=== PATIENT | female | born 1945 | race Caucasian/White ===

== ENCOUNTER 2019-10-18 08:27 | Outpatient (CLI) | payer MEDICARE, SELFPAY ==
--- NOTE | ~2019-10-18 | XR_ITS ---
XR chest 2V DATE: 10/18/2019 08:50 INDICATION: Malignant neoplasm of lung TECHNIQUE: PA and lateral views COMPARISON: 04/18/2019 CT chest 12/13/2018 2 view chest FINDINGS: There is elevation of the left hilum consistent with left upper lobectomy. There is mild patchy infiltrate or atelectasis. The lungs otherwise appear clear. Normal heart size. Aortic calcification and mild unfolding. No pleural effusion or pulmonary vascular congestion or normal or pneumothorax. There is levoscoliosis and degenerative spurring of the thoracic spine. No suspicious osteolytic or o steoblastic lesions are identified. In the left lower lung IMPRESSION: Mild infiltrate or atelectasis, left lower lung Status post left upper lobectomy Reviewed, dictated and finalized at location B. RGY NURSE
== END 2019-10-18 08:28 | disposition home or self-care (01) ==
PROVIDERS: PCP Family Medicine; Visit Provider Internal Medicine Hematology & Oncology
DX: C34.90 Malignant neoplasm of unspecified part of unspecified bronchus or lung (principal); R91.8 Other nonspecific abnormal finding of lung field
CPT/HCPCS: 71046

== ENCOUNTER 2019-11-01 10:58 | Outpatient (CLI) | payer MEDICARE, SELFPAY ==
[2019-11-01 11:14] LABS: Basophils Percent Auto 0.6 % (0.2-1.2); Eosinophils Absolute Auto 0.1 K/mm3 (0-0.3); Hematocrit 46.2 % (37.0-47.0); Hemoglobin 15.4 g/dL (12.0-15.0); Immature Granulocyte Absolute 0.02 K/mm3 (0.00-0.031); Immature Granulocyte Percent A 0.3 % (0-0.5); Lymphocytes Absolute Auto 0.82 K/mm3 (0.9-3.2); Lymphocytes Percent Auto 11.7 % (18.3-44.2); Mean Corpuscular HGB Conc 33.3 g/dl (32-36); Mean Corpuscular Hemoglobin 30.6 pg (26-34); Mean Corpuscular Volume 91.8 fl (80-100); Mean Platelet Volume 9.8 fl (7.4-10.4); Monocytes Absolute Auto 0.6 K/mm3 (0.1-0.6); Monocytes Percent Auto 8.4 % (2.6-8.5); Neutrophils Absolute Auto 5.4 K/mm3 (1.3-6.7); Platelet Count Result 221 k/mm3 (150-375); Red Blood Count 5.03 M/mm3 (4.2-5.4); Red Cell Distribution Width 12.2 % (11.5-14.5)
[2019-11-01 11:20] LABS: Blood Urea Nitrogen 23 mg/dL (8-26); Carbon Dioxide 30 mmol/L (22-30); Chloride 101 mmol/L (98-109); Estimated Glomerular Filt Rate 48; Glucose 128 mg/dL (70-105); Potassium 3.8 mmol/L (3.5-4.9); Sodium 143 mmol/L (138-146)
[2019-11-01 13:02] LABS: Alanine Aminotransferase 29 U/L (4-35); Albumin Level 4.5 g/dL (3.5-5.1); Alkaline Phosphatase 98 U/L (38-126); Aspartate Amino Transferase 33 U/L (14-36); Bilirubin,Total 0.5 mg/dL (0.2-1.3); Blood Urea Nitrogen 22 mg/dL (7-17); Calcium 10.6 mg/dL (8.4-10.2); Carbon Dioxide 30 mmol/L (22-30); Chloride 101 mmol/L (98-107); Estimated Glomerular Filt Rate 54; Glucose 131 mg/dL (65-105); Sodium 143 mmol/L (137-145)
== END 2019-11-01 10:59 | disposition home or self-care (01) ==
LOC: ANHLAB 11:00
PROVIDERS: PCP Family Medicine; Visit Provider Internal Medicine Hematology & Oncology
DX: C34.90 Malignant neoplasm of unspecified part of unspecified bronchus or lung (principal)
CPT/HCPCS: 36415; 80048; 80053; 85025

== ENCOUNTER 2020-04-24 07:31 | Outpatient (CLI) | payer MEDICARE, SELFPAY ==
--- NOTE | ~2020-04-24 | CT_ITS ---
EXAMINATION: CT chest w con DATE: 04/24/2020 08:20 INDICATION: Malignant neoplasm of unspec part of LT bronchus/lung TECHNIQUE: Computed tomography (CT) of the chest was performed with 75 mL Omnipaque-350 intravenous c ontrast. Additional 3D reconstructions utilizing coronal maximum intensity projection (MIP) were perf ormed. Automated exposure control and iterative reconstruction technique were employed. The dose-dedra th product was 244.18 mGy-cm. COMPARISON: None FINDINGS: Change of prior left upper lobectomy with no significant interval change in scarring along suture kadi es at the medial aspect of the remaining left lung. Mild dependent atelectasis in the right lower lob e. No pneumonia, pulmonary edema or right pleural effusion. Small left pleural effusion. No interval change in multiple pulmonary nodules including an 8 mm nodule at the anterior left lung base, a 7 x 4 mm nodule in the left midlung and a few scattered bilateral 4 mm or smaller pulmonary nodules. No ne w or enlarging pulmonary nodules. Heart size is normal but with biatrial enlargement. Atherosclerotic coronary artery calcifications as well as likely stenting along the right coronary artery. Prior per icardial effusion has resolved. Thoracic aorta is normal in caliber with no dissection. A few coarse calcifications in the enlarged left thyroid lobe with change of prior right thyroidectomy. No change in a few mildly prominent prevascular lymph nodes in the anterior superior mediastinum. No new or enl arging thoracic lymphadenopathy. Small sliding-type hiatal hernia. Partially visualized lipoma underl shirley the right serratus anterior. Mild left renal atrophy. Severe spondylosis extending from the lowe r cervical through the upper lumbar spine. Chronic mild anterior wedging of a few lower thoracic vert ebral bodies. IMPRESSION: 1. Stable appearance of several chronic pulmonary nodules as well as a few mildly prominent prevascul ar mediastinal lymph nodes. No new or enlarging pulmonary nodules or lymphadenopathy to suggest metas tatic disease. 2. Postoperative change of prior left upper lobectomy with unchanged small left pleural effusion. 3. Small sliding-type hiatal hernia. 4. Unchanged left-sided goiter with change of prior right hemithyroidectomy. 5. Mild left renal atrophy. Reviewed, dictated and finalized at location A. IMPRESSION: 1. Stable appearance of several chronic pulmonary nodules as well as a few mild ly prominent prevascular mediastinal lymph nodes. No new or enlarging pulmonary nodules or lymphadenopathy to suggest metastatic disease. 2. Postoperative change of prior left upper lobectomy with unchanged small left pleural effusion. 3. Small sliding-type hiatal hernia. 4. Unchanged left-sided goiter with change of prior right hemithyroidectomy. 5. Mild left renal atrophy.
[2020-04-24 08:01] LABS: Estimated Glomerular Filt Rate 48
== END 2020-04-24 07:32 | disposition home or self-care (01) ==
LOC: ANHIMG 07:33
PROVIDERS: PCP Family Medicine; Visit Provider Internal Medicine Hematology & Oncology
DX: C34.92 Malignant neoplasm of unspecified part of left bronchus or lung (principal); R91.8 Other nonspecific abnormal finding of lung field; R59.0 Localized enlarged lymph nodes; J90 Pleural effusion, not elsewhere classified; K44.9 Diaphragmatic hernia without obstruction or gangrene; E04.9 Nontoxic goiter, unspecified; N26.1 Atrophy of kidney (terminal)
CPT/HCPCS: 36415; 71260; Q9967

== ENCOUNTER 2020-05-01 10:14 | Outpatient (CLI) | payer MEDICARE, SELFPAY ==
[2020-05-01 10:29] LABS: Basophils Percent Auto 0.5 % (0.2-1.2); Eosinophils Absolute Auto 0.2 K/mm3 (0-0.3); Eosinophils Percent Auto 1.8 % (0-4.4); Hematocrit 47.8 % (37.0-47.0); Immature Granulocyte Absolute 0.01 K/mm3 (0.00-0.031); Immature Granulocyte Percent A 0.1 % (0-0.5); Lymphocytes Absolute Auto 0.91 K/mm3 (0.9-3.2); Lymphocytes Percent Auto 10.7 % (18.3-44.2); Mean Corpuscular HGB Conc 33.5 g/dl (32-36); Mean Corpuscular Hemoglobin 31.1 pg (26-34); Mean Corpuscular Volume 92.8 fl (80-100); Mean Platelet Volume 9.6 fl (7.4-10.4); Monocytes Absolute Auto 0.7 K/mm3 (0.1-0.6); Monocytes Percent Auto 7.9 % (2.6-8.5); Neutrophils Absolute Auto 6.7 K/mm3 (1.3-6.7); Platelet Count Result 224 k/mm3 (150-375); Red Blood Count 5.15 M/mm3 (4.2-5.4); Red Cell Distribution Width 12.8 % (11.5-14.5); White Blood Count 8.5 K/mm3 (4.5-10.0)
[2020-05-01 10:33] LABS: Blood Urea Nitrogen 22 mg/dL (8-26); Carbon Dioxide 29 mmol/L (22-30); Chloride 102 mmol/L (98-109); Estimated Glomerular Filt Rate 44; Glucose 160 mg/dL (70-105); Potassium 4.1 mmol/L (3.5-4.9); Sodium 144 mmol/L (138-146)
[2020-05-01 12:02] LABS: Alanine Aminotransferase 40 U/L (4-35); Albumin Level 4.8 g/dL (3.5-5.1); Alkaline Phosphatase 103 U/L (38-126); Anion Gap 10 mmol/L (8-16); Aspartate Amino Transferase 41 U/L (14-36); Bilirubin,Total 0.8 mg/dL (0.2-1.3); Blood Urea Nitrogen 22 mg/dL (7-17); Calcium 10.2 mg/dL (8.4-10.2); Carbon Dioxide 29 mmol/L (22-30); Chloride 102 mmol/L (98-107); Estimated Glomerular Filt Rate 54; Glucose 163 mg/dL (65-105); Potassium 4.4 mmol/L (3.4-5.0); Sodium 141 mmol/L (137-145)
== END 2020-05-01 10:15 | disposition home or self-care (01) ==
LOC: ANHLAB 10:16
PROVIDERS: PCP Family Medicine; Visit Provider Internal Medicine Hematology & Oncology
DX: C34.92 Malignant neoplasm of unspecified part of left bronchus or lung (principal)
CPT/HCPCS: 36415; 80048; 80053; 85025

== ENCOUNTER 2020-05-20 09:57 | Outpatient (CLI) | payer MEDICARE, SELFPAY ==
--- NOTE | ~2020-05-20 | CT_ITS ---
EXAMINATION: CT brain wo con DATE: 05/20/2020 10:25 INDICATION: Meningioma TECHNIQUE: Computed tomography (CT) of the head was performed without intravenous contrast. The mA wa s adjusted according to patient size. Iterative reconstruction technique was employed. Exam dose: 60 5.33 mGy-cm total exam DLP. COMPARISON: 07/18/2019 CT brain FINDINGS: There is a stable 2.8 cm ossified meningioma at the roof of the right petrous temporal bone , unchanged since 07/18/2019. There is no surrounding edema. No intracranial mass lesion or hemorrhage or cerebrovascular accident is evident. No midline shift or mass effect. No subdural or epidural hematoma. No fracture or bone destruction of the cranial vault. There is moderate mucoperiosteal thickening of the right maxillary sinus, small fluid level or focal posterior soft tissue thickening of the left maxillary sinus. IMPRESSION: Stable 2.8 cm ossified right-sided meningioma since 07/18/2019 Reviewed, dictated and finalized at Location A. Reviewed, dictated and finalized at location A.
== END 2020-05-20 09:58 | disposition home or self-care (01) ==
PROVIDERS: PCP Family Medicine; Visit Provider Neurological Surgery
DX: D32.9 Benign neoplasm of meninges, unspecified (principal)
CPT/HCPCS: 70450

== ENCOUNTER → 2020-07-17 10:13 | Outpatient (CLI) | payer MEDICARE, SELFPAY ==
--- NOTE | ~2020-07-17 | MM_ITS ---
EXAMINATION: MM screening francisca BI w jf HISTORY: Screening TECHNIQUE: Craniocaudal and mediolateral oblique 3-D tomosynthesis images were obtained and synthetic 2-D images were generated. CAD analysis was submitted and interpreted. COMPARISON: Comparison to multiple prior studies sequentially, with oldest reviewed study dated 07/13. BREAST PARENCHYMAL COMPOSITION: There are scattered areas of fibroglandular density. FINDINGS: There is no evidence of suspicious mass, calcification, or architectural distortion to sugg est malignancy in either breast. There has been no suspicious interval change. IMPRESSION: 1. No mammographic evidence of malignancy. 2. Recommend routine screening mammography in one year. BI-RADS Category 1: Negative Reviewed, dictated and finalized at location A. PTIONAL CHILDREN'S TEACHER
== END ==
PROVIDERS: PCP Family Medicine; Visit Provider Family Medicine
DX: Z12.31 Encounter for screening mammogram for malignant neoplasm of breast (principal)
CPT/HCPCS: 77063; 77067

== ENCOUNTER 2020-11-14 08:42 | Outpatient (CLI) | payer MEDICARE, SELFPAY ==
[2020-11-14 08:59] LABS: Basophils Percent Auto 0.5 % (0.2-1.2); Eosinophils Absolute Auto 0.3 K/mm3 (0-0.3); Eosinophils Percent Auto 4.5 % (0-4.4); Hematocrit 46.6 % (37.0-47.0); Hemoglobin 15.7 g/dL (12.0-15.0); Immature Granulocyte Absolute 0.02 K/mm3 (0.00-0.031); Immature Granulocyte Percent A 0.3 % (0-0.5); Lymphocytes Absolute Auto 0.73 K/mm3 (0.9-3.2); Lymphocytes Percent Auto 12.1 % (18.3-44.2); Mean Corpuscular HGB Conc 33.7 g/dl (32-36); Mean Corpuscular Hemoglobin 30.6 pg (26-34); Mean Corpuscular Volume 90.8 fl (80-100); Mean Platelet Volume 9.7 fl (7.4-10.4); Monocytes Absolute Auto 0.7 K/mm3 (0.1-0.6); Monocytes Percent Auto 11.8 % (2.6-8.5); Neutrophils Absolute Auto 4.3 K/mm3 (1.3-6.7); Neutrophils Percent Auto 70.8 % (45.5-73.1); Platelet Count Result 198 k/mm3 (150-375); Red Blood Count 5.13 M/mm3 (4.2-5.4); Red Cell Distribution Width 12.2 % (11.5-14.5)
[2020-11-14 09:02] LABS: Blood Urea Nitrogen 22 mg/dL (8-26); Carbon Dioxide 27 mmol/L (22-30); Chloride 102 mmol/L (98-109); Estimated Glomerular Filt Rate 48; Glucose 185 mg/dL (70-105); Potassium 3.7 mmol/L (3.5-4.9); Sodium 141 mmol/L (138-146)
[2020-11-14 12:36] LABS: Alanine Aminotransferase 27 U/L (4-35); Albumin Level 4.2 g/dL (3.5-5.1); Alkaline Phosphatase 118 U/L (38-126); Anion Gap 10 mmol/L (8-16); Aspartate Amino Transferase 34 U/L (14-36); Bilirubin,Total 0.6 mg/dL (0.2-1.3); Blood Urea Nitrogen 21 mg/dL (7-17); Carbon Dioxide 28 mmol/L (22-30); Chloride 103 mmol/L (98-107); Estimated Glomerular Filt Rate 54; Glucose 180 mg/dL (65-105); Sodium 141 mmol/L (137-145)
== END 2020-11-14 08:43 | disposition home or self-care (01) ==
LOC: ANHLAB 08:44
PROVIDERS: PCP Family Medicine; Visit Provider Internal Medicine Hematology & Oncology
DX: C34.92 Malignant neoplasm of unspecified part of left bronchus or lung (principal)
CPT/HCPCS: 36415; 80048; 80053; 85025

== ENCOUNTER 2020-11-18 08:13 | Outpatient (CLI) | payer MEDICARE, SELFPAY ==
--- NOTE | ~2020-11-18 | CT_ITS ---
EXAMINATION: CT diagnostic chest w con EXAM DATE: 11/18/2020 08:49 INDICATION: Malignant neoplasm of unspec part of LT bronchus/lung. TECHNIQUE: Spiral CT of the chest following intravenous injection of 75 mL Omnipaque 350. Axial, cor onal and sagittal images were reviewed. Coronal maximum intensity pixel images of chest reviewed. T slaty dose-length product (DLP) for this examination was 234.31 mGy-cm. The exposure was tailored accor ding to patient size (auto mA exposure control), and iterative reconstruction (ASIR) was used as charles tional dose reduction technique. Comparison is made to prior examination from 04/24/2020. FINDINGS: Left-sided volume loss, left upper lobectomy. No new or suspicious nodules. With stable po stoperative appearance. There is small left pleural effusion which is unchanged. Again there are latosha ral pulmonary nodules, some groundglass density, up to about 4 mm and unchanged Tracheobronchial tr ee is patent. The largest lymph node is in the right infrahilar region measuring about 1.1 x 1.1 cm unchanged. There is no pneumothorax. Heart normal in size. There is moderate coronary arterial calcification, arterial sclerosis. There is small to moderate sliding gastroesophageal hiatal hernia. There is moderate thoracic spondylosis without osteoblastic or osteolytic lesions identified. IMPRESSION: Stable exam. Reviewed, dictated and finalized at location B. RAISER IMPRESSION: Stable exam.
== END 2020-11-18 08:14 | disposition home or self-care (01) ==
PROVIDERS: PCP Family Medicine; Visit Provider Internal Medicine Hematology & Oncology
DX: C34.92 Malignant neoplasm of unspecified part of left bronchus or lung (principal); Z90.2 Acquired absence of lung [part of]; J90 Pleural effusion, not elsewhere classified; R91.8 Other nonspecific abnormal finding of lung field; I25.10 Atherosclerotic heart disease of native coronary artery without angina pectoris; K44.9 Diaphragmatic hernia without obstruction or gangrene
CPT/HCPCS: 71260; Q9967

== ENCOUNTER 2021-05-22 08:48 | Outpatient (CLI) | payer MEDICARE, SELFPAY ==
--- NOTE | ~2021-05-22 | CT_ITS ---
EXAMINATION: CT diagnostic chest w con EXAM DATE: 05/22/2021 09:38 INDICATION: Malignant neoplasm of left bronchus. TECHNIQUE: Spiral CT of the chest following intravenous injection of 75 mL Omnipaque 350. Axial, cor onal and sagittal images of the chest were reviewed. Coronal maximum intensity pixel images of chest reviewed. The dose-length product (DLP) for this examination was 200.79 mGy-cm. The exposure was t ailored according to patient size (auto mA exposure control), and iterative reconstruction (ASIR) was used as additional dose reduction technique. Comparison is made to prior examination from 11/18/2020. FINDINGS: Right thyroid lobectomy and partial left pneumonectomy. Trace left pleural effusion, decr ease in size. Tracheobronchial tree is patent. Subcentimeter nodule along the left hemidiaphragm unc hanged, likely postinfectious. Previously described right infrahilar lymph node has normalized in siz e. Slightly more prominent mediastinal lymph nodes, but no pathologically enlarged lymph nodes on tod ay's exam. There is no pneumothorax. Mild emphysema. Heart normal in size. There is moderate coron marilee arterial calcification, arterial sclerosis. There is small to moderate sliding gastroesophageal h iatal hernia. There is moderate thoracic spondylosis without osteoblastic or osteolytic lesions iden tified. IMPRESSION: Stable exam. Reviewed, dictated and finalized at location A. IMPRESSION: Stable exam.
[2021-05-22 09:33] LABS: Estimated Glomerular Filt Rate 48
== END 2021-05-22 08:49 | disposition home or self-care (01) ==
LOC: ANHIMG 08:53
PROVIDERS: PCP Family Medicine; Visit Provider Internal Medicine Hematology & Oncology
DX: C34.92 Malignant neoplasm of unspecified part of left bronchus or lung (principal)
CPT/HCPCS: 71260; Q9967

== ENCOUNTER 2021-05-29 09:10 | Outpatient (CLI) | payer MEDICARE, SELFPAY ==
[2021-05-29 09:29] LABS: Basophils Percent Auto 0.4 % (0.2-1.2); Eosinophils Absolute Auto 0.1 K/mm3 (0-0.3); Eosinophils Percent Auto 1.1 % (0-4.4); Hematocrit 46.5 % (37.0-47.0); Hemoglobin 15.4 g/dL (12.0-15.0); Immature Granulocyte Absolute 0.03 K/mm3 (0.00-0.031); Immature Granulocyte Percent A 0.4 % (0-0.5); Lymphocytes Absolute Auto 0.82 K/mm3 (0.9-3.2); Lymphocytes Percent Auto 9.9 % (18.3-44.2); Mean Corpuscular HGB Conc 33.1 g/dl (32-36); Mean Corpuscular Volume 90.5 fl (80-100); Mean Platelet Volume 9.6 fl (7.4-10.4); Monocytes Absolute Auto 0.6 K/mm3 (0.1-0.6); Monocytes Percent Auto 7.6 % (2.6-8.5); Neutrophils Absolute Auto 6.7 K/mm3 (1.3-6.7); Neutrophils Percent Auto 80.6 % (45.5-73.1); Platelet Count Result 231 k/mm3 (150-375); Red Blood Count 5.14 M/mm3 (4.2-5.4); Red Cell Distribution Width 12.6 % (11.5-14.5); White Blood Count 8.3 K/mm3 (4.5-10.0)
[2021-05-29 09:33] LABS: Blood Urea Nitrogen 25 mg/dL (8-26); Carbon Dioxide 30 mmol/L (22-30); Chloride 99 mmol/L (98-109); Estimated Glomerular Filt Rate 44; Glucose 247 mg/dL (70-105); Sodium 141 mmol/L (138-146)
[2021-05-29 12:42] LABS: Alanine Aminotransferase 25 U/L (4-35); Albumin Level 4.4 g/dL (3.5-5.1); Alkaline Phosphatase 112 U/L (38-126); Anion Gap 10 mmol/L (8-16); Aspartate Amino Transferase 28 U/L (14-36); Bilirubin,Total 0.5 mg/dL (0.2-1.3); Blood Urea Nitrogen 24 mg/dL (7-17); Calcium 9.8 mg/dL (8.4-10.2); Carbon Dioxide 29 mmol/L (22-30); Chloride 100 mmol/L (98-107); Estimated Glomerular Filt Rate 48; Glucose 246 mg/dL (65-110); Potassium 4.1 mmol/L (3.4-5.0); Sodium 139 mmol/L (137-145)
== END 2021-05-29 09:11 | disposition home or self-care (01) ==
PROVIDERS: PCP Family Medicine; Visit Provider Internal Medicine Hematology & Oncology
DX: C34.92 Malignant neoplasm of unspecified part of left bronchus or lung (principal)
CPT/HCPCS: 36415; 80048; 80053; 85025

== ENCOUNTER → 2021-07-21 10:25 | Outpatient (CLI) | payer MEDICARE, SELFPAY ==
--- NOTE | ~2021-07-21 | MM_ITS ---
EXAMINATION: MM screening francisca BI w jf HISTORY: Screening mammogram TECHNIQUE: Craniocaudal and mediolateral oblique 3-D tomosynthesis images were obtained and synthetic 2-D images were generated. CAD analysis was submitted and interpreted. COMPARISON: 07/17/2020, 05/23/2019, 05/04/2018 bilateral screening mammogram examinations BREAST PARENCHYMAL COMPOSITION: FINDINGS: There is a 3.5 x 6 mm opacity in the anterior lower mid left breast; diagnostic left mammog na and targeted left ultrasound is recommended. There is no evidence of suspicious mass, calcification, or architectural distortion to suggest malign steven in either breast. There has been no suspicious interval change. IMPRESSION: 1. 3.5 x 6 mm opacity in the lower mid left breast. 2. Diagnostic left mammogram and left breast ultrasound are recommended. BI-RADS Category 0: Incomplete: Needs additional imaging evaluation. Reviewed, dictated and finalized at location A. S OPERATIONS DIRECTOR
== END ==
PROVIDERS: PCP Family Medicine; Visit Provider Family Medicine
DX: Z12.31 Encounter for screening mammogram for malignant neoplasm of breast (principal); R92.8 Other abnormal and inconclusive findings on diagnostic imaging of breast
CPT/HCPCS: 77063; 77067

== ENCOUNTER → 2021-08-18 08:39 | Outpatient (CLI) | payer MEDICARE, SELFPAY ==
--- NOTE | ~2021-08-18 | MMUS_ITS ---
EXAMINATION: MM diagnostic francisca LT w jf, US breast LT limited HISTORY: Follow-up left breast asymmetry TECHNIQUE: Additional 3-D tomosynthesis images of the left breast were performed and synthetic 2-D im ages were generated. CAD analysis was submitted and interpreted. High resolution Limited left breast ultrasound was performed. COMPARISON: Comparison to multiple prior studies sequentially, with oldest reviewed study dated 03/25. BREAST PARENCHYMAL COMPOSITION: Breast composed of scattered areas of fibroglandular density FINDINGS: MAMMOGRAPHIC FINDINGS: There are no suspicious masses, calcifications or architectural distortion in the left breast to sugg est malignancy. ULTRASOUND: Limited left breast ultrasound: At 5:00, 4 cm from the nipple, there is an oval circumscribed hypoech oic mass with parallel orientation, no posterior features and no internal vascularity measuring 4 mm maximum dimension, likely benign. IMPRESSION: 1. Probable benign left breast mass at 5:00, 4 cm from the nipple. 2. Recommend 6 month follow-up Limited left breast ultrasound BI-RADS Category 0: Incomplete: Needs additional imaging evaluation. Reviewed, dictated and finalized at location A. STEWARD/STEWARDESS IMPRESSION: 1. Probable benign left breast mass at 5:00, 4 cm from the nipple. 2. Recommend 6 month follow-up Limited left breast ultrasound BI-RADS Category 0: Incomplete: Needs additional imaging evaluation.
== END ==
PROVIDERS: PCP Family Medicine; Visit Provider Family Medicine
DX: R92.8 Other abnormal and inconclusive findings on diagnostic imaging of breast (principal)
CPT/HCPCS: 76642; 77061; 77065; G0279

== ENCOUNTER → 2022-02-18 08:36 | Outpatient (CLI) | payer MEDICARE, SELFPAY ==
--- NOTE | ~2022-02-18 | US_ITS ---
EXAMINATION: US breast LT limited HISTORY: Six-month follow-up for probably benign left breast mass TECHNIQUE: Limited left breast ultrasound is performed. FINDINGS: No persistent mass is identified at the 5:00 location in the left breast. No new mass is id entified. IMPRESSION: No sonographically detected mass identified. Routine screening mammography is recommended. BI-RADS Category 1: Negative Reviewed, dictated and finalized at location A. IMPRESSION: No sonographically detected mass identified. Routine screening mammography is r ecommended. BI-RADS Category 1: Negative
== END ==
PROVIDERS: PCP Family Medicine; Visit Provider Family Medicine
DX: R92.8 Other abnormal and inconclusive findings on diagnostic imaging of breast (principal)
CPT/HCPCS: 76642

== ENCOUNTER 2022-06-03 08:54 | Outpatient (CLI) | payer MEDICARE, SELFPAY ==
--- NOTE | ~2022-06-03 | CT_ITS ---
EXAMINATION:CT diagnostic chest wo con DATE: 06/03/2022 09:18 INDICATION: Malignant neoplasm of unspecified part of left bronchus. TECHNIQUE: Computed tomography (CT) of the chest was performed without intravenous contrast. Automate d exposure control and iterative reconstruction technique were employed. The dose-length product (DLP ) was 222.84 mGy-cm. COMPARISON: Chest CT 05/22/2021 FINDINGS: There is mild emphysema. There is mild scarring in paraspinal right lower lobe. There is se ptal thickening in the inferior lungs consistent mild pulmonary edema. There is a 5 mm part solid nod ule in right upper lobe. There is a 4 mm nodule in right upper lobe. There is a 4 mm nodule in right middle lobe. There is a 6 mm nodule in right lower lobe. There is a 7 mm nodule in left lower lobe. T here are changes of left upper lobectomy. There is a 9 mm groundglass opacity in left lower lobe. Aga in seen are a few 2-3 mm nodules in left lower lobe. There is a small left pleural effusion. There ar e changes of right hemithyroidectomy. Left thyroid lobe demonstrates heterogeneous attenuation and co arse calcifications. Cardiomegaly is noted. There are coronary artery calcifications. No pericardial effusion. There is a small sliding hiatal hernia. There is moderate thoracic spondylosis and severe c ervical and lumbar spondylosis. IMPRESSION: 1. Stable pulmonary nodules, likely benign. 2. Left upper lobectomy. 3. Small left pleural effusion. 4. Small sliding hiatal hernia. Reviewed, dictated and finalized at location A.
== END 2022-06-03 08:55 | disposition home or self-care (01) ==
PROVIDERS: PCP Family Medicine; Visit Provider Internal Medicine Hematology & Oncology
DX: C34.92 Malignant neoplasm of unspecified part of left bronchus or lung (principal); J90 Pleural effusion, not elsewhere classified; K44.9 Diaphragmatic hernia without obstruction or gangrene; Z90.2 Acquired absence of lung [part of]; I25.10 Atherosclerotic heart disease of native coronary artery without angina pectoris; M47.813 Spondylosis without myelopathy or radiculopathy, cervicothoracic region; M47.815 Spondylosis without myelopathy or radiculopathy, thoracolumbar region
CPT/HCPCS: 71250

== ENCOUNTER 2022-06-10 08:24 | Outpatient (CLI) | payer MEDICARE, SELFPAY ==
[2022-06-10 08:38] LABS: Basophils Percent Auto 0.5 % (0.2-1.2); Eosinophils Absolute Auto 0.2 K/mm3 (0-0.3); Eosinophils Percent Auto 2.6 % (0-4.4); Hematocrit 43.6 % (37.0-47.0); Hemoglobin 14.2 g/dL (12.0-15.0); Immature Granulocyte Absolute 0.02 K/mm3 (0.00-0.031); Immature Granulocyte Percent A 0.3 % (0-0.5); Lymphocytes Absolute Auto 0.52 K/mm3 (0.9-3.2); Mean Corpuscular HGB Conc 32.6 g/dl (32-36); Mean Corpuscular Hemoglobin 30.1 pg (26-34); Mean Corpuscular Volume 92.4 fl (80-100); Monocytes Absolute Auto 0.7 K/mm3 (0.1-0.6); Monocytes Percent Auto 10.7 % (2.6-8.5); Neutrophils Absolute Auto 5.1 K/mm3 (1.3-6.7); Neutrophils Percent Auto 77.9 % (45.5-73.1); Platelet Count Result 204 k/mm3 (150-375); Red Blood Count 4.72 M/mm3 (4.2-5.4); Red Cell Distribution Width 13.2 % (11.5-14.5); White Blood Count 6.5 K/mm3 (4.5-10.0)
[2022-06-10 08:44] LABS: Blood Urea Nitrogen 23 mg/dL (8-26); Carbon Dioxide 28 mmol/L (22-30); Chloride 103 mmol/L (98-109); Estimated Glomerular Filt Rate 48; Glucose 221 mg/dL (70-105); Ionized Calcium (POC) 1.27 mmol/L (1.11-1.31); Potassium 3.9 mmol/L (3.5-4.9); Sodium 142 mmol/L (138-146)
[2022-06-10 09:07] LABS: Alanine Aminotransferase 31 U/L (6-35); Albumin Level 4.1 g/dL (3.5-5.1); Alkaline Phosphatase 123 U/L (38-126); Anion Gap 11 mmol/L (8-16); Aspartate Amino Transferase 41 U/L (14-36); Bilirubin,Total 0.8 mg/dL (0.2-1.3); Blood Urea Nitrogen 25 mg/dL (7-17); Calcium 9.5 mg/dL (8.4-10.2); Carbon Dioxide 27 mmol/L (22-30); Chloride 102 mmol/L (98-107); Estimated Glomerular Filt Rate 54; Glucose 222 mg/dL (65-110); Potassium 3.9 mmol/L (3.4-5.0); Sodium 140 mmol/L (137-145)
== END 2022-06-10 08:25 | disposition home or self-care (01) ==
LOC: ANHLAB 08:26
PROVIDERS: PCP Family Medicine; Visit Provider Internal Medicine Hematology & Oncology
DX: C34.92 Malignant neoplasm of unspecified part of left bronchus or lung (principal)
CPT/HCPCS: 36415; 80047; 80053; 85025

== ENCOUNTER 2022-09-24 14:15 | Outpatient (CLI) | payer MEDICARE, SELFPAY ==
--- NOTE | ~2022-09-24 | US_ITS ---
EXAMINATION: US art doppler w marisela MC DATE: 09/24/2022 16:35 INDICATION: Peripheral vascular disease with claudication. TECHNIQUE: Segmental pressures and plethysmographic and Doppler waveforms of the brachial and lower e xtremity arteries were obtained. COMPARISON: None. FINDINGS: Right and left brachial artery pressures of 154 mm Hg and 167 mm Hg, respectively, are concordant (no rmal difference <= 30 mmHg). The right and left high-thigh pressure indices and bilateral ankle brach ial indices are unable to be obtained due to inability to occlude vessels throughout either lower stewart b with the exception that the great toes, the right [id number] popliteal artery and left above-th e-knee popliteal artery. The right great toe-brachial index (TBI) is 0.60 (normal >= 0.6-0.8). Arterial waveforms are biphasic throughout the arteries of the right lower limb. The left TBI is 2.89. Arterial waveforms are throughout the arteries of the left lower limb. IMPRESSION: 1. Normal TBIs bilaterally. No significant occlusive disease. Reviewed, dictated and finalized at location A. MBLER MECHANICAL ORDNANCE
== END 2022-09-24 14:16 | disposition home or self-care (01) ==
PROVIDERS: PCP Family Medicine; Visit Provider Podiatrist Foot & Ankle Surgery
DX: I73.89 Other specified peripheral vascular diseases (principal)
CPT/HCPCS: 93923

== ENCOUNTER → 2022-10-02 08:06 | Outpatient (CLI) | payer MEDICARE, SELFPAY ==
--- NOTE | ~2022-10-02 | MM_ITS ---
EXAMINATION: MM screening francisca BI w jf HISTORY: Screening mammogram TECHNIQUE: Craniocaudal and mediolateral oblique 3-D tomosynthesis images were obtained and synthetic 2-D images were generated. CAD analysis was submitted and interpreted. COMPARISON: 02/18/2022 Limited left breast ultrasound 08/18/2021 diagnostic left mammogram and left breast ultrasound 07/21/2021, 07/17/2020 bilateral screening mammogram examinations BREAST PARENCHYMAL COMPOSITION: There are scattered areas of fibroglandular density. FINDINGS: There is no evidence of suspicious mass, calcification, or architectural distortion to sugg est malignancy in either breast. There has been no suspicious interval change. IMPRESSION: 1. No mammographic evidence of malignancy. 2. Recommend routine screening mammography in one year. BI-RADS Category 1: Negative Reviewed, dictated and finalized at location A. K SHOP SUPERVISOR
== END ==
PROVIDERS: PCP Family Medicine; Visit Provider Family Medicine
DX: Z12.31 Encounter for screening mammogram for malignant neoplasm of breast (principal)
CPT/HCPCS: 77063; 77067

== ENCOUNTER 2022-11-23 10:02 | Inpatient (IN) | payer MEDICARE, SELFPAY ==
[2022-11-23] VITALS (22 sets, daily range): BP systolic 123–144; BP diastolic 42–113; PULSE 64–98; RESP 14–18; TEMP 36.6–36.8; O2SAT 95–100; BMI 28.5
--- NOTE | ~2022-11-23 | XR_ITS ---
Left foot Technique: AP, oblique, and lateral views were obtained. Clinical History: Diabetic foot infection Findings: No acute fracture or dislocation is seen. There is mild degenerative change at the first me tatarsophalangeal joint. No radiographic evidence for osteomyelitis. There is soft tissue gas at the first MTP joint region laterally. Impression: Soft tissue gas at the first MTP joint region, especially laterally. This is consistent with soft tis curtis infection/ulcer. No radiographic evidence for osteomyelitis. Consider MR for further evaluation if indicated. Reviewed, dictated and finalized at location . Impression: Soft tissue gas at the first MTP joint region, especially laterally. This is co nsistent with soft tissue infection/ulcer. No radiographic evidence for osteomyelitis. Consider MR for further evaluation if indicated.
--- NOTE | 2022-11-23 11:47 | ED.WOUNDLAC ---
HPI - Wound/Laceration General Chief Complaint: Wound/Laceration <Mercedes Espinosa PA-C - Last Filed: 11/23/22 17:04> Stated Complaint: wound <JORDI Andre Last Filed: 11/23/22 17:04> Time Seen by Provider: 11/23/22 11:12 <JORDI Andre Last Filed: 11/23/22 17:04> Source: patient <Mercedes Espinosa PA-C - Last Filed: 11/23/22 17:04> Mode of arrival: ambulatory <JORDI Andre Last Filed: 11/23/22 17:04> Limitations: no limitations <Mercedes Espinosa PA-C - Last Filed: 11/23/22 17:04> History of Present Illness HPI narrative: This is a 77-year-old female that presents emergency department for foot infection. Ongoing over the last week. Reports she was evaluated by her biological sciences instructor for this. Started on 2 antibiotics. She is still finishing one of them. She followed back up with him today and was sent to the ER for further management. Reports the redness and swelling has increased. She has a wound on the bottom of the left foot. Reports history of diabetes. She is not a smoker. Denies fevers or numbness. <Mercedes Espinosa PA-C - Last Filed: 11/23/22 17:04> Related Data Home Medications: Home Medications Medication Instructions Recorded Confirmed atorvastatin 20 mg tablet 40 mg PO HS 02/16/22 11/23/22 metoprolol succinate 100 mg 150 mg PO DAILY 06/28/22 11/23/22 tablet,extended release 24 hr aspirin 81 mg capsule 81 mg PO DAILY 11/23/22 11/23/22 calcium citrate 200 mg (950 mg) 200 mg PO DAILY 11/23/22 11/23/22 tablet cholecalciferol (vitamin D3) 25 25 mcg PO DAILY 11/23/22 11/23/22 mcg (1,000 unit) tablet diltiazem HCl 180 mg capsule,24 180 mg PO DAILY 11/23/22 11/23/22 hr,extended release gabapentin 300 mg capsule 300 mg PO HS 11/23/22 11/23/22 gabapentin 300 mg capsule 600 mg PO DIRECTED 11/23/22 11/23/22 glimepiride 4 mg tablet 4 mg PO DAILY 11/23/22 11/23/22 glucosamine sulf dipot 2 cap PO DAILY 11/23/22 11/23/22 chlr,msm,chond 550 mg-C 30 mg-shawna 1 mg capsule (Glucosamine Chondroitin) indapamide 1.25 mg tablet 1.25 mg PO DAILY 11/23/22 11/23/22 insulin human U-100 NPH-regulr 10 unit subcut QPM 11/23/22 11/23/22 70-30 mix 100 unit/mL subcutaneous susp (Novolin 70/30 U-100 Insulin) insulin human U-100 NPH-regulr 20 unit subcut QAM 11/23/22 11/23/22 70-30 mix 100 unit/mL subcutaneous susp (Novolin 70/30 U-100 Insulin) levothyroxine 50 mcg tablet 75 mcg PO DAILY 11/23/22 11/23/22 lisinopril 20 mg tablet 40 mg PO HS 11/23/22 11/23/22 magnesium 250 mg tablet 250 mg PO DAILY 11/23/22 11/23/22 metformin 500 mg tablet 1,000 mg PO QAM AND QHS 11/23/22 11/23/22 multivitamin 1 tablet PO DAILY 11/23/22 11/23/22 rivaroxaban 20 mg tablet (Xarelto) 20 mg PO HS 11/23/22 11/23/22 vitamin B complex (B 1 tablet PO DAILY 11/23/22 11/23/22 Complex-Vitamin B12 tablet) <Mrecedes Espinosa PA-C - Last Filed: 11/23/22 17:04> Allergies/Adverse Reactions: Allergies Allergy/AdvReac Type Severity Reaction Status Date / Time No Known Allergies Allergy Verified 11/23/22 11:34 <Mercedes Espinosa PA-C - Last Filed: 11/23/22 17:04> Review of Systems Review of Systems: CONSTITUTIONAL: Denies fever SKIN: Reports erythema NEUROLOGIC: Denies numbness <Mercedes Espinosa PA-C - Last Filed: 11/23/22 17:04> All systems reviewed & are unremarkable except as noted in HPI and below <Mercedes Espinosa PA-C - Last Filed: 11/23/22 17:04> [facility] Past Medical History Medical History: Medical History (Updated 11/23/22 @ 17:00 by Mercedes Espinosa PA-C) Anxiety Chronic kidney disease, stage 3 Chronic low back pain Coronary artery disease Essential (primary) hypertension Goiter, specified as simple History of benign breast biopsy Hypothyroidism (acquired) Mixed hyperlipidemia Paroxysmal atrial fibrillation Peripheral vascular disease Type 2 diabetes mellitus with diabetic neuropathy, unspecified <Mercedes Espinosa PA-C - Last Fi
[2022-11-23 12:09] LABS: Basophils Percent Auto 0.2 % (0.2-1.2); Eosinophils Percent Auto 0.2 % (0-4.4); Hematocrit 40.7 % (37.0-47.0); Hemoglobin 13.2 g/dL (12.0-15.0); Immature Granulocyte Absolute 0.05 K/mm3 (0.00-0.031); Immature Granulocyte Percent A 0.3 % (0-0.5); Lymphocytes Absolute Auto 0.58 K/mm3 (0.9-3.2); Lymphocytes Percent Auto 3.9 % (18.3-44.2); Mean Corpuscular HGB Conc 32.4 g/dl (32-36); Mean Corpuscular Hemoglobin 29.1 pg (26-34); Mean Corpuscular Volume 89.8 fl (80-100); Monocytes Absolute Auto 1.2 K/mm3 (0.1-0.6); Monocytes Percent Auto 8.3 % (2.6-8.5); Neutrophils Percent Auto 87.1 % (45.5-73.1); Platelet Count Result 329 k/mm3 (150-375); Red Blood Count 4.53 M/mm3 (4.2-5.4); Red Cell Distribution Width 14.3 % (11.5-14.5); White Blood Count 14.9 K/mm3 (4.5-10.0)
[2022-11-23 12:28] LABS: Calcium 9.9 mg/dL (8.4-10.2)
[2022-11-23 12:31] LABS: Anion Gap 11 mmol/L (8-16); Blood Urea Nitrogen 25 mg/dL (7-17); Carbon Dioxide 25 mmol/L (22-30); Chloride 104 mmol/L (98-107); Estimated CRCL calculation 32 ml/min; Estimated Glomerular Filt Rate 36; Glucose 119 mg/dL (65-110); Sodium 140 mmol/L (137-145)
[2022-11-23 12:37] LABS: CRP 12.9 mg/dL (<1.0)
[2022-11-23 12:39] LABS: Erythrocyte Sedimentation Rate 50 mm/hr (0-20)
[2022-11-23] MEDS: SODIUM CHLORIDE 0.9% IV 500 ML 999 ML IV CONT (13:45)
[2022-11-23] MEDS: metroNIDAZOLE 500 MG/ISO 100ML 500 MG/100 ML BAG 100 MG IVPB (14:17)
--- NOTE | 2022-11-23 15:09 | PM.CNGS ---
Assessment and Plan Assessment and plan (1) Diabetic foot ulcer: Qualifiers: Diabetes mellitus type: type 2 Diabetic foot ulcer location: midfoot Laterality: left Non-pressure ulcer stage: unspecified non-pressure ulcer stage Qualified Code(s): E11.621 - Type 2 diabetes mellitus with foot ulcer; L97.429 - Non-pressure chronic ulcer of left heel and midfoot with unspecified severity Code(s): E11.621 - Type 2 diabetes mellitus with foot ulcer; L97.509 - Non-pressure chronic ulcer of other part of unspecified foot with unspecified severity Status: Acute Assessment and Plan: Infected diabetic foot ulcer on the plantar aspect of the left foot over the 1st MTP joint. There is a small open ulcer with undermining laterally towards the 2nd metatarsal. No obvious purulent drainage or significant necrotic tissue seen on exam. X-rays are negative for evidence of osteomyelitis. Would recommend to continue broad-spectrum IV antibiotics and initiate local wound care with silver gel dressing changes daily. No indication for emergent surgical intervention. May consider proceeding with incision and drainage at the bedside with local anesthetic in the next few days to help open the ulcer up laterally where it is tunneling and allow for better wound care and visualization. Thank you for allowing us to see the patient in consultation and we will continue to follow along with you. (2) Cellulitis of left lower extremity: Code(s): L03.116 - Cellulitis of left lower limb Status: Acute Assessment and Plan: Continue broad-spectrum IV antibiotics. (3) Peripheral vascular disease: Code(s): I73.9 - Peripheral vascular disease, unspecified Status: Acute Assessment and Plan: Diminished lower extremity DP and PT pulses bilaterally on exam. Had colton. LE arterial dopplers in September that showed normal TBIs but unable to obtain ABIs. No evidence of critical limb ischemia, but likely has chronic peripheral arterial disease. Has already been set up with vascular surgery as an outpatient at the end of the month. (4) Paroxysmal atrial fibrillation: Code(s): I48.0 - Paroxysmal atrial fibrillation Status: Acute Assessment and Plan: Regular rate and rhythm on exam. (5) Anticoagulant long-term use: Code(s): Z79.01 - terminal clerk (current) use of anticoagulants Status: Acute Assessment and Plan: Currently on Xarelto for atrial fibrillation. (6) CAD (coronary artery disease): Code(s): I25.10 - Atherosclerotic heart disease of [place] coronary artery without angina pectoris Status: Acute (7) Acute on chronic kidney failure: Code(s): N17.9 - Acute kidney failure, unspecified; N18.9 - Chronic kidney disease, unspecified Status: Acute Assessment and Plan: Baseline creatinine appears to be 1.0-1.2 and is up slightly to 1.4 on labs. Management per Hospitalist. (8) Type 2 diabetes mellitus with diabetic neuropathy, unspecified: Code(s): E11.40 - Type 2 diabetes mellitus with diabetic neuropathy, unspecified Status: Acute Assessment and Plan: Insulin dependent diabetic that appears to be controlled with glucose in the 110's on admission and most recent hgb A1C of 7.2 in June. Management per Hospitalist. (9) Essential (primary) hypertension: Code(s): I10 - Essential (primary) hypertension Status: Acute Plan I have discussed the patient's case and plan of care with Dr. Chavarria. History of Present Illness Consult details Consult date: 11/23/22 Reason for consult: wound care (Left diabetic foot ulcer) Requesting physician: Mercedes Espinosa PA-C Narrative: This is a 77-year-old woman with a history of insulin-dependent type 2 diabetes mellitus, atrial fibrillation on Xarelto, coronary artery disease, hypothyroidism, hyperlipidemia, and hypertension, who was directed to the ER by her Hazard Mitigation Officer today. She has been follow
--- NOTE | 2022-11-23 15:10 | PC.NURSE ---
General Surgery at bedside at this time.
--- NOTE | 2022-11-23 15:15 | PM.IMHP ---
H&P: HPI History of Present Illness Date/Time: 11/23/22 15:15 Chief Complaint: Worsening left foot infection. Narrative: This is a very pleasant 77-year-old female with insulin-dependent diabetes, hypertension, hyperlipidemia, coronary artery disease, hypothyroidism, and paroxysmal atrial fibrillation on chronic anticoagulation who presented to the emergency department for evaluation of worsening left foot infection. Patient provides the following history. A couple weeks ago she noticed a small wound on the ball of her left foot and it formed a callus or blister about a week later. She was seen by computer designer last week and was started on 2 different antibiotics. Today she had a follow-up appointment with her computer designer and was sent to the ER for IV antibiotics due to redness that has developed around the area and up the leg. She has not had any overt systemic symptoms but does endorse chills last couple of nights. She has not had fever or sweats. Appetite has been good without nausea and vomiting. Glucose has been reasonable, not above 140. She has neuropathy and does not have much pain in the area. She was afebrile on arrival to the emergency department with stable vital signs. Pertinent labs include a white blood cell count of 14.9, ESR 50, CRP 12.9, creatinine 1.40 (up from baseline which is between 1.1 and 1.20). Radiographs of the right foot showed soft tissue gas at the 1st MTP joint region and no radiographic evidence of osteomyelitis. She is being admitted in this setting for IV antibiotics. Review of Systems Review of Systems: Twelve systems were reviewed and are negative except for as per HPI. [facility] Past Medical History Medical History (Updated 11/23/22 @ 22:58 by Heaven Low PA-C) Anxiety Chronic kidney disease, stage 3 Chronic low back pain Coronary artery disease Essential (primary) hypertension Goiter, specified as simple History of benign breast biopsy Hypothyroidism (acquired) Mixed hyperlipidemia Paroxysmal atrial fibrillation Peripheral vascular disease Type 2 diabetes mellitus with diabetic neuropathy, unspecified Surgical History Surgical History (Updated 11/23/22 @ 15:09 by Heaven Low PA-C) History of coronary artery stent placement 1999 and 2009 History of lobectomy of lung (08/2016) Excision left upper lobe mass. History of partial thyroidectomy (2010) History of right knee joint replacement (2015) Family History Family History Grandparent Diabetes mellitus Cerebrovascular accident Mother Hypertension Family history of elevated blood lipids, Onset Age: 75 Family history of cardiovascular disease, Onset Age: 75 Acute myocardial infarction, Onset Age: 75 Patient's mother is Father Hypertension Family history of cardiovascular disease, Onset Age: 60 Patient's father is Sibling Hypertension Family history of elevated blood lipids Family history of cardiovascular disease Social History Social History (Updated 11/23/22 @ 22:32 by Heaven Low PA-C) Social History: Surrogate medical decision maker: Nelda Sandeep, niece. Code status: Full code. Smoking status: Former smoker Smoking end date: 09/12/84 Additional smoking assessment comments: Twenty pack-year smoking history. Alcohol intake: never Substance use type: does not use Lack of Transportation: No Lack of Food: Never True Current Housing: I Have Housing Concerned About Future Housing: No Difficulty Paying Gas/Electric Bills: No Difficulty Paying for Meds: No Currently Unemployed: No Education: High School Diploma/GED Difficulty w/ Childcare or Family Care: No Spiritual care concerns: No Meds Home Medications and Allergies Home Medications Medication Instructions Recorded Confirmed Type atorvastatin 20 mg tablet 40 mg PO HS 02/16/22 11/23/22 History blood cho
--- NOTE | 2022-11-23 16:18 | PC.NURSE ---
attempted to call report at this time, floor nurse was busy- told by dehydration unit operator floor nurse will call in a few minutes
--- NOTE | 2022-11-23 17:06 | ADMGEN ---
This patient, Wanda García, was admitted to 3 [facility] Surg Room 304-02. Patient/family oriented to hospital policies and general routines including ID bracelet, bed and alarms, visiting hours, pain management, procedures, bathroom and other care routines, personal items, smoking policy, room service/diet, and visiting hours. Information on how to activate the Rapid Response Team has been discussed. Patient/Family are encouraged to report perceived risks to care and to ask questions if they do not understand what they are told or what they should do.
[2022-11-23 17:12] LABS: Glucose Point of Care 126 mg/dl (65-105)
[2022-11-23] MEDS: SILVERGEL (ELTA) 45 ML 1 APPLIC TOPICAL (18:34)
[2022-11-23 23:02] LABS: Glucose Point of Care 152 mg/dl (65-105)
[2022-11-24] MEDS: SODIUM CHLORIDE 0.9% IV 1,000 ML 100 ML IV CONT
[2022-11-24] MEDS: metroNIDAZOLE 500 MG/ISO 100ML 500 MG/100 ML BAG 100 MG IVPB ×4 (00:01→22:36)
[2022-11-24 05:44] VITALS: BP 145/71; PULSE 107; RESP 14; TEMP 36.4; O2SAT 98
[2022-11-24] MEDS: LEVOTHYROXINE SODIUM 75 MCG TABLET PO (06:04)
[2022-11-24 06:43] LABS: Hematocrit 35.2 % (37.0-47.0); Hemoglobin 11.6 g/dL (12.0-15.0); Mean Corpuscular Hemoglobin 28.6 pg (26-34); Mean Corpuscular Volume 86.9 fl (80-100); Mean Platelet Volume 9.2 fl (7.4-10.4); Platelet Count Result 280 k/mm3 (150-375); Red Blood Count 4.05 M/mm3 (4.2-5.4); Red Cell Distribution Width 14.1 % (11.5-14.5); White Blood Count 10.9 K/mm3 (4.5-10.0)
[2022-11-24 07:01] LABS: Anion Gap 7 mmol/L (8-16); Blood Urea Nitrogen 17 mg/dL (7-17); Calcium 9.4 mg/dL (8.4-10.2); Carbon Dioxide 27 mmol/L (22-30); Chloride 101 mmol/L (98-107); Estimated CRCL calculation 37 ml/min; Estimated Glomerular Filt Rate 43; Glucose 140 mg/dL (65-110); Magnesium 1.7 mg/dL (1.6-2.3); Potassium 4.8 mmol/L (3.4-5.0); Sodium 135 mmol/L (137-145)
[2022-11-24 07:10] LABS: Hemoglobin A1C 7.2 % (<5.7)
[2022-11-24 08:02] LABS: Thyroid Stimulating Hormone Reflex 0.111 uIU/mL (0.465-4.68)
[2022-11-24 08:03] LABS: Glucose Point of Care 151 mg/dl (65-105)
[2022-11-24] MEDS: CHOLECALCIFEROL 1,000 UNITS TABLET 1000 UNITS PO (09:16)
[2022-11-24] MEDS: ASPIRIN 81 MG ENTERIC TABLET PO (09:16)
[2022-11-24] MEDS: GABAPENTIN 300 MG CAPSULE 600 MG PO ×2 (09:16→14:20)
[2022-11-24] MEDS: VITAMIN B COMPLEX CAPSULE 1 CAP PO (09:16)
[2022-11-24] MEDS: dilTIAZem HCL CD 180 MG CAP.ER.24H PO (09:16)
[2022-11-24] MEDS: MAGNESIUM OXIDE 200 MG TABLET PO (09:16)
[2022-11-24] MEDS: MULTIVITAMINS THERAPEUTIC TAB (*BKC) 1 TABLET PO (09:16)
[2022-11-24 09:17] VITALS: PULSE 88
[2022-11-24] MEDS: GLIMEPIRIDE 2 MG TABLET 4 MG PO (09:17)
[2022-11-24] MEDS: METOPROLOL SUCCINATE EXT REL 50 MG TABCR 150 MG PO (09:17)
[2022-11-24] MEDS: INSULIN HUMAN ISOPHAN/REGULAR 70/30 (*BKC) 100 UNITS/ML 20 UNITS SUB-Q (09:33)
[2022-11-24] MEDS: CEFEPIME 2 GM/NS 50 ML 2 GM/50 ML BAG IVPB ×3 (11:07→21:57)
--- NOTE | 2022-11-24 11:22 | PM.IMPN ---
Progress Note: A&P Assessment and Plan (1) Diabetic foot ulcer: Qualifiers: Diabetes mellitus type: type 2 Diabetic foot ulcer location: midfoot Laterality: left Non-pressure ulcer stage: unspecified non-pressure ulcer stage Qualified Code(s): E11.621 - Type 2 diabetes mellitus with foot ulcer; L97.429 - Non-pressure chronic ulcer of left heel and midfoot with unspecified severity Code(s): E11.621 - Type 2 diabetes mellitus with foot ulcer; L97.509 - Non-pressure chronic ulcer of other part of unspecified foot with unspecified severity Status: Acute Assessment and Plan: General surgery consulted and appreciate recommendation. Rachaelrelto is on hold pending possible debridement of wound. 11/24/22 Bedside I&D. Resume Eliquis per surgery recommendations. Continue broad-spectrum antibiotics- Vancomycin, Cefepime, Metronidazole IV. Adjust antibiotics pending cultures Manage blood sugars. (2) Cellulitis of left lower extremity: Code(s): L03.116 - Cellulitis of left lower limb Status: Acute Assessment and Plan: As above. Monitor CBC, CRP, and procalcitonin (3) Peripheral vascular disease: Code(s): I73.9 - Peripheral vascular disease, unspecified Status: Chronic Assessment and Plan: She is scheduled to see a Vascular Surgeon outpatient. (4) Onddh-tb-xfvnlkx kidney injury: Code(s): N17.9 - Acute kidney failure, unspecified; N18.9 - Chronic kidney disease, unspecified Status: Acute Assessment and Plan: BUN 25, creatinine 1.4 (recent labs show 1.0), GFR 36 (recent labs 49) on admission. Patient was recently treated with oral Bactrim and likely contributing. Trend BMP daily Monitor I/O status Improving (5) Type 2 diabetes mellitus with diabetic neuropathy, unspecified: Code(s): E11.40 - Type 2 diabetes mellitus with diabetic neuropathy, unspecified Status: Chronic Assessment and Plan: Chronic, A1c 7.2%, unchanged from June. continue NPH 70/30 20 units in the mornring and 10 units at dinner. Continue glimepiride. Hold metformin d/t HALEY. Continue accu-checks AC/HS with aspart low dose sliding scale and hypoglycemic protocol (6) Essential (primary) hypertension: Code(s): I10 - Essential (primary) hypertension Status: Chronic Assessment and Plan: Chronic, continue antihypertensives. (7) Coronary artery disease: Code(s): I25.10 - Atherosclerotic heart disease of [place] coronary artery without angina pectoris Status: Chronic Assessment and Plan: Chronic, continue statin (8) Hypothyroidism (acquired): Code(s): E03.9 - Hypothyroidism, unspecified Status: Chronic Assessment and Plan: TSH low. Free T4 normal. Likely altered due to acute illness. Continue levothyroxine at home dose. (9) Paroxysmal atrial fibrillation: Code(s): I48.0 - Paroxysmal atrial fibrillation Status: Chronic Assessment and Plan: Continue diltiazem and metoprolol. Resume Xarelto when okay with general surgery Plan CODE STATUS: FULL CODE Disposition: from home. Diet: consistent carb diet Antibiotic: day 1 Time Spent With Patient Time with patient: 25 - 35 minutes Subjective Date/time seen: 11/24/22 11:22 She thinks her right foot and leg is unchanged in appearance. No fevers, chills or rigors. She has neuropathy at baseline, but does have some pain to her right foot. She is still able to ambulate. No diarrhea, abd pain, N/V and appetite is fair. Review of Systems Review of Systems: All systems reviewed & are unremarkable except as noted in HPI and below Exam Narrative: General: Well-developed, nontoxic-appearing female sitting up in bed in no distress. HEENT: Normocephalic. PERRL, EOMI. Sclera anicteric. Oral mucosa moist. Neck: Supple. Respiratory: Lungs are clear to auscultation bilaterally. RR regular and unlabored. Cardio
[2022-11-24 12:18] LABS: Glucose Point of Care 259 mg/dl (65-105)
[2022-11-24 14:00] VITALS: BP 171/89; PULSE 94; RESP 14; TEMP 36.3; O2SAT 100
[2022-11-24 14:25] LABS: Free T4 Free Thyroxine Reflex 1.76 ng/dL (0.78-2.19)
[2022-11-24] MEDS: LIDOCAINE HCL 1% LOCAL INJ 20 ML VIAL 5 ML INFILTRATE (14:57)
--- NOTE | 2022-11-24 15:00 | P.OP_ITS ---
Procedure Note - Detailed Date of Procedure 11/24/22 Pre-op Diagnosis Infected left diabetic foot ulcer Post-op Diagnosis Same Procedure Performed Excisional debridement of skin and subcutaneous tissue of necrotic left diabetic foot ulcer, measuring 1 cm x 3 cm x 1 cm Surgeon ODETTE Isidro Teenage Program Director SARAH Song student Anesthesia Local (1% lidocaine) Indications This is a 77 yo F with IDDM who presented to the ER with an infected left diabetic foot ulcer and left lower extremity cellulitis. We discussed proceeding with incision and drainage and possible excisional debridement to open the ulcer and allow for better packing with wound care and any necessary debridement. Findings Necrotic left diabetic foot ulcer on the plantar aspect of the left foot overlying the 1st MTP joint that extends about 3 cm laterally towards the 2nd metatarsal. Description of Procedure The patient was lying in the supine position in the bed with her head elevated. Her left leg was elevated on a pillow and slightly inverted to allow better visualization of the medial plantar aspect of the foot. Sterile prep was carried out over the wound with chlorhexidine swabs. The area was draped in sterile fashion and local anesthetic with 1% lidocaine was infiltrated directly at the left plantar foot ulcer and extended laterally towards the tunneling and undermining. I used a 15 blade scalpel to extend the opening of the ulcer laterally another 2 cm with now a 3 cm opening. There was no purulent drainage noted but there was necrotic skin near the edges of the open ulcer and extending to the subcutaneous tissue. I used a pickups and scissors to carry out sharp debridement of the necrotic skin and subcutaneous tissue that measured an area of 1 cm x 3 cm x 1 cm. All significant necrotic tissue was debrided. I did not encounter any purulent drainage. The wound was again inspected and digitally probed. I was able to visualize what appeared to be tendon sheath but no obvious bone exposed. No bleeding noted and majority of the subcutaneous tissue appeared dusky with some areas of slough. I then applied a sterile gauze dressing and tape. The patient tolerated the procedure well. Will switch her wound care to Santyl to help with enzymatic debridement and have the nurse pack this area. Estimated Blood Loss 0 Urine Output 1,400 Drains No Packing No Pathology None sent Complications No immediate complications Condition Stable Disposition No change [facility] Billing Surgery - Charge Forward: Surgery Billing
[2022-11-24] MEDS: COLLAGENASE OINT 30 GM TUBE 1 APPLIC TOPICAL (15:57)
[2022-11-24 15:59] LABS: Total Triiodothyronine (T3) 1.01 NG/ML (0.97-1.69)
[2022-11-24 16:38] LABS: Glucose Point of Care 133 mg/dl (65-105)
[2022-11-24] MEDS: INSULIN HUMAN ISOPHAN/REGULAR 70/30 (*BKC) 100 UNITS/ML 10 UNITS SUB-Q (18:00)
[2022-11-24 21:18] LABS: Glucose Point of Care 101 mg/dl (65-105)
[2022-11-24 21:54] VITALS: BP 155/85; PULSE 88; RESP 16; TEMP 36.5; O2SAT 97
[2022-11-24] MEDS: ATORVASTATIN 40 MG TABLET PO (21:56)
[2022-11-24] MEDS: lisinopriL 20 MG TABLET 40 MG PO ×2 (21:56)
[2022-11-24] MEDS: GABAPENTIN 300 MG CAPSULE PO ×2 (21:56)
[2022-11-24] MEDS: HYDROcodone/acetaminophen (*CRX) 5-325 MG TABLET 1 TAB PO (21:57)
[2022-11-25 04:24] VITALS: BP 135/69; PULSE 101; RESP 16; TEMP 36.4; O2SAT 100
[2022-11-25] MEDS: LEVOTHYROXINE SODIUM 75 MCG TABLET PO (05:53)
[2022-11-25] MEDS: metroNIDAZOLE 500 MG/ISO 100ML 500 MG/100 ML BAG 100 MG IVPB ×3 (05:54→21:12)
[2022-11-25 06:49] LABS: Basophils Absolute Auto 0.1 K/mm3 (0.0-0.1); Basophils Percent Auto 0.5 % (0.2-1.2); Eosinophils Absolute Auto 0.1 K/mm3 (0-0.3); Eosinophils Percent Auto 1.2 % (0-4.4); Hematocrit 39.5 % (37.0-47.0); Hemoglobin 12.8 g/dL (12.0-15.0); Immature Granulocyte Absolute 0.05 K/mm3 (0.00-0.031); Immature Granulocyte Percent A 0.5 % (0-0.5); Lymphocytes Absolute Auto 0.59 K/mm3 (0.9-3.2); Mean Corpuscular HGB Conc 32.4 g/dl (32-36); Mean Corpuscular Volume 89.6 fl (80-100); Mean Platelet Volume 8.7 fl (7.4-10.4); Monocytes Absolute Auto 1.2 K/mm3 (0.1-0.6); Monocytes Percent Auto 11.7 % (2.6-8.5); Neutrophils Absolute Auto 7.9 K/mm3 (1.3-6.7); Neutrophils Percent Auto 80.1 % (45.5-73.1); Platelet Count Result 297 k/mm3 (150-375); Red Blood Count 4.41 M/mm3 (4.2-5.4); White Blood Count 9.9 K/mm3 (4.5-10.0)
[2022-11-25 07:12] LABS: Anion Gap 6 mmol/L (8-16); Blood Urea Nitrogen 16 mg/dL (7-17); Calcium 9.5 mg/dL (8.4-10.2); Carbon Dioxide 28 mmol/L (22-30); Chloride 102 mmol/L (98-107); Estimated CRCL calculation 40 ml/min; Estimated Glomerular Filt Rate 48; Glucose 128 mg/dL (65-110); Potassium 4.8 mmol/L (3.4-5.0); Sodium 136 mmol/L (137-145)
[2022-11-25 08:29] LABS: Glucose Point of Care 181 mg/dl (65-105)
[2022-11-25] MEDS: ASPIRIN 81 MG ENTERIC TABLET PO (09:40)
[2022-11-25] MEDS: dilTIAZem HCL CD 180 MG CAP.ER.24H PO (09:40)
[2022-11-25 09:41] VITALS: PULSE 82
[2022-11-25] MEDS: CHOLECALCIFEROL 1,000 UNITS TABLET 1000 UNITS PO (09:41)
[2022-11-25] MEDS: VITAMIN B COMPLEX CAPSULE 1 CAP PO (09:41)
[2022-11-25] MEDS: MAGNESIUM OXIDE 200 MG TABLET PO (09:41)
[2022-11-25] MEDS: GABAPENTIN 300 MG CAPSULE 600 MG PO ×2 (09:41→13:10)
[2022-11-25] MEDS: METOPROLOL SUCCINATE EXT REL 50 MG TABCR 150 MG PO (09:41)
[2022-11-25] MEDS: GLIMEPIRIDE 2 MG TABLET 4 MG PO (09:41)
[2022-11-25] MEDS: MULTIVITAMINS THERAPEUTIC TAB (*BKC) 1 TABLET PO (09:41)
[2022-11-25] MEDS: INSULIN HUMAN ISOPHAN/REGULAR 70/30 (*BKC) 100 UNITS/ML 20 UNITS SUB-Q (09:42)
--- NOTE | 2022-11-25 10:06 | P.CDI_ITS ---
CDI Query Clarified Diagnosis Clarified Diagnosis: Please clarify if there is a cause and effect relationship between Cellulitis and Diabetes Mellitus. * Cellulitis is related to Diabetes Mellitus. * Cellulitis is not related to Diabetes Mellitus. * Unknown if Cellulitis is related to Diabetes Mellitus. l
--- NOTE | 2022-11-25 10:06 | WPDCDIQUERY2 ---
CDI Query Clarified Diagnosis Clarified Diagnosis: Please clarify if there is a cause and effect relationship between Cellulitis and Diabetes Mellitus. Cellulitis is related to Diabetes Mellitus. Cellulitis is not related to Diabetes Mellitus. Unknown if Cellulitis is related to Diabetes Mellitus. l
[2022-11-25] MEDS: CEFEPIME 2 GM/NS 50 ML 2 GM/50 ML BAG IVPB ×2 (10:25→22:24)
[2022-11-25 11:35] LABS: Glucose Point of Care 276 mg/dl (65-105)
[2022-11-25] MEDS: COLLAGENASE OINT 30 GM TUBE 1 APPLIC TOPICAL ×2 (12:46→22:24)
[2022-11-25] MEDS: INSULIN ASPART (*BKC) 100 UNITS/ML SUB-Q ×2 (13:09→18:15)
[2022-11-25 15:15] VITALS: BP 151/74; PULSE 88; RESP 16; TEMP 36.2; O2SAT 98
--- NOTE | 2022-11-25 16:17 | P.PNIM_ITS ---
Progress Note: A&P Assessment and Plan (1) Diabetic foot ulcer: Qualifiers: Diabetes mellitus type: type 2 Diabetic foot ulcer location: midfoot Laterality: left Non-pressure ulcer stage: unspecified non-pressure ulcer stage Qualified Code(s): E11.621 - Type 2 diabetes mellitus with foot ulcer; L97.429 - Non-pressure chronic ulcer of left heel and midfoot with unspecified severity Code(s): E11.621 - Type 2 diabetes mellitus with foot ulcer; L97.509 - Non-pressure chronic ulcer of other part of unspecified foot with unspecified severity Status: Acute Assessment and Plan: patient believes ulcer started from tear in the skin from her callouses. * General surgery consulted and appreciate recommendation. * Xarelto is on hold pending possible debridement of wound. 11/24/22 Bedside I&D. * Resume Eliquis per surgery recommendations. * Continue broad-spectrum antibiotics- Vancomycin, Cefepime, Metronidazole IV. * Adjust antibiotics pending cultures * Manage blood sugars. (2) Cellulitis of left lower extremity: Code(s): L03.116 - Cellulitis of left lower limb Status: Acute Assessment and Plan: As above. Monitor CBC, CRP 11/25/2022 CBC stable, repeat CRP in the morning was elevated admission Cellulitis likely from diabetic foot ulcer related to diabetes. (3) Peripheral vascular disease: Code(s): I73.9 - Peripheral vascular disease, unspecified Status: Chronic Assessment and Plan: She is scheduled to see a Vascular Surgeon outpatient. (4) Yprkf-ju-zbgnhbr kidney injury: Code(s): N17.9 - Acute kidney failure, unspecified; N18.9 - Chronic kidney disease, unspecified Status: Acute Assessment and Plan: BUN 25, creatinine 1.4 (recent labs show 1.0), GFR 36 (recent labs 49) on admission. Patient was recently treated with oral Bactrim and likely contributing. * Trend BMP daily * Monitor I/O status * Improving (5) Type 2 diabetes mellitus with diabetic neuropathy, unspecified: Code(s): E11.40 - Type 2 diabetes mellitus with diabetic neuropathy, unspecified Status: Chronic Assessment and Plan: * Chronic, A1c 7.2%, unchanged from June. * continue NPH 70/30 20 units in the mornring and 10 units at dinner. * Continue glimepiride. * Hold metformin d/t HALEY. * Continue accu-checks AC/HS with aspart low dose sliding scale and hypoglycemic protocol (6) Essential (primary) hypertension: Code(s): I10 - Essential (primary) hypertension Status: Chronic Assessment and Plan: Chronic, continue antihypertensives. (7) Coronary artery disease: Code(s): I25.10 - Atherosclerotic heart disease of [place] coronary artery without angina pectoris Status: Chronic Assessment and Plan: Chronic, continue statin (8) Hypothyroidism (acquired): Code(s): E03.9 - Hypothyroidism, unspecified Status: Chronic Assessment and Plan: * TSH low. Free T4 normal. * Likely altered due to acute illness. * Continue levothyroxine at home dose. (9) Paroxysmal atrial fibrillation: Code(s): I48.0 - Paroxysmal atrial fibrillation Status: Chronic Assessment and Plan: * Continue diltiazem and metoprolol. * Resume Xarelto when okay with general surgery Plan CODE STATUS: FULL CODE Disposition: from home. Diet: consistent carb diet Antibiotic: day 1
--- NOTE | 2022-11-25 16:17 | PM.IMPN ---
Progress Note: A&P Assessment and Plan (1) Diabetic foot ulcer: Qualifiers: Diabetes mellitus type: type 2 Diabetic foot ulcer location: midfoot Laterality: left Non-pressure ulcer stage: unspecified non-pressure ulcer stage Qualified Code(s): E11.621 - Type 2 diabetes mellitus with foot ulcer; L97.429 - Non-pressure chronic ulcer of left heel and midfoot with unspecified severity Code(s): E11.621 - Type 2 diabetes mellitus with foot ulcer; L97.509 - Non-pressure chronic ulcer of other part of unspecified foot with unspecified severity Status: Acute Assessment and Plan: patient believes ulcer started from tear in the skin from her callouses. General surgery consulted and appreciate recommendation. Xarelto is on hold pending possible debridement of wound. 11/24/22 Bedside I&D. Resume Eliquis per surgery recommendations. Continue broad-spectrum antibiotics- Vancomycin, Cefepime, Metronidazole IV. Adjust antibiotics pending cultures Manage blood sugars. (2) Cellulitis of left lower extremity: Code(s): L03.116 - Cellulitis of left lower limb Status: Acute Assessment and Plan: As above. Monitor CBC, CRP 11/25/2022 CBC stable, repeat CRP in the morning was elevated admission Cellulitis likely from diabetic foot ulcer related to diabetes. (3) Peripheral vascular disease: Code(s): I73.9 - Peripheral vascular disease, unspecified Status: Chronic Assessment and Plan: She is scheduled to see a Vascular Surgeon outpatient. (4) Rmepw-fu-uxhjili kidney injury: Code(s): N17.9 - Acute kidney failure, unspecified; N18.9 - Chronic kidney disease, unspecified Status: Acute Assessment and Plan: BUN 25, creatinine 1.4 (recent labs show 1.0), GFR 36 (recent labs 49) on admission. Patient was recently treated with oral Bactrim and likely contributing. Trend BMP daily Monitor I/O status Improving (5) Type 2 diabetes mellitus with diabetic neuropathy, unspecified: Code(s): E11.40 - Type 2 diabetes mellitus with diabetic neuropathy, unspecified Status: Chronic Assessment and Plan: Chronic, A1c 7.2%, unchanged from June. continue NPH 70/30 20 units in the mornring and 10 units at dinner. Continue glimepiride. Hold metformin d/t HALEY. Continue accu-checks AC/HS with aspart low dose sliding scale and hypoglycemic protocol (6) Essential (primary) hypertension: Code(s): I10 - Essential (primary) hypertension Status: Chronic Assessment and Plan: Chronic, continue antihypertensives. (7) Coronary artery disease: Code(s): I25.10 - Atherosclerotic heart disease of [place] coronary artery without angina pectoris Status: Chronic Assessment and Plan: Chronic, continue statin (8) Hypothyroidism (acquired): Code(s): E03.9 - Hypothyroidism, unspecified Status: Chronic Assessment and Plan: TSH low. Free T4 normal. Likely altered due to acute illness. Continue levothyroxine at home dose. (9) Paroxysmal atrial fibrillation: Code(s): I48.0 - Paroxysmal atrial fibrillation Status: Chronic Assessment and Plan: Continue diltiazem and metoprolol. Resume Xarelto when okay with general surgery Plan CODE STATUS: FULL CODE Disposition: from home. Diet: consistent carb diet Antibiotic: day 1 Subjective Date/time seen: 11/25/22 16:17 Interval history: Patient doing well today in bed, minimal pain present. Denies fever, nausea, vomiting, chest pain, shortness a breath. Review of Systems Review of Systems: All systems reviewed & are unremarkable except as noted in HPI and below Exam Narrative: GENERAL: Comfortable, no acute distress HENMT: moist mucous membranes EYES: EOM intact b/l NECK: no lymphadenopathy RESPIRATORY: clear to auscultation CARDIO: rate controlle
--- NOTE | 2022-11-25 16:46 | PM.PNGS ---
Progress Note: A&P Assessment and Plan (1) Diabetic foot ulcer: Qualifiers: Diabetes mellitus type: type 2 Diabetic foot ulcer location: midfoot Laterality: left Non-pressure ulcer stage: unspecified non-pressure ulcer stage Qualified Code(s): E11.621 - Type 2 diabetes mellitus with foot ulcer; L97.429 - Non-pressure chronic ulcer of left heel and midfoot with unspecified severity Code(s): E11.621 - Type 2 diabetes mellitus with foot ulcer; L97.509 - Non-pressure chronic ulcer of other part of unspecified foot with unspecified severity Status: Acute Assessment and Plan: S/p excisional debridement on 11/24. Still some dusky tissue with thapa slough in the wound bed. Continue with Santyl dressing changes for enzymatic debridement. Overall, cellulitis appears to be improving. Continue IV antibiotics. Recommended heel-touch weight bearing for activity and she has a post-op shoe to use with ambulation. (2) Cellulitis of left lower extremity: Code(s): L03.116 - Cellulitis of left lower limb Status: Acute Assessment and Plan: Improving. Continue IV antibiotics. (3) Peripheral vascular disease: Code(s): I73.9 - Peripheral vascular disease, unspecified Status: Chronic Assessment and Plan: Scheduled to see vascular surgery in a few weeks. (4) Paroxysmal atrial fibrillation: Code(s): I48.0 - Paroxysmal atrial fibrillation Status: Chronic (5) Anticoagulant long-term use: Code(s): Z79.01 - jail (current) use of anticoagulants Status: Acute (6) Type 2 diabetes mellitus with diabetic neuropathy, unspecified: Code(s): E11.40 - Type 2 diabetes mellitus with diabetic neuropathy, unspecified Status: Chronic Plan I have discussed the patient's case and plan of care with Dr. Prado. Subjective Subjective Date/Time Seen: 11/25/22 12:46 Patient reports: no new complaints, feels better and afebrile Interval history: Patient doing well today. Still has some right foot pain only at night. She did not feel the Berger helped with this pain. Noticed the redness in her right lower extremity has improved. No other complaints at this time. Review of Systems Review of Systems: ROS unchanged Exam Const: General: comfortable and no acute distress Orientation/consciousness: patient oriented x3 Skin: Other: Right lower leg and foot with much improvement in the erythema receding down to primarily the right foot. Dressing removed. Right plantar foot ulcer with packing removed and still with dusky wound bed and some thapa slough, no purulent drainage. Extrem: General: no edema Objective Data Vital Signs Vital Signs: Vital Signs - 24 hr 11/24/22 21:54 11/24/22 20:00 11/25/22 04:24 Temperature 97.7 F 97.6 F Pulse Rate 88 101 H Respiratory Rate 16 16 Blood Pressure 155/85 H 135/69 Pulse Oximetry 97 100 Oxygen Delivery Room Air 11/25/22 09:41 11/25/22 09:45 11/25/22 15:15 Temperature 97.2 F L Pulse Rate 82 88 Respiratory Rate 16 Blood Pressure 151/74 H Pulse Oximetry 98 Oxygen Delivery Room Air Intake/Output Intake/Output: Intake & Output 11/22/22 11/23/22 11/24/22 11/25/22 23:59 23:59 23:59 23:59 Intake Total 890 4870 570 Output Total 2800 Balance 890 2070 570 Meds/Results Medications: Active Medications Generic Name Dose Route Start Last Admin Trade Name Freq PRN Reason Stop Dose Admin Acetaminophen 650 mg 11/24/22 15:16 Acetaminophen 325 Mg Tablet PO Q4H PRN Mild Pain (1-3) or Fever Hydrocodone Bitart/Acetaminophen 1 tab 11/24/22 15:16 11/24/22 21:57 Hydrocodone/Acetaminophen (*Crx) 5-325 Mg Tablet PO 1 tab Q6H PRN Administration Pain Rated 4-6 Alprazolam 0.5 mg 11/23/22 23:06 Alprazolam (*Crx) 0.5 Mg Tablet PO BID PRN anxiety Aspirin 81 mg 11/24/22 09:00 11/25/22 09:40 Aspirin 81 Mg Enteric Tablet PO 81 mg [facility]
[2022-11-25 16:58] LABS: Glucose Point of Care 240 mg/dl (65-105)
[2022-11-25] MEDS: INSULIN HUMAN ISOPHAN/REGULAR 70/30 (*BKC) 100 UNITS/ML 10 UNITS SUB-Q (18:18)
[2022-11-25] MEDS: lisinopriL 20 MG TABLET 40 MG PO (21:07)
[2022-11-25] MEDS: GABAPENTIN 300 MG CAPSULE PO (21:07)
[2022-11-25] MEDS: ATORVASTATIN 40 MG TABLET PO (21:07)
[2022-11-25] MEDS: traMADol HCL (*CRX) 50 MG TABLET PO (21:10)
[2022-11-25 21:52] VITALS: BP 140/118; PULSE 95; RESP 14; TEMP 36.2; O2SAT 99
[2022-11-26] MEDS: metroNIDAZOLE 500 MG/ISO 100ML 500 MG/100 ML BAG 100 MG IVPB ×3 (05:15→21:12)
[2022-11-26] MEDS: traMADol HCL (*CRX) 50 MG TABLET PO ×2 (05:15→22:16)
[2022-11-26] MEDS: LEVOTHYROXINE SODIUM 75 MCG TABLET PO (05:15)
[2022-11-26 06:00] VITALS: BP 142/77; PULSE 100; RESP 14; TEMP 36.2; O2SAT 98
[2022-11-26 07:23] LABS: Basophils Percent Auto 0.4 % (0.2-1.2); Eosinophils Absolute Auto 0.1 K/mm3 (0-0.3); Eosinophils Percent Auto 1.4 % (0-4.4); Hematocrit 38.7 % (37.0-47.0); Hemoglobin 12.7 g/dL (12.0-15.0); Immature Granulocyte Absolute 0.03 K/mm3 (0.00-0.031); Immature Granulocyte Percent A 0.3 % (0-0.5); Lymphocytes Absolute Auto 0.63 K/mm3 (0.9-3.2); Lymphocytes Percent Auto 6.8 % (18.3-44.2); Mean Corpuscular HGB Conc 32.8 g/dl (32-36); Mean Corpuscular Hemoglobin 29.3 pg (26-34); Mean Corpuscular Volume 89.2 fl (80-100); Mean Platelet Volume 9.2 fl (7.4-10.4); Monocytes Absolute Auto 1.1 K/mm3 (0.1-0.6); Monocytes Percent Auto 11.6 % (2.6-8.5); Neutrophils Absolute Auto 7.4 K/mm3 (1.3-6.7); Neutrophils Percent Auto 79.5 % (45.5-73.1); Platelet Count Result 331 k/mm3 (150-375); Red Blood Count 4.34 M/mm3 (4.2-5.4); Red Cell Distribution Width 13.7 % (11.5-14.5); White Blood Count 9.3 K/mm3 (4.5-10.0)
[2022-11-26 07:41] LABS: Alanine Aminotransferase 77 U/L (6-35); Albumin Level 3.6 g/dL (3.5-5.1); Alkaline Phosphatase 155 U/L (38-126); Anion Gap 8 mmol/L (8-16); Aspartate Amino Transferase 50 U/L (14-36); Bilirubin,Total 0.8 mg/dL (0.2-1.3); Blood Urea Nitrogen 17 mg/dL (7-17); CRP 7.8 mg/dL (<1.0); Calcium 9.3 mg/dL (8.4-10.2); Carbon Dioxide 26 mmol/L (22-30); Chloride 103 mmol/L (98-107); Estimated CRCL calculation 44 ml/min; Estimated Glomerular Filt Rate 54; Glucose 126 mg/dL (65-110); Potassium 4.1 mmol/L (3.4-5.0); Sodium 137 mmol/L (137-145)
[2022-11-26 08:57] LABS: Glucose Point of Care 139 mg/dl (65-105)
[2022-11-26] MEDS: VITAMIN B COMPLEX CAPSULE 1 CAP PO (09:23)
[2022-11-26] MEDS: ASPIRIN 81 MG ENTERIC TABLET PO (09:23)
[2022-11-26] MEDS: INSULIN HUMAN ISOPHAN/REGULAR 70/30 (*BKC) 100 UNITS/ML 20 UNITS SUB-Q (09:23)
[2022-11-26] MEDS: GABAPENTIN 300 MG CAPSULE 600 MG PO ×2 (09:23→13:07)
[2022-11-26 09:24] VITALS: PULSE 84
[2022-11-26] MEDS: dilTIAZem HCL CD 180 MG CAP.ER.24H PO (09:24)
[2022-11-26] MEDS: GLIMEPIRIDE 2 MG TABLET 4 MG PO (09:24)
[2022-11-26] MEDS: MAGNESIUM OXIDE 200 MG TABLET PO (09:24)
[2022-11-26] MEDS: CHOLECALCIFEROL 1,000 UNITS TABLET 1000 UNITS PO (09:24)
[2022-11-26] MEDS: METOPROLOL SUCCINATE EXT REL 50 MG TABCR 150 MG PO (09:24)
[2022-11-26] MEDS: MULTIVITAMINS THERAPEUTIC TAB (*BKC) 1 TABLET PO (09:24)
[2022-11-26] MEDS: CEFEPIME 2 GM/NS 50 ML 2 GM/50 ML BAG IVPB ×2 (11:19→22:16)
[2022-11-26 11:54] LABS: Glucose Point of Care 207 mg/dl (65-105)
[2022-11-26] MEDS: INSULIN ASPART (*BKC) 100 UNITS/ML SUB-Q ×2 (13:08→17:42)
[2022-11-26 14:00] VITALS: BP 140/70; PULSE 93; RESP 16; TEMP 36.1; O2SAT 99
[2022-11-26 14:36] LABS: Vancomycin Trough 8.2 ug/mL (10.0-20.0)
[2022-11-26] MEDS: COLLAGENASE OINT 30 GM TUBE 1 APPLIC TOPICAL (15:17)
--- NOTE | 2022-11-26 15:22 | P.PNIM_ITS ---
Progress Note: A&P Assessment and Plan (1) Diabetic foot ulcer: Qualifiers: Diabetes mellitus type: type 2 Diabetic foot ulcer location: midfoot Laterality: left Non-pressure ulcer stage: unspecified non-pressure ulcer stage Qualified Code(s): E11.621 - Type 2 diabetes mellitus with foot ulcer; L97.429 - Non-pressure chronic ulcer of left heel and midfoot with unspecified severity Code(s): E11.621 - Type 2 diabetes mellitus with foot ulcer; L97.509 - Non-pressure chronic ulcer of other part of unspecified foot with unspecified severity Status: Acute Assessment and Plan: patient believes ulcer started from tear in the skin from her callouses. * General surgery consulted and appreciate recommendation. * Rachaelnidiabert is on hold pending possible debridement of wound. 11/24/22 Bedside I&D. * Resume Eliquis per surgery recommendations. * Continue broad-spectrum antibiotics - Vancomycin, Cefepime, Metronidazole IV. * Wound culture result of growth of skin kristyn * Blood cultures no growth to date * Manage blood sugars. * Waiting surgery recommendations for discharge. (2) Cellulitis of left lower extremity: Code(s): L03.116 - Cellulitis of left lower limb Status: Acute Assessment and Plan: As above. Monitor CBC, CRP 11/25/2022 CBC stable, repeat CRP in the morning was elevated admission Cellulitis likely from diabetic foot ulcer related to diabetes. (3) Peripheral vascular disease: Code(s): I73.9 - Peripheral vascular disease, unspecified Status: Chronic Assessment and Plan: She is scheduled to see a Vascular Surgeon outpatient. (4) Wgvnh-ua-mqbfnot kidney injury: Code(s): N17.9 - Acute kidney failure, unspecified; N18.9 - Chronic kidney disease, unspecified Status: Acute Assessment and Plan: BUN 25, creatinine 1.4 (recent labs show 1.0), GFR 36 (recent labs 49) on admission. Patient was recently treated with oral Bactrim and likely contributing. * Trend BMP daily * Monitor I/O status * Improving (5) Type 2 diabetes mellitus with diabetic neuropathy, unspecified: Code(s): E11.40 - Type 2 diabetes mellitus with diabetic neuropathy, unspecified Status: Chronic Assessment and Plan: * Chronic, A1c 7.2%, unchanged from June. * continue NPH 70/30 20 units in the mornring and 10 units at dinner. * Continue glimepiride. * Hold metformin d/t HALEY. * Continue accu-checks AC/HS with aspart low dose sliding scale and hypoglycemic protocol (6) Essential (primary) hypertension: Code(s): I10 - Essential (primary) hypertension Status: Chronic Assessment and Plan: Chronic, continue antihypertensives. (7) Coronary artery disease: Code(s): I25.10 - Atherosclerotic heart disease of [place] coronary artery without angina pectoris Status: Chronic Assessment and Plan: Chronic, continue statin (8) Hypothyroidism (acquired): Code(s): E03.9 - Hypothyroidism, unspecified Status: Chronic Assessment and Plan: * TSH low. Free T4 normal. * Likely altered due to acute illness. * Continue levothyroxine at home dose. (9) Paroxysmal atrial fibrillation: Code(s): I48.0 - Paroxysmal atrial fibrillation Status: Chronic Assessment and Plan: * Continue diltiazem and metoprolol. * Resume Xarelto when okay with general surge
--- NOTE | 2022-11-26 15:22 | PM.IMPN ---
Progress Note: A&P Assessment and Plan (1) Diabetic foot ulcer: Qualifiers: Diabetes mellitus type: type 2 Diabetic foot ulcer location: midfoot Laterality: left Non-pressure ulcer stage: unspecified non-pressure ulcer stage Qualified Code(s): E11.621 - Type 2 diabetes mellitus with foot ulcer; L97.429 - Non-pressure chronic ulcer of left heel and midfoot with unspecified severity Code(s): E11.621 - Type 2 diabetes mellitus with foot ulcer; L97.509 - Non-pressure chronic ulcer of other part of unspecified foot with unspecified severity Status: Acute Assessment and Plan: patient believes ulcer started from tear in the skin from her callouses. General surgery consulted and appreciate recommendation. Xarelto is on hold pending possible debridement of wound. 11/24/22 Bedside I&D. Resume Eliquis per surgery recommendations. Continue broad-spectrum antibiotics - Vancomycin, Cefepime, Metronidazole IV. Wound culture result of growth of skin kristyn Blood cultures no growth to date Manage blood sugars. Waiting surgery recommendations for discharge. (2) Cellulitis of left lower extremity: Code(s): L03.116 - Cellulitis of left lower limb Status: Acute Assessment and Plan: As above. Monitor CBC, CRP 11/25/2022 CBC stable, repeat CRP in the morning was elevated admission Cellulitis likely from diabetic foot ulcer related to diabetes. (3) Peripheral vascular disease: Code(s): I73.9 - Peripheral vascular disease, unspecified Status: Chronic Assessment and Plan: She is scheduled to see a Vascular Surgeon outpatient. (4) Squpg-fq-mjhlemb kidney injury: Code(s): N17.9 - Acute kidney failure, unspecified; N18.9 - Chronic kidney disease, unspecified Status: Acute Assessment and Plan: BUN 25, creatinine 1.4 (recent labs show 1.0), GFR 36 (recent labs 49) on admission. Patient was recently treated with oral Bactrim and likely contributing. Trend BMP daily Monitor I/O status Improving (5) Type 2 diabetes mellitus with diabetic neuropathy, unspecified: Code(s): E11.40 - Type 2 diabetes mellitus with diabetic neuropathy, unspecified Status: Chronic Assessment and Plan: Chronic, A1c 7.2%, unchanged from June. continue NPH 70/30 20 units in the mornring and 10 units at dinner. Continue glimepiride. Hold metformin d/t HALEY. Continue accu-checks AC/HS with aspart low dose sliding scale and hypoglycemic protocol (6) Essential (primary) hypertension: Code(s): I10 - Essential (primary) hypertension Status: Chronic Assessment and Plan: Chronic, continue antihypertensives. (7) Coronary artery disease: Code(s): I25.10 - Atherosclerotic heart disease of [place] coronary artery without angina pectoris Status: Chronic Assessment and Plan: Chronic, continue statin (8) Hypothyroidism (acquired): Code(s): E03.9 - Hypothyroidism, unspecified Status: Chronic Assessment and Plan: TSH low. Free T4 normal. Likely altered due to acute illness. Continue levothyroxine at home dose. (9) Paroxysmal atrial fibrillation: Code(s): I48.0 - Paroxysmal atrial fibrillation Status: Chronic Assessment and Plan: Continue diltiazem and metoprolol. Resume Xarelto when okay with general surgery Plan CODE STATUS: FULL CODE Disposition: from home. Diet: consistent carb diet Antibiotic: day 1 Subjective Date/time seen: 11/26/22 15:22 Interval history: Patient sitting up in bed doing well. Patient has minimal pain with ambulation. She denies fever, body aches, chills, nausea, vomiting, chest pain, shortness a breath and diarrhea. Review of Systems Review of Systems: All systems reviewed & are unremarkable except as noted in HPI and below Exam Narrative:
[2022-11-26 17:06] LABS: Glucose Point of Care 219 mg/dl (65-105)
[2022-11-26] MEDS: INSULIN HUMAN ISOPHAN/REGULAR 70/30 (*BKC) 100 UNITS/ML 10 UNITS SUB-Q (17:41)
[2022-11-26 21:02] LABS: Glucose Point of Care 206 mg/dl (65-105)
[2022-11-26 21:12] VITALS: TEMP 37.3
[2022-11-26] MEDS: ACETAMINOPHEN 325 MG TABLET 650 MG PO (21:12)
[2022-11-26] MEDS: lisinopriL 20 MG TABLET 40 MG PO (21:14)
[2022-11-26] MEDS: ATORVASTATIN 40 MG TABLET PO (21:14)
[2022-11-26] MEDS: GABAPENTIN 300 MG CAPSULE PO (21:14)
[2022-11-26 22:00] VITALS: BP 134/70; PULSE 88; RESP 2; TEMP 37.3; O2SAT 98
[2022-11-27] MEDS: traMADol HCL (*CRX) 50 MG TABLET PO (04:48)
[2022-11-27 06:00] VITALS: BP 138/67; PULSE 91; RESP 20; TEMP 35.8; O2SAT 98
[2022-11-27] MEDS: metroNIDAZOLE 500 MG/ISO 100ML 500 MG/100 ML BAG 100 MG IVPB (06:35)
[2022-11-27] MEDS: LEVOTHYROXINE SODIUM 75 MCG TABLET PO (06:36)
[2022-11-27 06:39] LABS: Basophils Percent Auto 0.4 % (0.2-1.2); Eosinophils Absolute Auto 0.2 K/mm3 (0-0.3); Eosinophils Percent Auto 2.3 % (0-4.4); Hematocrit 38.1 % (37.0-47.0); Hemoglobin 12.3 g/dL (12.0-15.0); Immature Granulocyte Absolute 0.05 K/mm3 (0.00-0.031); Immature Granulocyte Percent A 0.5 % (0-0.5); Lymphocytes Absolute Auto 0.61 K/mm3 (0.9-3.2); Lymphocytes Percent Auto 6.3 % (18.3-44.2); Mean Corpuscular HGB Conc 32.3 g/dl (32-36); Mean Corpuscular Hemoglobin 28.3 pg (26-34); Mean Corpuscular Volume 87.8 fl (80-100); Monocytes Absolute Auto 1.1 K/mm3 (0.1-0.6); Monocytes Percent Auto 11.7 % (2.6-8.5); Neutrophils Absolute Auto 7.6 K/mm3 (1.3-6.7); Neutrophils Percent Auto 78.8 % (45.5-73.1); Platelet Count Result 340 k/mm3 (150-375); Red Blood Count 4.34 M/mm3 (4.2-5.4); Red Cell Distribution Width 13.3 % (11.5-14.5); White Blood Count 9.7 K/mm3 (4.5-10.0)
[2022-11-27 06:51] LABS: Alanine Aminotransferase 63 U/L (6-35); Albumin Level 3.6 g/dL (3.5-5.1); Alkaline Phosphatase 138 U/L (38-126); Anion Gap 6 mmol/L (8-16); Aspartate Amino Transferase 38 U/L (14-36); Bilirubin,Total 0.6 mg/dL (0.2-1.3); Blood Urea Nitrogen 17 mg/dL (7-17); Carbon Dioxide 25 mmol/L (22-30); Chloride 104 mmol/L (98-107); Estimated CRCL calculation 53 ml/min; Estimated Glomerular Filt Rate > 60; Glucose 137 mg/dL (65-110); Potassium 4.1 mmol/L (3.4-5.0); Sodium 135 mmol/L (137-145)
[2022-11-27 08:43] LABS: Glucose Point of Care 153 mg/dl (65-105)
[2022-11-27 09:17] VITALS: PULSE 90
[2022-11-27] MEDS: METOPROLOL SUCCINATE EXT REL 50 MG TABCR 150 MG PO (09:17)
[2022-11-27] MEDS: MAGNESIUM OXIDE 200 MG TABLET PO (09:18)
[2022-11-27] MEDS: VITAMIN B COMPLEX CAPSULE 1 CAP PO (09:18)
[2022-11-27] MEDS: GLIMEPIRIDE 2 MG TABLET 4 MG PO (09:18)
[2022-11-27] MEDS: dilTIAZem HCL CD 180 MG CAP.ER.24H PO (09:19)
[2022-11-27] MEDS: ASPIRIN 81 MG ENTERIC TABLET PO (09:19)
[2022-11-27] MEDS: CHOLECALCIFEROL 1,000 UNITS TABLET 1000 UNITS PO (09:19)
[2022-11-27] MEDS: COLLAGENASE OINT 30 GM TUBE 1 APPLIC TOPICAL (09:19)
[2022-11-27] MEDS: MULTIVITAMINS THERAPEUTIC TAB (*BKC) 1 TABLET PO (09:19)
[2022-11-27] MEDS: INSULIN HUMAN ISOPHAN/REGULAR 70/30 (*BKC) 100 UNITS/ML 20 UNITS SUB-Q (09:23)
[2022-11-27] MEDS: GABAPENTIN 300 MG CAPSULE 600 MG PO ×2 (09:25→12:41)
[2022-11-27 11:43] LABS: Glucose Point of Care 271 mg/dl (65-105)
[2022-11-27 12:37] LABS: EDCOVIDSCREEN Negative (Negative)
[2022-11-27] MEDS: INSULIN ASPART (*BKC) 100 UNITS/ML SUB-Q (12:41)
--- NOTE | 2022-11-27 13:29 | PM.TDS ---
Transfer Discharge Sum: Prov Provider Date of admission: 11/23/22 15:24 Primary care physician: Sadia Cloud MD Admitting clinician: Karmen Reed DO Attending physician on admission: Karmen Reed Consults: 11/23/22 Consult to Physician Routine Comment: Consulting Provider: Fede Chavarria Reason for consultation: diabetic foot infection Has provider been notified: Yes Wound/ET Consult Routine Reason for Consult:: diabetic foot ulcer Attending physician on discharge: Zach Vo Discharging clinician: Shi Trejo Anticipated date of transfer: 11/27/22 Receiving physician/facility: [facility]. Accepting hospitalist Dr. Soni. Vascular surgeon Dr. Monge. DS: Admitting Diagnosis Discharge Date 11/27/22 Admitting Diagnosis left foot infection DS: Discharge Diagnosis Discharge Diagnosis (1) Diabetic foot ulcer: Qualifiers: Diabetes mellitus type: type 2 Diabetic foot ulcer location: midfoot Laterality: left Non-pressure ulcer stage: unspecified non-pressure ulcer stage Qualified Code(s): E11.621 - Type 2 diabetes mellitus with foot ulcer; L97.429 - Non-pressure chronic ulcer of left heel and midfoot with unspecified severity Code(s): E11.621 - Type 2 diabetes mellitus with foot ulcer; L97.509 - Non-pressure chronic ulcer of other part of unspecified foot with unspecified severity Status: Chronic Assessment and Plan: patient believes ulcer started from tear in the skin from her callouses. General surgery consulted and appreciate recommendation. Delio is on hold pending possible debridement of wound. 11/24/22 Bedside I&D. Resume Eliquis per surgery recommendations. Continue broad-spectrum antibiotics - Vancomycin, Cefepime, Metronidazole IV. Wound culture result of growth of skin kristyn Blood cultures no growth to date Manage blood sugars. 11/27 General surgery with concerns for vascular compromise and need for arteriogram and vascular surgeon (2) Cellulitis of left lower extremity: Code(s): L03.116 - Cellulitis of left lower limb Status: Acute Assessment and Plan: As above. Monitor CBC, CRP 11/25/2022 CBC stable, repeat CRP in the morning was elevated admission Cellulitis likely from diabetic foot ulcer related to diabetes. 11/27/22 Dr. Prado does not believe that patient has cellulitis and rather has erythema due to vascular compromise. Antibiotics discontinued. (3) Peripheral vascular disease: Code(s): I73.9 - Peripheral vascular disease, unspecified Status: Chronic Assessment and Plan: She is scheduled to see a Vascular Surgeon outpatient with appointment on 12/08 (4) Mytig-iw-vcajfpq kidney injury: Code(s): N17.9 - Acute kidney failure, unspecified; N18.9 - Chronic kidney disease, unspecified Status: Acute Assessment and Plan: BUN 25, creatinine 1.4 (recent labs show 1.0), GFR 36 (recent labs 49) on admission. Patient was recently treated with oral Bactrim and likely contributing. Trend BMP daily Monitor I/O status Improving (5) Type 2 diabetes mellitus with diabetic neuropathy, unspecified: Code(s): E11.40 - Type 2 diabetes mellitus with diabetic neuropathy, unspecified Status: Chronic Assessment and Plan: Chronic, A1c 7.2%, unchanged from June. continue NPH 70/30 20 units in the mornring and 10 units at dinner. Continue glimepiride. Hold metformin d/t HALEY. Continue accu-checks AC/HS with aspart low dose sliding scale and hypoglycemic protocol (6) Essential (primary) hypertension: Code(s): I10 - Essential (primary) hypertension Status: Chronic Assessment and Plan: Chronic, continue antihypertensives. (7) Coronary artery disease: Code(s): I25.10 - Atherosclerotic heart disease of [place] coronary artery without angin
--- NOTE | 2022-11-27 13:57 | PM.PNGS ---
Progress Note: A&P Assessment and Plan (1) Peripheral vascular disease of lower extremity with ulceration: Code(s): I73.9 - Peripheral vascular disease, unspecified; L97.909 - Non-pressure chronic ulcer of unspecified part of unspecified lower leg with unspecified severity Status: Chronic Assessment and Plan: Patient has end-stage peripheral vascular disease of at least her left foot. The changes in her foot are due to ischemia. Infection is really not evident at this time. She does have an outpatient elective appointment with Dr. Forman in [place]. I called the hospitalist. If they would accept the patient in transfer, I would transfer her to [facility] where angiography can be done and vascular surgery evaluation can be performed. If patient does not have revascularizable left lower extremity disease, I suspect she will need a below-knee amputation. I discussed this with the hospitalist. If they cannot accept her in transfer, she could possibly be discharged on dressing changes and see Dr. Paulino this week in the office. Hopefully he would proceed with evaluation quickly. Also, the arterial brachial indices are misleading because the patient has atherosclerosis and the arteries will not occlude thereby giving falsely elevated results even though she has significant vascular insufficiency. (2) Diabetic foot ulcer: Qualifiers: Diabetes mellitus type: type 2 Diabetic foot ulcer location: midfoot Laterality: left Non-pressure ulcer stage: unspecified non-pressure ulcer stage Qualified Code(s): E11.621 - Type 2 diabetes mellitus with foot ulcer; L97.429 - Non-pressure chronic ulcer of left heel and midfoot with unspecified severity Code(s): E11.621 - Type 2 diabetes mellitus with foot ulcer; L97.509 - Non-pressure chronic ulcer of other part of unspecified foot with unspecified severity Status: Chronic Assessment and Plan: Nonhealing malperfusion runs ulcer left 1st metatarsal. Although this has been debrided adequately it will never heal unless blood supply can be restored. I do not see any signs of active infection at this time. The changes in her foot are those of inadequate perfusion. Continue dressing changes to left foot ulcer and arrange vascular evaluation and angiography quickly. Subjective Subjective Date/Time Seen: 11/27/22 13:58 Patient reports: no new complaints, pain is less (Patient has neuropathy, no real sensation in her feet) and afebrile Interval history: Patient seen in follow-up regarding left mal perforans ulcer. Review of Systems Review of Systems: All systems reviewed & are unremarkable except as noted in HPI and below (HPI and those items noted below) Constitutional: Constitutional: Denies chills and Denies fever(s) Cardiovascular: Cardiovascular: Denies chest pain, Denies diaphoresis, Denies dyspnea and Denies paroxysmal nocturnal dyspnea Respiratory: Respiratory: Denies chest congestion, Denies cough and Denies dyspnea Integumentary/Breasts: Skin/Breast: Denies lesions and Denies rash Exam Const: General: comfortable and no acute distress; No confusion Orientation/consciousness: patient oriented x3 and No confusion Cardio: Peripheral pulses: femoral pulses present on the right 1+ and on the left 1+, popliteal pulses not present (No left popliteal pulse), posterior tibial pulses not present (No left posterior tibial pulse) and dorsalis pedis pulses not present (No left dorsalis pedis pulse) Other: handheld pulse Doppler used, monophasic signals from both the posterior tibial and the dorsalis pedis in the left foot. Neuro: General: patient oriented x3, no focal motor deficits and No confusion Extrem: General: no calf tenderness and no edema Left lower extremity: ankle (Foot and ankle with erythema, tightened skin, ischemic change.) Details: no edema; no tenderness and no warmth and foot (Nonhealing malperforans ulcer 1st metatarsal) Deta
[2022-11-27 14:00] VITALS: BP 123/73; PULSE 80; RESP 18; TEMP 36.1; O2SAT 99
== END 2022-11-27 16:05 | disposition short-term general hospital (02) | DRG 638 ==
LOC: ANHED 15:29 → ANH3MEDSUR 16:28
PROVIDERS: Nurse Practitioner Family; Physician Assistant; Admitting Provider Student in an Organized Health Care Education/Training Program; Emergency Provider Physician Assistant; PCP Family Medicine; Visit Provider Internal Medicine Critical Care Medicine
DX: E11.621 Type 2 diabetes mellitus with foot ulcer (principal); L03.116 Cellulitis of left lower limb; L97.429 Non-pressure chronic ulcer of left heel and midfoot with unspecified severity; I73.9 Peripheral vascular disease, unspecified; N17.9 Acute kidney failure, unspecified; E11.40 Type 2 diabetes mellitus with diabetic neuropathy, unspecified; E11.22 Type 2 diabetes mellitus with diabetic chronic kidney disease; I12.9 Hypertensive chronic kidney disease with stage 1 through stage 4 chronic kidney disease, or unspecified chronic kidney disease; N18.30 Chronic kidney disease, stage 3 unspecified; I25.10 Atherosclerotic heart disease of native coronary artery without angina pectoris; E03.9 Hypothyroidism, unspecified; I48.0 Paroxysmal atrial fibrillation; Z79.01 Long term (current) use of anticoagulants; E78.2 Mixed hyperlipidemia; Z20.822 Contact with and (suspected) exposure to COVID-19; Z95.5 Presence of coronary angioplasty implant and graft; Z96.651 Presence of right artificial knee joint; Z79.4 Long term (current) use of insulin
CPT/HCPCS: 36415; 73630; 80048; 80053; 80202; 82948; 83036; 83735; 84439; 84443; 84480; 85025; 85027; 85652; 86140; 87040; 87070; 87205; 87426; 96365; 96367; 96375; 99285; A9270; C9803; J0692; J1815; J3370; J7030; J7040

== ENCOUNTER 2023-06-02 08:50 | Outpatient (CLI) | payer MEDICARE, SELFPAY ==
--- NOTE | ~2023-06-02 | CT_ITS ---
Clinical Indication: Malignant neoplasm of left bronchus CT Scan of the Chest, Abdomen, and Pelvis with Contrast: Technique: Contiguous sections were acquired throughout the chest, abdomen, and pelvis after intraven ous administration of 100 cc of Omnipaque 350. Dose reduction technique was used on this scan by uti deniseing automated exposure control and iterative reconstruction technique. The dose-length product (DL P) was 616.87 mGy-cm. COMPARISON: 06/03/2022 Findings: Possible prior right hemithyroidectomy. Prominent left thyroid lobe, stable from prior exam . There is no evidence of any significant mediastinal, hilar or axillary lymphadenopathy. The mediastin al soft tissues appear normal. There is no evidence of pleural or pericardial effusion. There is evidence of prior left upper lobectomy. There is minimal postoperative scarring. Several sub centimeter nodules in the right lung are stable from prior exam. 7 mm nodule at the left lung base an teriorly is unchanged.. The liver, spleen, pancreas, gallbladder, adrenals and kidneys are within normal limits. There are at herosclerotic calcifications of the aorta. No lymphadenopathy. Small hiatal hernia noted. No bowel obstruction or bowel wall thickening. There is no evidence to suggest acute appendicitis. Urinary bladder is unremarkable. No pelvic mass seen. No ascites. Advanced degenerative spondylosis n oted in the lumbar spine. Impression: Stable subcentimeter pulmonary nodules, presumably benign. Status post left upper lobectomy. Small hiatal hernia. No significant abnormality seen in the abdomen or pelvis otherwise. Reviewed, dictated and finalized at [facility]. Impression: Stable subcentimeter pulmonary nodules, presumably benign. Status post left upper lobectomy. Small hiatal hernia. No significant abnormality seen in the abdomen or pelvis otherwise.
[2023-06-02 09:17] LABS: Estimated Glomerular Filt Rate 43
== END 2023-06-02 08:51 | disposition home or self-care (01) ==
PROVIDERS: PCP Family Medicine; Visit Provider Internal Medicine Hematology & Oncology
DX: C34.92 Malignant neoplasm of unspecified part of left bronchus or lung (principal); J90 Pleural effusion, not elsewhere classified; K44.9 Diaphragmatic hernia without obstruction or gangrene
CPT/HCPCS: 71260; 74177; Q9967

== ENCOUNTER 2023-06-09 09:12 | Outpatient (CLI) | payer MEDICARE, SELFPAY ==
[2023-06-09 09:34] LABS: Basophils Percent Auto 0.6 % (0.2-1.2); Eosinophils Absolute Auto 0.1 K/mm3 (0-0.3); Eosinophils Percent Auto 1.2 % (0-4.4); Hematocrit 42.7 % (37.0-47.0); Hemoglobin 13.7 g/dL (12.0-15.0); Immature Granulocyte Absolute 0.02 K/mm3 (0.00-0.031); Immature Granulocyte Percent A 0.3 % (0-0.5); Lymphocytes Absolute Auto 0.61 K/mm3 (0.9-3.2); Lymphocytes Percent Auto 8.9 % (18.3-44.2); Mean Corpuscular HGB Conc 32.1 g/dl (32-36); Mean Corpuscular Volume 87.3 fl (80-100); Mean Platelet Volume 10.1 fl (7.4-10.4); Monocytes Absolute Auto 0.8 K/mm3 (0.1-0.6); Monocytes Percent Auto 10.9 % (2.6-8.5); Neutrophils Absolute Auto 5.4 K/mm3 (1.3-6.7); Neutrophils Percent Auto 78.1 % (45.5-73.1); Platelet Count Result 214 k/mm3 (150-375); Red Blood Count 4.89 M/mm3 (4.2-5.4); Red Cell Distribution Width 17.2 % (11.5-14.5); White Blood Count 6.9 K/mm3 (4.5-10.0)
[2023-06-09 09:43] LABS: Blood Urea Nitrogen 24 mg/dL (8-26); Carbon Dioxide 31 mmol/L (22-30); Chloride 100 mmol/L (98-109); Estimated Glomerular Filt Rate 48; Glucose 158 mg/dL (70-105); Sodium 141 mmol/L (138-146)
== END 2023-06-09 09:13 | disposition home or self-care (01) ==
PROVIDERS: PCP Family Medicine; Visit Provider Internal Medicine Hematology & Oncology
DX: C34.92 Malignant neoplasm of unspecified part of left bronchus or lung (principal)
CPT/HCPCS: 36415; 80047; 85025

== ENCOUNTER 2023-07-20 08:08 | Outpatient (CLI) | payer MEDICARE, SELFPAY ==
[2023-07-20 19:39] LABS: Basophils Percent Auto 0.4 % (0.2-1.2); Eosinophils Absolute Auto 0.1 K/mm3 (0-0.3); Eosinophils Percent Auto 2.2 % (0-4.4); Hematocrit 44.5 % (37.0-47.0); Hemoglobin 13.9 g/dL (12.0-15.0); Immature Granulocyte Absolute 0.02 K/mm3 (0.00-0.031); Immature Granulocyte Percent A 0.4 % (0-0.5); Lymphocytes Absolute Auto 0.61 K/mm3 (0.9-3.2); Lymphocytes Percent Auto 12.1 % (18.3-44.2); Mean Corpuscular HGB Conc 31.2 g/dl (32-36); Mean Corpuscular Hemoglobin 28.3 pg (26-34); Mean Corpuscular Volume 90.6 fl (80-100); Mean Platelet Volume 10.6 fl (7.4-10.4); Monocytes Absolute Auto 0.7 K/mm3 (0.1-0.6); Monocytes Percent Auto 13.1 % (2.6-8.5); Neutrophils Absolute Auto 3.6 K/mm3 (1.3-6.7); Neutrophils Percent Auto 71.8 % (45.5-73.1); Platelet Count Result 216 k/mm3 (150-375); Red Blood Count 4.91 M/mm3 (4.2-5.4); Red Cell Distribution Width 15.1 % (11.5-14.5)
[2023-07-20 20:00] LABS: Alanine Aminotransferase 47 U/L (6-35); Albumin Level 3.9 g/dL (3.5-5.1); Alkaline Phosphatase 129 U/L (38-126); Anion Gap 6 mmol/L (8-16); Aspartate Amino Transferase 38 U/L (14-36); Bilirubin,Total 0.8 mg/dL (0.2-1.3); Blood Urea Nitrogen 34 mg/dL (7-17); Calcium 9.4 mg/dL (8.4-10.2); Carbon Dioxide 31 mmol/L (22-30); Chloride 102 mmol/L (98-107); Cholesterol 132 mg/dL (0-200); Estimated Glomerular Filt Rate 48; Glucose 156 mg/dL (65-110); HDL Direct 30 mg/dL; Potassium 4.2 mmol/L (3.4-5.0); Sodium 139 mmol/L (137-145); Triglycerides 107 mg/dL (<150)
[2023-07-20 20:11] LABS: LDL Cholesterol Direct 78 mg/dL
[2023-07-20 20:29] LABS: Creatinine Urine 69.9 mg/dL
[2023-07-20 20:31] LABS: Vitamin D 25 Hydroxy 47.7 ng/mL
[2023-07-20 20:32] LABS: Microalbumin Urine Random 9.8 mg/L (0-16.7)
[2023-07-20 20:44] LABS: Thyroid Stimulating Hormone Reflex 0.054 uIU/mL (0.465-4.68)
[2023-07-20 20:46] LABS: Hemoglobin A1C 8.1 % (<5.7)
[2023-07-20 21:21] LABS: Free T4 Free Thyroxine Reflex 2.04 ng/dL (0.78-2.19)
== END 2023-07-20 08:09 | disposition home or self-care (01) ==
LOC: ANHGOSHLAB 08:10
PROVIDERS: PCP Family Medicine; Visit Provider Family Medicine
DX: M54.50 Low back pain, unspecified (principal); G89.29 Other chronic pain; I10 Essential (primary) hypertension; E11.9 Type 2 diabetes mellitus without complications; E04.2 Nontoxic multinodular goiter; E03.9 Hypothyroidism, unspecified; E53.8 Deficiency of other specified B group vitamins; E78.5 Hyperlipidemia, unspecified; E55.9 Vitamin D deficiency, unspecified
CPT/HCPCS: 36415; 80053; 80061; 82043; 82306; 82607; 83036; 84439; 84443; 84480; 85025

== ENCOUNTER 2023-12-21 10:54 | Outpatient (CLI) | payer MEDICARE, SELFPAY ==
--- NOTE | ~2023-12-21 | DEXA_ITS ---
Bone Density Report Name: GENET LOU Age: 78 Sex: Female Ethnicity: White Date of : 1945 Indication: postmenopausal; screening for osteoporosis; height loss; Referring Provider: Carlton Cloud Study: Bone densitometry was performed. Exam Date: December 21, 2023 Accession number: [id number] Bone Density: Region BMD T-score Z-score Classification AP Spine (L1, L3, L4) 1.543 4.5 7.1 Normal Femoral Neck (Left) 0.771 -0.7 1.6 Normal Total Hip (Left) 0.896 -0.4 1.6 Normal Femoral Neck (Right) 0.837 -0.1 2.2 Normal Total Hip (Right) 0.825 -1.0 1.1 Normal Total Hip Mean 0.861 -0.7 1.4 Normal World Health Organization criteria for BMD impression classify patients as: Normal (T-score at or above -1.0), Osteopenia (T-score between -1.0 and -2.5), or Osteoporosis (T-score at or below -2.5). 10-year Fracture Risk: FRAX not reported because: All T-scores for Spine Total, Hip Total, Femoral Neck at or above -1.0 Previous Exams: Region Exam Age BMD T-score BMD Change BMD Change Date g/cm2 vs Baseline vs Previous AP Spine(L1, L3, L4) 12/21/2023 78 1.543 4.5 0.100 0.106* 07/21/2012 66 1.437 3.5 -0.006 -0.025* 07/04/2009 63 1.462 3.7 0.018 0.106* 04/27/2006 60 1.356 2.8 -0.088 -0.088 02/21/2003 57 1.444 3.6 Total Hip(Left) 12/21/2023 78 0.896 -0.4 -0.168 -0.151* 07/21/2012 66 1.047 0.9 -0.017 0.013 07/04/2009 63 1.034 0.8 -0.030 -0.007 04/27/2006 60 1.041 0.8 -0.023 -0.023 02/21/2003 57 1.064 1.0 Total Hip(Right) 12/21/2023 78 0.825 -1.0 -0.173 -0.159* 07/21/2012 66 0.984 0.3 -0.014 0.027* 07/04/2009 63 0.957 0.1 -0.042 -0.063* 04/27/2006 60 1.019 0.6 0.021 0.021 02/21/2003 57 0.998 0.5 *Denotes significance at 95% confidence level, LSC for AP Spine = 0.022 g/cm2, LSC for Total Hip = 0.027 g/cm2 Clinical Information Provided by Patient: Has used the following medications: Vitamin D, Calcium Patient maximum height was 68 Menopause Age: 51 No regular weight bearing exercise Drinks caffeinated beverages Onset of menses at age 11 Number of children 1 Impression: The patient has normal bone mass. The BMD for the Total Hip(Left) decreased, changing by
== END 2023-12-21 10:55 ==
LOC: MICIMG 10:54
PROVIDERS: PCP Family Medicine; Visit Provider Family Medicine
DX: Z78.0 Asymptomatic menopausal state (principal)
CPT/HCPCS: 77080

== ENCOUNTER 2024-01-07 08:05 | Outpatient (CLI) | payer MEDICARE, SELFPAY ==
--- NOTE | ~2024-01-07 | MM_ITS ---
EXAMINATION: MM screening francisca BI w jf HISTORY: Screening mammogram TECHNIQUE: Craniocaudal and mediolateral oblique 3-D tomosynthesis images were obtained and synthetic 2-D images were generated. CAD analysis was submitted and interpreted. COMPARISON: 10/02/2022 bilateral screening mammogram 02/18/2022 Limited left breast ultrasound, reported negative 08/18/2021 diagnostic left mammogram and Limited left breast ultrasound 07/21/2021 bilateral screening mammogram BREAST PARENCHYMAL COMPOSITION: There are scattered areas of fibroglandular density. FINDINGS: There is no evidence of suspicious mass, calcification, or architectural distortion to sugg est malignancy in either breast. There has been no suspicious interval change. IMPRESSION: 1. No mammographic evidence of malignancy. 2. Recommend routine screening mammography in one year. BI-RADS Category 1: Negative Reviewed, dictated and finalized at location A.
== END 2024-01-07 08:06 ==
LOC: MICIMG 08:06
PROVIDERS: PCP Family Medicine; Visit Provider Family Medicine
DX: Z12.31 Encounter for screening mammogram for malignant neoplasm of breast (principal)
CPT/HCPCS: 77063; 77067

== ENCOUNTER 2024-02-14 08:01 | Outpatient (CLI) | payer MEDICARE, SELFPAY ==
[2024-02-14 13:29] LABS: Hematocrit 47.4 % (37.0-47.0); Hemoglobin 15.4 g/dL (12.0-15.0); Mean Corpuscular HGB Conc 32.5 g/dl (32-36); Mean Corpuscular Hemoglobin 29.7 pg (26-34); Mean Corpuscular Volume 91.5 fl (80-100); Mean Platelet Volume 10.5 fl (7.4-10.4); Platelet Count Result 216 k/mm3 (150-375); Red Blood Count 5.18 M/mm3 (4.2-5.4); Red Cell Distribution Width 13.7 % (11.5-14.5); White Blood Count 8.2 K/mm3 (4.5-10.0)
[2024-02-14 13:39] LABS: Alanine Aminotransferase 120 U/L (6-35); Albumin Level 4.1 g/dL (3.5-5.1); Alkaline Phosphatase 144 U/L (38-126); Anion Gap 8 mmol/L (4-12); Aspartate Amino Transferase 102 U/L (14-36); Bilirubin,Total 0.9 mg/dL (0.2-1.3); Blood Urea Nitrogen 26 mg/dL (7-17); Calcium 9.6 mg/dL (8.4-10.2); Carbon Dioxide 27 mmol/L (22-30); Chloride 105 mmol/L (98-107); Cholesterol 133 mg/dL (0-200); Estimated Glomerular Filt Rate 53; Glucose 130 mg/dL (65-110); HDL Direct 26 mg/dL; Sodium 140 mmol/L (137-145); Triglycerides 179 mg/dL (<150)
[2024-02-14 13:56] LABS: LDL Cholesterol Direct 78 mg/dL
[2024-02-14 14:00] LABS: Thyroid Stimulating Hormone 0.423 uIU/mL (0.465-4.680)
[2024-02-14 14:24] LABS: Free T4 Free Thyroxine 1.57 ng/mL (0.78-2.19)
[2024-02-18 11:09] LABS: Vitamin D 1,25 (OH)2 Total 28 pg/mL (18-72); Vitamin D2 1,25 (OH)2 <8 pg/mL; Vitamin D3 1,25 (OH)2 28 pg/mL
== END 2024-02-14 08:02 | disposition home or self-care (01) ==
LOC: ANHGOSHLAB 08:03
PROVIDERS: PCP Family Medicine; Visit Provider Family Medicine
DX: E03.9 Hypothyroidism, unspecified (principal); E11.40 Type 2 diabetes mellitus with diabetic neuropathy, unspecified; F41.9 Anxiety disorder, unspecified; E55.9 Vitamin D deficiency, unspecified; E78.2 Mixed hyperlipidemia; I12.9 Hypertensive chronic kidney disease with stage 1 through stage 4 chronic kidney disease, or unspecified chronic kidney disease; N18.30 Chronic kidney disease, stage 3 unspecified
CPT/HCPCS: 36415; 80053; 80061; 82652; 83036; 84439; 84443; 85027

== ENCOUNTER 2024-06-19 09:20 | Outpatient (CLI) | payer MEDICARE, SELFPAY ==
--- NOTE | ~2024-06-19 | CT_ITS ---
CT Scan of the Chest without Contrast: Clinical Indication: Personal history of malignancy Technique: Contiguous sections were acquired throughout the chest without intravenous contrast. Dose reduction technique was used on this scan by utilizing automated exposure control and iterative recon struction technique. The dose-length product (DLP) was 352.51 mGy-cm. COMPARISON: 06/02/2023 Findings: Stable prominent left thyroid lobe and probable prior right hemithyroidectomy. There is no evidence of any significant mediastinal, hilar or axillary lymphadenopathy. There are ath erosclerotic calcifications of the aorta and coronary arteries. No pericardial effusion. Small left pleural effusion present. No right pleural effusion. Status post left upper lobectomy. There is linear scarring/postoperative distortion in the left lung. Stable semisolid medial 3 mm right upper lobe pulmonary nodule (axial image 48). Stable groundglass nodule in the left lung measuring 12 mm (axial image 48). Stable 7 mm nodule at the anterior left abdiaziz g base.. Images through the upper abdomen reveal no abnormalities. Impression: Stable pulmonary nodules and groundglass opacities, as above. Status post left upper lobectomy. Small left pleural effusion. Reviewed, dictated and finalized at location . Impression: Stable pulmonary nodules and groundglass opacities, as above. Status post left upper lobectomy. Small left pleural effusion.
== END 2024-06-19 09:21 | disposition home or self-care (01) ==
PROVIDERS: PCP Family Medicine; Visit Provider Nurse Practitioner Family
DX: Z85.118 Personal history of other malignant neoplasm of bronchus and lung (principal); J90 Pleural effusion, not elsewhere classified
CPT/HCPCS: 71250

== ENCOUNTER 2024-07-18 08:17 | Outpatient (CLI) | payer MEDICARE, SELFPAY ==
[2024-07-18 20:55] LABS: Alanine Aminotransferase 47 U/L (6-35); Alkaline Phosphatase 119 U/L (38-126); Anion Gap 6 mmol/L (4-12); Aspartate Amino Transferase 50 U/L (14-36); Blood Urea Nitrogen 26 mg/dL (7-17); Calcium 9.9 mg/dL (8.4-10.2); Carbon Dioxide 34 mmol/L (22-30); Chloride 104 mmol/L (98-107); Estimated Glomerular Filt Rate 53; Glucose 70 mg/dL (65-110); Sodium 144 mmol/L (137-145)
[2024-07-18 21:19] LABS: Thyroid Stimulating Hormone 0.472 uIU/mL (0.465-4.680)
== END 2024-07-18 08:18 | disposition home or self-care (01) ==
PROVIDERS: PCP Family Medicine; Visit Provider Student in an Organized Health Care Education/Training Program
DX: E03.9 Hypothyroidism, unspecified (principal); E11.40 Type 2 diabetes mellitus with diabetic neuropathy, unspecified; R74.8 Abnormal levels of other serum enzymes; Z79.4 Long term (current) use of insulin
CPT/HCPCS: 36415; 80053; 83036; 84443

== ENCOUNTER 2024-08-02 12:46 | Emergency (ER) | payer MEDICARE, SELFPAY ==
[2024-08-02] VITALS (10 sets, daily range): BP systolic 160–203; BP diastolic 80–95; PULSE 73–83; RESP 12–23; TEMP 36.3; O2SAT 95–100
--- NOTE | ~2024-08-02 | XR_ITS ---
Clinical Indication: Chest pain AP and lateral views of the chest: Comparison: 10/18/2019 Findings: Probable linear scarring or atelectasis left lung base. The lungs are otherwise clear, with out evidence of focal consolidation or pleural effusion. Cardiomediastinal silhouette is within norm al limits. Bones and soft tissues are unremarkable. Impression: Probable linear scarring or atelectasis left lung base, otherwise clear lungs. Reviewed, dictated and finalized at location [facility] Impression: Probable linear scarring or atelectasis left lung base, otherwise clear lungs.
--- NOTE | 2024-08-02 12:58 | ECG_ITS ---
Test Date: 2024-08-02 15:44:[address] Rate: P: 0 OK: 0 QRS: 0 QRSD: 0 T: 0 QT: 0 QTc: 0 Interpretive Statements ATRIAL FIBRILLATION WITH NORMAL VENTRICULAR RESPONSE ANTEROSEPTAL INFARCT, AGE INDETERMINATE CONSIDER INFERIOR INFARCT, AGE INDETERMINATE ABNORMAL ECG No previous ECG available for comparison Electronically Signed On 08-02-2024 15:47:42 FINANCE ASSOCIATE by Jorge Lopez D.O.
--- NOTE | 2024-08-02 15:35 | ED_ITS ---
HPI - Chest Pain General Chief Complaint: Chest Pain <Keely Trinh APRN - Last Filed: 08/02/24 15:36> Stated Complaint: chest pain/SOB <Keely Trinh APRN - Last Filed: 08/02/24 15:36> Time Seen by Provider: 08/02/24 15:00 <Keely Trinh APRN - Last Filed: 08/02/24 15:36> Focused HPI: Patient is a 8-year-old female who presents to the ER with complaints of difficulty breathing and chest palpitations for the past 2 days. She denies any respiratory history except for lung cancer in 2017. Patient reports she has a cardiac history and has had stents placed in the past. She also endorses history of diabetes, hypertension, and is on a blood thinner. Patient denies fevers, abdominal pain, or changes in her blood sugars at home. GENERAL: Well-appearing, well-nourished, and in no acute distress. HEAD: Normocephalic, atraumatic. CHEST: Clear to auscultation. ?No respiratory distress. HEART: Regular rate and rhythm.? NEURO: ?Alert and oriented x3. Patient screened in triage and initial orders placed.? ?Additional care and disposition to be based upon?diagnostic testing and treatment. <Keely Trinh APRN - Last Filed: 08/02/24 15:36> History of Present Illness HPI narrative: 78-year-old female presenting with palpitations. Associated with shortness of breath which she states is chronic but it did feel worse today. She denies any chest pain. <Oliva Smith MD - Last Filed: 08/05/24 13:45> Related Data Home Medications: Home Medications Medication Instructions Recorded Confirmed metoprolol succinate 100 mg 150 mg PO DAILY 06/28/22 07/23/24 tablet,extended release 24 hr aspirin 81 mg capsule 81 mg PO DAILY 11/23/22 07/23/24 calcium citrate 200 mg PO DAILY 11/23/22 07/23/24 cholecalciferol (vitamin D3) 25 25 mcg PO DAILY 11/23/22 07/23/24 mcg (1,000 unit) tablet magnesium 250 mg tablet 250 mg PO DAILY 11/23/22 07/23/24 multivitamin 1 tablet PO DAILY 11/23/22 07/23/24 vitamin B complex (B 1 tablet PO DAILY 11/23/22 07/23/24 Complex-Vitamin B12 tablet) atorvastatin 40 mg tablet 40 mg PO QHS 07/19/23 07/23/24 latanoprost 0.005 % eye drops 1 drp EACH EYE DAILY 02/16/24 07/23/24 timolol 0.5 % eye drops 1 drp EACH EYE DAILY 07/23/24 07/23/24 <Keely Trinh APRN - Last Filed: 08/02/24 15:36> Allergies/Adverse Reactions: Allergies Allergy/AdvReac Type Severity Reaction Status Date / Time No Known Allergies Allergy Verified 07/23/24 12:54 <Keely Trinh APRN - Last Filed: 08/02/24 15:36> Review of Systems Review of Systems: All systems reviewed & are unremarkable except as noted in HPI and below <Oliva Smith MD - Last Filed: 08/05/24 13:45> [facility] Past Medical History Medical History: Medical History Amputation of left great toe Anxiety Calcified cerebral meningioma Chronic kidney disease, stage 3 Chronic low back pain Coronary artery disease Essential (primary) hypertension Hemorrhoids History of benign breast biopsy History of Clostridioides difficile colitis (~12/2022) Hypothyroidism (acquired) Mixed hyperlipidemia Non-small cell cancer of left lung (~08/2016) VATS Fall 2015 Paroxysmal atrial fibrillation Peripheral vascular disease (~11/2022) Type 2 diabetes mellitus with diabetic neuropathy, unspecified <Keely Trinh APRN - Last Filed: 08/02/24 15:36> Surgical History Surgical History: Surgical History History of coronary artery stent placement 1999 and 2009 History of femoropopliteal bypass (~11/2022) Left History of lobectomy of lung (08/2016) Excision left upper lobe mass. History of partial amputation of toe of left foot (~11/2022) left 1st and partial 2nd toe amputations History of partial thyroidectomy (2010) History of right knee joint replacement (2015) <Keely Trinh APRN - Last Filed: 08/02/24 15:36> Family History Family History: Family History Grandparent Diabetes mellitus Cerebrovascular accident Mother Hypertension Family history of elevated blood lipids, Onset Age: 75 Family history of cardiovascular disease, Onset Age: 75 Acute myocardial infarction, Onset Age: 75 Patient's mother is Father Hypertension Family history of cardiovascular disease, Onset Age: 60 Patient's father is Sibling Hypertension Family history of elevated blood lipids Family history of cardiovascular disease <Keely Trinh, COMPUTER GRAPHIC ARTIST - Last Filed: 08/02/24 15:36> Social History Social History: Social History Social History: Surrogate medical decision maker: Nelda Hopkins, niece. Code status: Full code. Smoking status: Former smoker Smoking end date: 12/11/86 Additional smoking assessment comments: Twenty pack-year smoking history. Alcohol intake: never Substance use type: does not use Lack of Transportation: No Lack of Food: Never True Current Housing: I Have Housing Concerned About Future Housing: No Difficulty Paying Gas/Electric Bills: No Difficulty Paying for Meds: No Currently Unemployed: No Education: High School Diploma/GED Difficulty w/ Childcare or Family Care: No Spiritual care concerns: No <Keely Trinh, COMPUTER GRAPHIC ARTIST - Last Filed: 08/02/24 15:36> Exam Narrative: GENERAL: Nontoxic, in no acute distress, pleasant and cooperative HEAD: Normocephalic, atraumatic. EYES: PERRLA and EOMI. ENT: Grossly unremarkable NECK: Supple. CHEST: No respiratory distress. HEART: Regular rate, irregularly irregular rhythm. ABDOMEN: Soft, nontender, nondistended EXTREMITIES: Normal range of motion. No edema. SKIN: Warm, dry, no rash. NEURO: Alert and oriented x3. PSYCH: Normal mood and affect. <Oliva Smith MD - Last Filed: 08/05/24 13:45> Course Vital Signs Vital signs: Vital Signs Temperature 97.4 F L 08/02/24 12:57 Pulse Rate 73 08/02/24 12:57 Respiratory Rate 16 08/02/24 12:57 Blood Pressure 160/95 H 08/02/24 12:57 Pulse Oximetry 95 08/02/24 12:57 Temperature 97.4 F L 08/02/24 12:57 Pulse Rate 75 08/02/24 20:38 Respiratory Rate 18 08/02/24 20:38 Blood Pressure 176/85 H 08/02/24 20:38 Pulse Oximetry 100 08/02/24 20:38 <Keely Trinh APRN - Last Filed: 08/02/24 15:36> Vital Signs Temperature 97.4 F L 08/02/24 12:57 Pulse Rate 73 08/02/24 12:57 Respiratory Rate 16 08/02/24 12:57 Blood Pressure 160/95 H 08/02/24 12:57 Pulse Oximetry 95 08/02/24 12:57 Temperature 97.4 F L 08/02/24 12:57 Pulse Rate 75 08/02/24 20:38 Respiratory Rate 18 08/02/24 20:38 Blood Pressure 176/85 H 08/02/24 20:38 Pulse Oximetry 100 08/02/24 20:38 <Oliva Smith MD - Last Filed: 08/05/24 13:45> MDM - Chest Pain MDM Narrative Medical decision making narrative: 78-year-old female presenting with palpitations and shortness of breath. Vitals are stable. Exam remarkable for the above. EKG per my interpretation shows atrial fibrillation with a ventricular rate of 76, no ST elevations or depressions. Chest x-ray without acute abnormalities. Blood work without acute abnormalities. Patient feels well here. Feel she is safe for outpatient management. Recommend close PCP follow-up. Strict return precautions given. She is agreeable this plan. Discharged in stable condition. <Oliva Smith MD - Last Filed: 08/05/24 13:45> Differential Diagnosis Differential diagnosis: Likely other (Palpitations, dyspnea, atrial fibrillation) <Oliva Smith MD - Last Filed: 08/05/24 13:45> Medical Records Data Attestation: I reviewed the patient's medical records. <Oliva Smith MD - Last Filed: 08/05/24 13:45> Lab Data Attestation: I reviewed the patient's lab results. <Oliva Smith MD - Last Filed: 08/05/24 13:45> Result diagrams: 08/02/24 15:53 08/02/24 15:53 <Keely Trinh APRN - Last Filed: 08/02/24 15:36> Labs: Lab Results 08/02/24 08/02/24 08/02/24 Range/Units 15:53 15:53 19:19 WBC 8.8 (4.5-10.0) K/mm3 RBC 5.31 (4.2-5.4) M/mm3 Hgb 16.3 H (12.0-15.0) g/dL Hct 48.9 H (37.0-47.0) % MCV 92.1 (80-100) fl MCH 30.7 (26-34) pg MCHC 33.3 (32-36) g/dl RDW 12.7 (11.5-14.5) % Plt Count 202 (150-375) k/mm3 MPV 10.1 (7.4-10.4) fl Immature Gran % (Auto) 0.2 (0-0.5) % Neut % (Auto) 70.5 (45.5-73.1) % Lymph % (Auto) 15.2 L (18.3-44.2) % Stearns % (Auto) 11.5 H (2.6-8.5) % Eos % (Auto) 2.1 (0-4.4) % Baso % (Auto) 0.5 (0.2-1.2) % Lymph # (Auto) 1.33 (0.9-3.2) K/mm3 Stearns # (Auto) 1.0 H (0.1-0.6) K/mm3 Eos # (Auto) 0.2 (0-0.3) K/mm3 Baso # (Auto) 0.0 (0.0-0.1) K/mm3 Abs Immat Gran (auto) 0.02 (0.00-0.031) K/mm3 Absolute Neuts (auto) 6.2 (1.3-6.7) K/mm3 Absolute Nucleated RBC 0.000 (0.0-0.012) K/mm3 Nucleated RBC % 0.0 (0.0-0.2) % PT 17.8 H (11.1-14.7) Seconds INR 1.4 APTT 39.7 H (22.3-36.8) Seconds Sodium 143 (137-145) mmol/L Potassium 3.6 (3.4-5.0) mmol/L Chloride 103 (98-107) mmol/L Carbon Dioxide 34 H (22-30) mmol/L Anion Gap 6 (4-12) mmol/L BUN 26 H (7-17) mg/dL Creatinine 1.00 (0.7-1.0) mg/dL Estim Creat Clear Calc 44 ml/min Estimated GFR 53 L (59 - ) Glucose 106 (65-110) mg/dL Calcium 10.1 (8.4-10.2) mg/dL Total Bilirubin 1.2 (0.2-1.3) mg/dL AST 92 H (14-36) U/L ALT 118 H (6-35) U/L Alkaline Phosphatase 125 (38-126) U/L Troponin I < 0.012 < 0.012 (0.000-0.034) ng/mL NT-Pro-B Natriuret Pep 803 H Cancelled (19.9-100) pg/mL Total Protein 9.0 H (6.3-8.2) g/dL Albumin 4.7 (3.5-5.1) g/dL Lipase 131 (23-300) U/L <Keely Trinh, COMPUTER GRAPHIC ARTIST - Last Filed: 08/02/24 15:36> Lab Results 08/02/24 08/02/24 08/02/24 Range/Units 15:53 15:53 19:19 WBC 8.8 (4.5-10.0) K/mm3 RBC 5.31 (4.2-5.4) M/mm3 Hgb 16.3 H (12.0-15.0) g/dL Hct 48.9 H (37.0-47.0) % MCV 92.1 (80-100) fl MCH 30.7 (26-34) pg MCHC 33.3 (32-36) g/dl RDW 12.7 (11.5-14.5) % Plt Count 202 (150-375) k/mm3 MPV 10.1 (7.4-10.4) fl Immature Gran % (Auto) 0.2 (0-0.5) % Neut % (Auto) 70.5 (45.5-73.1) % Lymph % (Auto) 15.2 L (18.3-44.2) % Stearns % (Auto) 11.5 H (2.6-8.5) % Eos % (Auto) 2.1 (0-4.4) % Baso % (Auto) 0.5 (0.2-1.2) % Lymph # (Auto) 1.33 (0.9-3.2) K/mm3 Stearns # (Auto) 1.0 H (0.1-0.6) K/mm3 Eos # (Auto) 0.2 (0-0.3) K/mm3 Baso # (Auto) 0.0 (0.0-0.1) K/mm3 Abs Immat Gran (auto) 0.02 (0.00-0.031) K/mm3 Absolute Neuts (auto) 6.2 (1.3-6.7) K/mm3 Absolute Nucleated RBC 0.000 (0.0-0.012) K/mm3 Nucleated RBC % 0.0 (0.0-0.2) % PT 17.8 H (11.1-14.7) Seconds INR 1.4 APTT 39.7 H (22.3-36.8) Seconds Sodium 143 (137-145) mmol/L Potassium 3.6 (3.4-5.0) mmol/L Chloride 103 (98-107) mmol/L Carbon Dioxide 34 H (22-30) mmol/L Anion Gap 6 (4-12) mmol/L BUN 26 H (7-17) mg/dL Creatinine 1.00 (0.7-1.0) mg/dL Estim Creat Clear Calc 44 ml/min Estimated GFR 53 L (59 - ) Glucose 106 (65-110) mg/dL Calcium 10.1 (8.4-10.2) mg/dL Total Bilirubin 1.2 (0.2-1.3) mg/dL AST 92 H (14-36) U/L ALT 118 H (6-35) U/L Alkaline Phosphatase 125 (38-126) U/L Troponin I < 0.012 < 0.012 (0.000-0.034) ng/mL NT-Pro-B Natriuret Pep 803 H Cancelled (19.9-100) pg/mL Total Protein 9.0 H (6.3-8.2) g/dL Albumin 4.7 (3.5-5.1) g/dL Lipase 131 (23-300) U/L <Oliva Smith MD - Last Filed: 08/05/24 13:45> Imaging Data Radiologist's impression: ITS Impressions Chest X-Ray 08/02/24 13:34 Impression: Probable linear scarring or atelectasis left lung base, otherwise clear lungs. <Oliva Smith MD - Last Filed: 08/05/24 13:45> Critical Care Time Critical Care Time Critical Care Time: No <Oliva Smith MD - Last Filed: 08/05/24 13:45> Discharge Plan Discharge Clinical Impression: Atrial fibrillation with normal ventricular rate, Dyspnea, Palpitations <Keely Trinh APRN - Last Filed: 08/02/24 15:36> Patient Disposition: Home, Self-Care <Keely Trinh APRN - Last Filed: 08/02/24 15:36> Condition: Stable <Keely Trinh APRN - Last Filed: 08/02/24 15:36> Instructions: Antibiotic Form, A-fib (Atrial Fibrillation) (ED), Heart Palpitations (DC) <Keely Trinh APRN - Last Filed: 08/02/24 15:36> Additional Instructions: Your blood work, EKG, chest x-ray today are reassuring. Please follow-up closely with primary care and your machinery erector. If your symptoms worsen or other concerning symptoms arise, please return to the ER. <Keely Trinh APRN - Last Filed: 08/02/24 15:36> Prescriptions: No Action latanoprost 0.005 % drops 1 drp EACH EYE DAILY gabapentin 300 mg capsule 600 mg PO TID Qty: 540 1RF Rx Instructions: 2 capsules in the AM, 2 capsules at Noon, 1 capsule in PM. Novolin 70/30 U-100 Insulin 100 unit/mL (70-30) suspension See Rx Instructions .ROUTE .COMPLEX Qty: 10 3RF Dose Instruction: INJECT 15 UNITS SUBCUTANEOUSLY ONCE DAILY IN THE MORNING AND 10 UNITS EACH NIGHT Rx Instructions: INJECT 22 UNITS SUBCUTANEOUSLY ONCE DAILY IN THE MORNING AND 12 UNITS EACH NIGHT timolol 0.5 % drops 1 drp EACH EYE DAILY metoprolol succinate 100 mg tablet extended release 24 hr 150 mg PO DAILY atorvastatin 40 mg tablet 40 mg PO QHS multivitamin [Daily Multivitamin] Tablet 1 tablet PO DAILY vitamin B complex [B Complex-Vitamin B12] Tablet 1 tablet PO DAILY magnesium 250 mg Tablet 250 mg PO DAILY calcium citrate [Citracal] 200 mg (950 mg) Tablet 200 mg PO DAILY cholecalciferol (vitamin D3) 25 mcg (1,000 unit) Tablet 25 mcg PO DAILY aspirin 81 mg Capsule 81 mg PO DAILY blood sugar diagnostic Strip 1 strip miscellaneous BID Qty: 100 11RF levothyroxine 50 mcg tablet 50 mcg PO DAILY Qty: 90 1RF lisinopril 40 mg tablet 40 mg PO DAILY Qty: 90 1RF (DME) lancets [OneTouch Delica Plus Lancet] 33 gauge misc See Rx Instructions .Route Qty: 100 1RF Rx Instructions: Use to check blood sugars twice daily (DME) OneTouch Ultra Test Strip See Rx Instructions .Route Qty: 100 1RF Rx Instructions: Use to check blood sugars twice daily glimepiride 4 mg tablet 4 mg PO DAILY Qty: 90 1RF indapamide 1.25 mg tablet 1.25 mg PO DAILY Qty: 90 1RF (DME) insulin syringe-needle U-100 [BD Veo Insulin Syringe UF] 1/2 mL 31 gauge x 15/64 syringe See Rx Instructions .ROUTE .COMPLEX Qty: 100 1RF Dose Instruction: USE DIRECTED Rx Instructions: Use with Novolin Xarelto 20 mg tablet 20 mg PO HS Qty: 90 1RF alprazolam 0.5 mg tablet 0.5 mg PO BID PRN (Reason: anxiety) Qty: 60 1RF diltiazem HCl 180 mg capsule,extended release 24 hr 180 mg PO DAILY Qty: 90 1RF <Keely Trinh APRN - Last Filed: 08/02/24 15:36> Follow-up/Referrals: Israel Quiros MD [Physician] - Carlton Cloud MD [Primary Care Provider] - <Keely Trinh APRN - Last Filed: 08/02/24 15:36>
--- NOTE | 2024-08-02 15:46 | ECG_ITS ---
Test Date: 2024-08-02 15:46:31 Measurements Intervals [place] Rate: 76 P: 0 NC: 0 QRS: -57 QRSD: 95 T: 39 QT: 391 QTc: 441 Interpretive Statements ATRIAL FIBRILLATION LEFT AXIS DEVIATION [QRS AXIS < -30] ANTEROSEPTAL INFARCT, AGE INDETERMINATE CONSIDER INFERIOR INFARCT, AGE INDETERMINATE BASELINE ARTIFACT- I, II, III, AVR, AVL, AVF ABNORMAL ECG Compared to ECG 08/02/2024 15:44:49 NO SIGNIFICANT CHANGE Electronically Signed On 08-02-2024 19:16:03 TOP PRECIPITATOR OPERATOR HELPER by Jorge Lopez D.O.
[2024-08-02 16:02] LABS: Basophils Percent Auto 0.5 % (0.2-1.2); Eosinophils Absolute Auto 0.2 K/mm3 (0-0.3); Eosinophils Percent Auto 2.1 % (0-4.4); Hematocrit 48.9 % (37.0-47.0); Hemoglobin 16.3 g/dL (12.0-15.0); Immature Granulocyte Absolute 0.02 K/mm3 (0.00-0.031); Immature Granulocyte Percent A 0.2 % (0-0.5); Lymphocytes Absolute Auto 1.33 K/mm3 (0.9-3.2); Lymphocytes Percent Auto 15.2 % (18.3-44.2); Mean Corpuscular HGB Conc 33.3 g/dl (32-36); Mean Corpuscular Hemoglobin 30.7 pg (26-34); Mean Corpuscular Volume 92.1 fl (80-100); Mean Platelet Volume 10.1 fl (7.4-10.4); Monocytes Percent Auto 11.5 % (2.6-8.5); Neutrophils Absolute Auto 6.2 K/mm3 (1.3-6.7); Neutrophils Percent Auto 70.5 % (45.5-73.1); Platelet Count Result 202 k/mm3 (150-375); Red Blood Count 5.31 M/mm3 (4.2-5.4); Red Cell Distribution Width 12.7 % (11.5-14.5); White Blood Count 8.8 K/mm3 (4.5-10.0)
[2024-08-02 16:15] LABS: Alanine Aminotransferase 118 U/L (6-35); Albumin Level 4.7 g/dL (3.5-5.1); Alkaline Phosphatase 125 U/L (38-126); Anion Gap 6 mmol/L (4-12); Aspartate Amino Transferase 92 U/L (14-36); Bilirubin,Total 1.2 mg/dL (0.2-1.3); Blood Urea Nitrogen 26 mg/dL (7-17); Calcium 10.1 mg/dL (8.4-10.2); Carbon Dioxide 34 mmol/L (22-30); Chloride 103 mmol/L (98-107); Estimated CRCL calculation 44 ml/min; Estimated Glomerular Filt Rate 53; Glucose 106 mg/dL (65-110); Lipase 131 U/L (23-300); Potassium 3.6 mmol/L (3.4-5.0); Sodium 143 mmol/L (137-145)
[2024-08-02 16:26] LABS: NT Pro B Type Natriuretic Pept 803 pg/mL (19.9-100); Troponin I < 0.012 ng/mL (0.000-0.034)
[2024-08-02 16:39] LABS: INR 1.4; Prothrombin Time 17.8 Seconds (11.1-14.7)
[2024-08-02 16:40] LABS: Partial Thromboplastin Time 39.7 Seconds (22.3-36.8)
--- NOTE | 2024-08-02 19:34 | ECG_ITS ---
Test Date: 2024-08-02 19:27:23 Measurements Intervals [place] Rate: 85 P: 0 [place]: 0 QRS: -55 QRSD: 90 T: 52 QT: 385 QTc: 458 Interpretive Statements ATRIAL FIBRILLATION LEFT AXIS DEVIATION ANTEROSEPTAL INFARCT, AGE INDETERMINATE CONSIDER INFERIOR INFARCT, AGE INDETERMINATE ABNORMAL ECG Compared to ECG 08/02/2024 15:46:31 No significant changes Electronically Signed On 08-03-2024 09:07:56 JACK PRIZER by Jorge Lopez D.O.
[2024-08-02 19:56] LABS: Troponin I < 0.012 ng/mL (0.000-0.034)
== END 2024-08-02 20:41 | disposition home or self-care (01) ==
PROVIDERS: Emergency Medicine; Emergency Provider Emergency Medicine; PCP Family Medicine
DX: I48.91 Unspecified atrial fibrillation (principal); R00.2 Palpitations; R06.00 Dyspnea, unspecified; I25.10 Atherosclerotic heart disease of native coronary artery without angina pectoris; I12.9 Hypertensive chronic kidney disease with stage 1 through stage 4 chronic kidney disease, or unspecified chronic kidney disease; E11.22 Type 2 diabetes mellitus with diabetic chronic kidney disease; N18.30 Chronic kidney disease, stage 3 unspecified; E11.40 Type 2 diabetes mellitus with diabetic neuropathy, unspecified; E11.51 Type 2 diabetes mellitus with diabetic peripheral angiopathy without gangrene; I73.9 Peripheral vascular disease, unspecified; E78.2 Mixed hyperlipidemia; E89.0 Postprocedural hypothyroidism; Z95.5 Presence of coronary angioplasty implant and graft; Z96.651 Presence of right artificial knee joint; Z85.118 Personal history of other malignant neoplasm of bronchus and lung; Z87.891 Personal history of nicotine dependence; Z90.2 Acquired absence of lung [part of]; Z89.422 Acquired absence of other left toe(s); Z89.412 Acquired absence of left great toe; Z79.82 Long term (current) use of aspirin; Z79.899 Other long term (current) drug therapy; Z79.84 Long term (current) use of oral hypoglycemic drugs; Z79.01 Long term (current) use of anticoagulants; Z79.4 Long term (current) use of insulin; R94.31 Abnormal electrocardiogram [ECG] [EKG]
CPT/HCPCS: 36415; 71046; 80053; 83690; 83880; 84484; 85025; 85610; 85730; 93005; 99284

== ENCOUNTER 2024-08-11 08:25 | Emergency (ER) | payer MEDICARE, SELFPAY ==
[2024-08-11 08:34] VITALS: BP 146/95; PULSE 90; RESP 16; TEMP 36.6; O2SAT 99
--- NOTE | 2024-08-11 08:41 | ED_ITS ---
HPI - Skin/Abscess/Foreign Bdy General Chief complaint: Skin/Abscess/Foreign Body Stated complaint: Rash Time Seen by Provider: 08/11/24 08:40 Source: patient Mode of arrival: ambulatory Limitations: no limitations History of Present Illness HPI narrative: Wanda is a 78-year-old female patient presenting to the clinic today with complaints of a rash to the right side of her face that started yesterday. She was reports she woke up this morning and the rash spread. Has red, painful, numb tingling rash to the chin right cheek, and right temporal area that also extending into the hairline. Denies any fever or chills. Has never had shingles before but has had the shingles vaccine. She denies any eye pain or visual changes of the right eye. Related Data Home Medications Medication Instructions Recorded Confirmed metoprolol succinate 100 mg 150 mg PO DAILY 06/28/22 08/11/24 tablet,extended release 24 hr aspirin 81 mg capsule 81 mg PO DAILY 11/23/22 08/11/24 calcium citrate 200 mg PO DAILY 11/23/22 08/11/24 cholecalciferol (vitamin D3) 25 25 mcg PO DAILY 11/23/22 08/11/24 mcg (1,000 unit) tablet magnesium 250 mg tablet 250 mg PO DAILY 11/23/22 08/11/24 multivitamin 1 tablet PO DAILY 11/23/22 08/11/24 vitamin B complex (B 1 tablet PO DAILY 11/23/22 08/11/24 Complex-Vitamin B12 tablet) atorvastatin 40 mg tablet 40 mg PO QHS 07/19/23 08/11/24 latanoprost 0.005 % eye drops 1 drp EACH EYE DAILY 02/16/24 08/11/24 timolol 0.5 % eye drops 1 drp EACH EYE DAILY 07/23/24 08/11/24 insulin human U-100 NPH-regulr See Rx Instructions .Route .COMPLEX 08/08/24 08/11/24 70-30 mix 100 unit/mL subcutaneous susp (Novolin 70/30 U-100 Insulin) insulin human U-100 NPH-regulr subcut 08/11/24 08/11/24 70-30 mix 100 unit/mL subcutaneous susp (Novolin 70/30 U-100 Insulin) Allergies Allergy/AdvReac Type Severity Reaction Status Date / Time No Known Allergies Allergy Verified 08/11/24 08:34 Review of Systems Review of Systems: Pertinent positives per HPI. Patient denies any fever, chills, headache, visual changes, dizziness, cough, runny nose, sore throat, shortness of breath, chest pain, palpitations, nausea, vomiting, diarrhea, constipation, abdominal pain, or any urinary issues. FOR[facility], LATER [facility] Past Medical History Medical History Amputation of left great toe Anxiety Calcified cerebral meningioma Chronic kidney disease, stage 3 Chronic low back pain Coronary artery disease Essential (primary) hypertension Hemorrhoids History of benign breast biopsy History of Clostridioides difficile colitis (~12/2022) Hypothyroidism (acquired) Mixed hyperlipidemia Non-small cell cancer of left lung (~08/2016) VATS Fall 2015 Paroxysmal atrial fibrillation Peripheral vascular disease (~11/2022) Type 2 diabetes mellitus with diabetic neuropathy, unspecified Surgical History Surgical History History of coronary artery stent placement 1999 and 2009 History of femoropopliteal bypass (~11/2022) Left History of lobectomy of lung (08/2016) Excision left upper lobe mass. History of partial amputation of toe of left foot (~11/2022) left 1st and partial 2nd toe amputations History of partial thyroidectomy (2010) History of right knee joint replacement (2015) Family History Family History Grandparent Diabetes mellitus Cerebrovascular accident Mother Hypertension Family history of elevated blood lipids, Onset Age: 75 Family history of cardiovascular disease, Onset Age: 75 Acute myocardial infarction, Onset Age: 75 Patient's mother is Father Hypertension Family history of cardiovascular disease, Onset Age: 60 Patient's father is Sibling Hypertension Family history of elevated blood lipids Family history of cardiovascular disease Social History Social History Social History: Surrogate medical decision maker: Nelda Thomasizaiah, niece. Code status: Full code. Smoking status: Former smoker Smoking end date: 12/11/86 Additional smoking assessment comments: Twenty pack-year smoking history. Alcohol intake: never Substance use type: does not use Lack of Transportation: No Lack of Food: Never True Current Housing: I Have Housing Concerned About Future Housing: No Difficulty Paying Gas/Electric Bills: No Difficulty Paying for Meds: No Currently Unemployed: No Education: High School Diploma/GED Difficulty w/ Childcare or Family Care: No Spiritual care concerns: No Comments At the time of my signature, I reviewed and agree with the nursing past medical, surgical, social, and family history. There is no relevant family history pertinent to the patient complaint. Exam Narrative: General: Well-developed, well nourished, in no apparent distress Head: Normocephalic, atraumatic. Cardio: Regular rate and rhythm, s1 and s2 normal, no murmur appreciated. Resp: Clear to auscultation bilaterally, no rhonchi, rales, wheezing or rubs. Integumentary: [place], warm, and dry, red, raised, painful, vesicular rash with a erythemic base to the chin, right cheek, right latter-day area, and right forehead exceeding into the hairline. No visual lesions near the orbit of the eye Course Course Emergency Course: Portions of this record may have been created with voice recognition software. Level of Care: Express Care Visit Vital Signs Vital signs: Vital Signs Temperature 36.6 C 08/11/24 08:34 Pulse Rate 90 08/11/24 08:34 Respiratory Rate 16 08/11/24 08:34 Blood Pressure 146/95 H 08/11/24 08:34 Pulse Oximetry 99 08/11/24 08:34 Temperature 36.6 C 08/11/24 08:34 Pulse Rate 90 08/11/24 08:34 Respiratory Rate 16 08/11/24 08:34 Blood Pressure 146/95 H 08/11/24 08:34 Pulse Oximetry 99 08/11/24 08:34 Vital signs reviewed MDM - Skin/Abscess/Foreign Bdy MDM Narrative Medical decision making narrative: At the time of visit patient is resting comfortably on the exam table. Patient appears to be nontoxic. Plan: I suspect patient has herpes zoster. Prescription for Valtrex was sent to the pharmacy. She denies any visual changes or eye pain. No obvious lesions near the right eye. Explained that she needed to be re-evaluated if she starts to have visual changes or pain in the eye. Supportive measures were discussed with the patient and they voiced understanding discharge instructions and agrees to treatment plan. Return precautions reviewed Differential Diagnosis Differential diagnosis: Likely abscess of skin or subcutaneous tissue, viral exanthem, dermatophytosis, urticaria, herpes zoster, allergic reaction to drug, cellulitis, eczema, insect bites, impetigo and contact dermatitis Discharge Plan Discharge Clinical Impression: Shingles Patient Disposition: Home, Self-Care Condition: Stable Instructions: Antibiotic Form, Shingles (ED) Additional Instructions: I suspect you have shingles on the right side of your face. Keep area clean and dry Take Valtrex as prescribed You are considered contagious until all the vesicular lesions are dried up/scabbed Avoid contact with immunocompromised people or persons. May take Tylenol/Motrin as needed for pain Follow-up with your primary care doctor next week Prescriptions: New valacyclovir [Valtrex] 1 gram tablet 1,000 mg PO Q8H 7 Days Qty: 21 0RF No Action Novolin 70/30 U-100 Insulin 100 unit/mL (70-30) suspension SUBCUT latanoprost 0.005 % drops 1 drp EACH EYE DAILY gabapentin 300 mg capsule 600 mg PO TID Qty: 540 1RF Rx Instructions: 2 capsules in the AM, 2 capsules at Noon, 1 capsule in PM. timolol 0.5 % drops 1 drp EACH EYE DAILY Novolin 70/30 U-100 Insulin 100 unit/mL (70-30) suspension See Rx Instructions .ROUTE .COMPLEX Dose Instruction: INJECT 15 UNITS SUBCUTANEOUSLY ONCE DAILY IN THE MORNING AND 10 UNITS EACH NIGHT Rx Instructions: INJECT 25 UNITS SUBCUTANEOUSLY ONCE DAILY IN THE MORNING AND 15 UNITS EACH NIGHT metoprolol succinate 100 mg tablet extended release 24 hr 150 mg PO DAILY atorvastatin 40 mg tablet 40 mg PO QHS multivitamin [Daily Multivitamin] Tablet 1 tablet PO DAILY vitamin B complex [B Complex-Vitamin B12] Tablet 1 tablet PO DAILY magnesium 250 mg Tablet 250 mg PO DAILY calcium citrate [Citracal] 200 mg (950 mg) Tablet 200 mg PO DAILY cholecalciferol (vitamin D3) 25 mcg (1,000 unit) Tablet 25 mcg PO DAILY aspirin 81 mg Capsule 81 mg PO DAILY blood sugar diagnostic Strip 1 strip miscellaneous BID Qty: 100 11RF levothyroxine 50 mcg tablet 50 mcg PO DAILY Qty: 90 1RF lisinopril 40 mg tablet 40 mg PO DAILY Qty: 90 1RF (DME) lancets [OneTouch Delica Plus Lancet] 33 gauge misc See Rx Instructions .Route Qty: 100 1RF Rx Instructions: Use to check blood sugars twice daily glimepiride 4 mg tablet 4 mg PO DAILY Qty: 90 1RF indapamide 1.25 mg tablet 1.25 mg PO DAILY Qty: 90 1RF (DME) insulin syringe-needle U-100 [BD Veo Insulin Syringe UF] 1/2 mL 31 gauge x 15/64 syringe See Rx Instructions .ROUTE .COMPLEX Qty: 100 1RF Dose Instruction: USE DIRECTED Rx Instructions: Use with Novolin Xarelto 20 mg tablet 20 mg PO HS Qty: 90 1RF alprazolam 0.5 mg tablet 0.5 mg PO BID PRN (Reason: anxiety) Qty: 60 1RF diltiazem HCl 180 mg capsule,extended release 24 hr 180 mg PO DAILY Qty: 90 1RF (DME) OneTouch Ultra Test Strip See Rx Instructions .Route Qty: 100 1RF Rx Instructions: Use to check blood sugars twice daily Follow-up/Referrals: Carlton Cloud MD [Primary Care Provider] - Time of Disposition: 08:47 Quality NIHSS Nursing Documentation ED NIHSS nursing documentation: reviewed/agree
== END 2024-08-11 08:48 | disposition home or self-care (01) ==
PROVIDERS: Emergency Provider Nurse Practitioner Family; PCP Family Medicine
DX: B02.9 Zoster without complications (principal); Z87.891 Personal history of nicotine dependence; I12.9 Hypertensive chronic kidney disease with stage 1 through stage 4 chronic kidney disease, or unspecified chronic kidney disease; E11.22 Type 2 diabetes mellitus with diabetic chronic kidney disease; N18.30 Chronic kidney disease, stage 3 unspecified; Z79.4 Long term (current) use of insulin; I25.10 Atherosclerotic heart disease of native coronary artery without angina pectoris; E03.9 Hypothyroidism, unspecified; E78.2 Mixed hyperlipidemia; I48.0 Paroxysmal atrial fibrillation; E11.42 Type 2 diabetes mellitus with diabetic polyneuropathy; Z85.118 Personal history of other malignant neoplasm of bronchus and lung; Z95.5 Presence of coronary angioplasty implant and graft; Z90.2 Acquired absence of lung [part of]; Z90.89 Acquired absence of other organs; Z96.651 Presence of right artificial knee joint; Z79.82 Long term (current) use of aspirin
CPT/HCPCS: 99213; G0463

== ENCOUNTER 2024-08-23 10:34 | Outpatient (CLI) | payer MEDICARE, SELFPAY ==
[2024-08-23 13:33] LABS: Iron 128 ug/dL (37-170)
[2024-08-23 13:44] LABS: Percent Iron Saturation 31 % (20-50); TOTAL IRON BINDING CAPACITY 415 ug/dL (261-462)
[2024-08-23 14:01] LABS: Alanine Aminotransferase 58 U/L (6-35); Alkaline Phosphatase 155 U/L (38-126); Anion Gap 4 mmol/L (4-12); Aspartate Amino Transferase 66 U/L (14-36); Bilirubin,Total 0.7 mg/dL (0.2-1.3); Blood Urea Nitrogen 34 mg/dL (7-17); Calcium 9.7 mg/dL (8.4-10.2); Carbon Dioxide 29 mmol/L (22-30); Chloride 107 mmol/L (98-107); Estimated Glomerular Filt Rate 60; Glucose 182 mg/dL (65-110); Potassium 4.3 mmol/L (3.4-5.0); Sodium 140 mmol/L (137-145)
[2024-08-24 08:25] LABS: GGT 37 U/L (3-65)
[2024-08-24 08:49] LABS: Ceruloplasmin 28 mg/dL (14-48)
[2024-08-27 22:04] LABS: Actin Antibody (IgG) <20 U (<20)
[2024-08-28 14:39] LABS: Mitochondrial (M2) Ab (IgG) <20.0 U
[2024-08-29 16:37] LABS: Anti Nuclear Antibody Pattern Nuclear, Homogeneous
[2024-08-29 21:14] LABS: LKM 1 Antibody <=20.0 U (<=20.0)
[2024-09-01 22:53] LABS: ALT 44 U/L (6-29); Alpha-2-Macroglobulin 235 mg/dL (106-279); Apolipoprotein A1 124 mg/dL (101-198); Fibrosis Score 0.44; Fibrosis Stage F1-F2; GGT 39 U/L (3-65); Haptoglobin 145 mg/dL (43-212); Necroinflammat Act Grade A0-A1; Reference ID 5258658; Total Bilirubin 0.4 mg/dL (0.2-1.2)
== END 2024-08-23 10:35 | disposition home or self-care (01) ==
PROVIDERS: PCP Family Medicine; Visit Provider Nurse Practitioner Family
DX: R74.8 Abnormal levels of other serum enzymes (principal)
CPT/HCPCS: 36415; 80053; 81596; 82104; 82390; 82728; 82977; 83520; 83540; 83550; 86038; 86039; 86364; 86376

== ENCOUNTER 2024-09-25 08:03 | Outpatient (CLI) | payer MEDICARE, SELFPAY ==
--- NOTE | ~2024-09-25 | US_ITS ---
EXAMINATION: US right upper quadrant DATE: 09/25/2024 08:40 INDICATION: Abnormal liver enzymes TECHNIQUE: Multiple grayscale and Doppler ultrasound images of the abdomen were obtained. COMPARISON: 09/24/2015 FINDINGS: Chronic mild dilation of the main pancreatic duct which measures up to and 3 mm at the junction of th e body and tail the pancreas. The visualized pancreas is otherwise normal in appearance. The distal p ancreatic tail is not visualized. The visualized cephalad to mid inferior vena cava and aorta are nor mal. Liver has normal echogenicity and contour, with a smooth surface. No liver lesion identified. No intrahepatic biliary duct dilation suspected. Portal venous flow was seen in the hepatopetal, normal direction and has normal Doppler waveform. The gallbladder is normal in appearance. There is no cho lelithiasis. The common bile duct measures 4 mm, which is normal. IMPRESSION: 1. 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 2. Otherwise unremarkable right upper quadrant ultrasound with no intra or extra hepatic biliary duct al dilation. Reviewed, dictated and finalized at location B. [facility] [employer]ER IMPRESSION: 1. 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 2. Otherwise unremarkable right upper quadrant ultrasound with no intra or extr a hepatic biliary ductal dilation.
== END 2024-09-25 08:04 | disposition home or self-care (01) ==
LOC: ANHIMG 08:04
PROVIDERS: PCP Family Medicine; Visit Provider Student in an Organized Health Care Education/Training Program
DX: K86.89 Other specified diseases of pancreas (principal); R74.8 Abnormal levels of other serum enzymes
CPT/HCPCS: 76705

== ENCOUNTER 2024-11-11 08:33 | Outpatient (CLI) | payer MEDICARE, SELFPAY | END 2024-11-11 08:34 | disposition home or self-care (01) | PROVIDERS: PCP Family Medicine; Visit Provider Nurse Practitioner Family | DX: K86.89 Other specified diseases of pancreas (principal); K83.8 Other specified diseases of biliary tract; R22.2 Localized swelling, mass and lump, trunk; J90 Pleural effusion, not elsewhere classified; J84.9 Interstitial pulmonary disease, unspecified | CPT/HCPCS: 74183; A9579 ==

== ENCOUNTER 2024-11-26 10:50 | Outpatient (CLI) | payer MEDICARE, SELFPAY ==
--- OUTSIDE RECORDS SUMMARY | 2024-11-26 13:17 | XMS_ITS | Clinical Summary ---
Author Organization [facility] Address [address] [place] [address] Care Team Providers Care Cast Shell Grinder Name Role Phone Sadia Cloud MD Primary Care Provider Allergies No known active allergies Medications ALPRAZolam (XANAX) 0.5 mg tablet Take 0.5 mg by mouth nightly as needed for Anxiety. Active gabapentin (NEURONTIN) 300 mg capsule Take 1,500 mg by mouth daily. Active glimepiride (AMARYL) 4 mg tablet Take 4 mg by mouth daily with breakfast. Active indapamide (LOZOL) 1.25 mg tablet Take 1.25 mg by mouth daily flyer maker. Active lisinopril (PRINIVIL) 20 mg tablet Take 20 mg by mouth 2 times daily . Active metoprolol tartrate (LOPRESSOR) 100 mg tablet Take 100 mg by mouth daily. Active levothyroxine 75 mcg tablet Take 75 mcg by mouth daily flyer maker. Active rivaroxaban (XARELTO) 20 mg Tablet Take 20 mg by mouth daily. Active aspirin (ECOTRIN EC) 81 mg Tablet, Delayed Release (E.C.) Take 81 mg by mouth daily. Active glucosamine-ch ondroitin (ARTHX DS) 500-400 mg Capsule Take 2 Capsule by mouth. Active magnesium oxide 250 mg Tablet Take 250 mg by mouth daily. Active cholecalcifero l, vitamin D3, 1,000 unit Take by mouth. Acti ve multivitamin (DAILY-KVNG) tablet Take 1 Tablet by mouth daily. Active diltiaZEM (CARDIZEM LA) 180 mg Extended Release 24 hour tablet Take 180 mg by mouth daily. Active nitroglycerin (NITROSTAT) 0.4 mg Tablet, Sublingual nitroglycerin 0.4 mg sublingual tablet Active metoprolol succinate (TOPROL XL) 100 mg Extended Release 24 hour tablet metoprolol succinate ER 100 mg tablet,extended release 24 hr TAKE 1 TABLET BY MOUTH ONCE DAILY Active ONETOUCH ULTRASOFT LANCETS USE CHECK BLOOD GLUCOSE TWICE DAILY NEEDED 0 Active Calcium Cmb 2-D3-Min [id number] (Citracal + Bone Density) 300-200-13.5 mg-unit-mg Tablet Citracal Active Cyanocobalamin -Cobamamide (B12) 5,000-100 mcg Lozenge B12 Active OneTouch Ultra Blue Test Strip Strip USE STRIP TO CHECK GLUCOSE TWICE DAILY 0 Active atorvastatin (LIPITOR) 40 mg tablet Take 1 tablet by mouth once daily 1 Active Active Problems Problem Noted Date Diagnosed Date Meningioma 11/13/2019 Malignant neoplasm of unspec ified part of left bronchus or lung 11/01/2019 Type 2 diabetes mellitus wit hout complication, without long-term current use of insulin 11/01/2019 Pleural effusion 08/16/2017 Resolved Problems Problem Noted Date Diagnosed Date Resolved Date History of malignant neoplasm of lung 09/28/2016 05/02/2020 Family History Medical History Relation Name Comments Heart Disease Brother Heart Disease Father Diabetes Mother Heart Disease Mother Heart Disease Sister Relation Name Status Comments Brother Alive Father Mother Sister Alive Social History Tobacco Use Types Packs/Day Years Used Date Smoking Tobacco: Former Cigarettes Q uit: 12/11/1985 Smokeless Tobacco: Never Tobacco Cessation:Counseling Given: No Alcohol Use Standard Drinks/Week Comments No 0 (1 standard drink = 0.6 oz pur e alcohol) Comments No Sex and Gender Information Value Date Recorded Sex Assigned at Not on file Legal Sex Female 10:[address] Gender Identity Not on file Sexual Orientation Not on file Last Filed Vital Signs Vital Sign Reading Time Taken Comments Blood Pressure 162/58 06/09/2023 9:39 AM CDT Pulse 77 06/09/2023 9:37 AM CDT Temperature 36.3 C (97.3 F) 06/09/2023 9:37 AM CDT Respiratory Rate 10 06/09/2023 9:37 AM CDT Oxygen Saturation 98% 06/09/2023 9:37 AM CDT Inhaled Oxygen Concentration - - Weight 83 kg (183 lb) 05/29/2021 9:37 AM CDT Height 167.6 cm (5' 6 ) 05/29/2021 9:37 AM CDT Body Mass Index 29.54 05/29/2021 9:37 AM CDT Plan of Treatment Health Maintenance Due Date Last Done Comments DIABETES ANNUAL FOOT EXAM 1962 DIABETES MICROALBUMIN ANNUAL SCREEN 1962 LDL CHOLESTEROL ANNUAL 1962 DTAP/TDAP/TD VACCINES (1 - Tdap) 1963 PNEUMOCOCCAL VACCINE 50+ YEA RS (1 of 2 - PCV) 1963 OSTEOPOROSIS SCREENING 2009 RSV VACCINE (60+ or ) (1 - 1-dose 75+ series) 2019 DIABETES ANNUAL RETINAL EXAM 04/21/202306/2022, 04/08/2021, 03/26/2020, Additional history exists DIABETES HBA1C Q 6 MONTHS 01/18/20242022, 11/28/2022, 02/19/2022, Additional history exists INFLUENZA VACCINE (#1) 2024 05/29/2019, 2017 COVID-19 Vaccine (3 - 2023-2 5 season) 2024 11/11/2020, 10/09/2020 ZOSTER VACCINE Completed 11/10/2018, 07/24/2018 Insurance MEDICARE PART A AND B BCBS SUPP [facility] SUPP MEDICARE PART A AND B Care Teams Cast Shell Grinder Relationship Specialty Start Date End Date Sadia Cloud MD [address] [place] [id number] PCP - General Family Practice 06/09/23
--- OUTSIDE RECORDS SUMMARY | 2024-11-26 13:17 | XMS_ITS | Referral Summary ---
Author Organization [facility] [place] [address] Address [address] [place] [address] Care Team Providers Care Flight Control Tower Operator Name Role Phone Sadia Cloud MD Primary Care Provider Encounters Date Type Department Care Team Description 10/17/[address] [facility] Vascular at [address] [id number] Harish Paulino MD PVD (peripheral vascular disease) (Primary Dx) 10/17/2024 9:30 AM ORACLE PROGRAMMER Office Visit [facility] Vascular at [address] [id number] Krystle Grant NP Atherosclerosis of artery of extremity with intermittent claudication (Primary Dx); Type 2 diabetes mellitus with diabetic peripheral angiopathy without gangrene, with long-term current use of insulin (HCC); Hypertension associated with diabetes (HCC) 10/08/2024 1:00 PM ORACLE PROGRAMMER Ancillary Procedure [facility] Vascular and Vein Surgery at [address] [id number] PAD (peripheral artery disease) 10/08/2024 1:00 PM ORACLE PROGRAMMER Ancillary Procedure [facility] Vascular and Vein Surgery at [address] [place] [address] PVD (peripheral vascular disease) 09/21/[address] [facility] Vascular and Vein Surgery [address] [facility] [address] [place] [phone] Harish Paulino MD PAD (peripheral artery disease) (Primary Dx) from Last 3 Months Allergies No known active allergies Medications glimepiride (AMARYL) 4 mg tablet take 1 tablet (4MG) by oral route every day 0 07/05/20 12 Active multivitamin-m ob-cmmz-KZ-vit K (MULTI FOR HER) 18 mg iron-600 mcg-40 mcg capsule take as directed 0 07/05/20 12 Active rivaroxaban (XARELTO) tablet take 1 tablet by oral route every day with the evening meal 0 0 07/20/20 13 Active aspirin (ASPIR-81) 81 mg tablet take 1 tablet by oral route every day 0 0 02/21/20 15 Active lisinopril (PRINIVIL,ZEST RIL) 20 mg tablet Take 2 tablets (40 mg total) by mouth daily. 30 tablet 11 08/12/20 17 Active diltiazem LA (CARDIZEM LA) 180 mg 24 hr tablet Take 1 tablet (180 mg total) by mouth Active magnesium oxide (MAG-OX) 250 mg (150.8 mg elemental) tabletIndicati ons:hypomagnes emia Take 1 tablet (250 mg total) by mouth daily Active OneTouch Ultra Blue Test Strip strip USE STRIP TO CHECK GLUCOSE TWICE DAILY 05/22/20 Active onetouch ultrasoft lancets USE TO CHECK GLUCOSE TWICE DAILY NEEDED 05/23/20 Active calcium citrate (CALCITRATE) 950 mg (200 mg of elemental calcium) tablet Take 1 tablet (950 mg total) by mouth daily Active gabapentin (NEURONTIN) 300 mg capsule Take 1 capsule (300 mg total) by mouth 5 (five) times a day Active vitamin B complex with C-folic acid (NEPHROCAP) 1 mg capsuleIndicat ions:Vitamin Deficiency Prevention Take 1 capsule by mouth daily Active ALPRAZolam (XANAX) 0.5 mg tablet Take 1 tablet (0.5 mg total) by mouth 2 (two) times a day as needed for anxiety 30 tablet 1 12/22/19 23 Active indapamide (LOZOL) 1.25 mg tablet Take 1 tablet (1.25 mg total) by mouth every morning 30 tablet 12/28/19 23 025 Active NovoLIN 70/30 100 unit/mL vial for injection 16 units subq before breakfast & 10 units subq before dinner. 12/28/19 23 Active nitroglycerin (NITROSTAT) 0.[address] 1 tablet (0.4 mg total) under the tongue every 5 (five) minutes as needed for chest pain 25 tablet 2 02/15/20 23 Active levothyroxine (SYNTHROID) 50 mcg tablet Take 1 tablet (50 mcg total) by mouth daily 07/22/20 23 Active cyanocobalamin (Vitamin B-12) 1,000 mcg tabletIndicati ons:Prevention of Vitamin B12 Deficiency Take 1 tablet (1,000 mcg total) by mouth daily Active cholecalcifero l 25 mcg (1,000 unit) tablet Take 1 tablet (1,000 Units total) by mouth daily Active latanoprost (XALATAN) 0.005 % ophthalmic solution 1 drop nightly 02/13/20 24 Active metoprolol XL (TOPROL-XL) 100 mg 24 hr tablet TAKE 1 & 1/2 (ONE & ONE-HALF) TABLETS BY MOUTH ONCE DAILY 135 tablet 09/13/19 25 Active atorvastatin (LIPITOR) 40 mg tablet Take 1 tablet by mouth once daily 90 tablet 10/30/19 25 Active atorvastatin (LIPITOR) 40 mg tablet Take 1 tablet by mouth once daily 90 tablet 08/06/20 24 025 Discontinued Active Problems Problem Noted Date Diagnosed Date Atherosclerosis of artery of extremity with intermittent claudication 10/18/2024 Assessment & Plan (10/18/2024 3:44 PM ORACLE PROGRAMMER): Impression: Patient is status post left femoral popliteal bypass graft with 1st and 2nd toe amputations in 2022. She denies any symptoms of claudication, ischemic rest pain or new open ulcerations to her lower extremities. Amputation sites remain healed. Bilateral lower extremities are warm with no new open ulcerations. Lower extremity arterial duplex reveals a patent bypass graft. Plan: Continue ongoing risk factor modifications. -continue aspirin and Xarelto. -patient to follow-up in 6 months for re-evaluation with repeat lower extremity arterial duplex. Encouraged patient make a sooner appointment if she develops any symptoms of claudication, ischemic rest pain or new open ulcerations. Enthesopathy of hip region 12/01/2023 Osteoarthritis 12/01/2023 Spinal stenosis of lumbar region 12/01/2023 Type 2 diabetes mellitus wit h diabetic peripheral angiopathy without gangrene, with long-term current use of insulin 09/30/2023 Assessment & Plan (10/18/2024 3:45 PM ORACLE PROGRAMMER): Impression: Chronic and stable. Plan: Continue glimepiride Assessment & Plan (09/30/2023 1:09 PM ORACLE PROGRAMMER): Impression: Chronic with good glucose control. Plan: Continue insulin Arthralgia of left knee 08/10/2023 Left great toe amputee 01/11/2023 Assessment & Plan (02/25/2023 11:34 AM CDT): Impression: Patient is status post left 1st thing 2nd toe amputation. Amputation site is nearly healed. No concern for infection. Plan: Continue daily dressing changes. -follow-up in 4 weeks for re-evaluation. Acute osteomyelitis of toe of left foot 12/10/19 Assessment & Plan (12/23/2022 1:11 PM CDT): Abx completed. DCP 12/28. Wound education to be provided to family 12/27. Assessment & Plan (12/20/2022 12:18 PM CDT): Doxy complete 12/22. Continue wound care. Vasc fu. Xarelto for DVT proph. Pain controlled with PRN [place]. Assessment & Plan (12/16/2022 12:44 PM CDT): Complete abx as ordered. Continue wound care as above. PT/OT. Assessment & Plan (12/13/2022 11:22 AM CDT): Pain well controlled. Was started on nadia Oxy but does not believe needs. Will d/c. Continue [place] PRN - reduce Tyl and change to PRN to help with Tyl dose also. Assessment & Plan (12/13/2022 8:38 AM CDT): Continue doxy until completed. Continue wound care. HTWB with shoe. Vasc f/u. Assessment & Plan (12/09/2022 5:17 PM CDT): Pt is s/p left 1st and 2nd toe amputation with debridement left foot on 12/02/[address] Monge Received vancomycin and cefepime later transition to doxycycline to complete 2 week course, till 12/22/22. Continue aggressive wound care. Therapies in place. Follow-up vascular outpatient Diabetes mellitus type 2 in nonobese 12/09/2022 Assessment & Plan (12/27/2022 12:03 PM CDT): Dc lispro - continue Novolin 70/30 16u qam + 10u qpm. Restart Metformin. Fu PCP. Assessment & Plan (12/20/2022 12:17 PM CDT): BS 102-207. Continue complex insulin regimen. Assessment & Plan (12/13/2022 8:39 AM CDT): BS 123-280, continue insulin regimen. Assessment & Plan (12/09/2022 5:29 PM CDT): A1c 7.3, BS 191-267. Continue Novolin 70/30 16 units bkfast, 10 units with dinner; lispro 5 units breakfast, 5 units lunch, 4 units dinner, glimepiride 4 mg, SSI. Monitor Accu-Cheks PAD (peripheral artery disease) 11/27/2022 Assessment & Plan (04/11/2024 9:50 AM CDT): Status post left fem-pop bypass and toe amputations, overall doing well. No recurrent claudication or wounds. Continue risk factor modification with ASA statin therapy and good blood sugar control follow up in 6 months for repeat noninvasives. Assessment & Plan (09/30/2023 1:07 PM ORACLE PROGRAMMER): Impression: Patient is status post left femoral popliteal bypass graft. Patient continues to complain of left lower extremity edema. She denies any symptoms of claudication or ischemic rest pain. Arterial duplex reveals a patent graft to left lower extremity. Plan: Continue ongoing risk factor modifications. -follow-up in 6 months for re-evaluation with repeat lower extremity arterial duplex. Assessment & Plan (02/25/2023 11:32 AM CDT): Impression: Patient is status post left external iliac and common femoral endarterectomy, left femoral popliteal bypass graft. Patient denies any symptoms of claudication, ischemic rest pain to her lower extremities. Patient does complain of reperfusion edema to her left lower extremity. Left lower extremity is warm, well perfused with palpable distal pulses. Plan: Continue ongoing risk factor modifications. -we will have patient follow-up in 6 months for re-evaluation with repeat arterial duplex. Assessment & Plan (12/27/2022 12:02 PM CDT): s/p left external and common femoral artery endarterectomy with pericardial patch angioplasty, Left femoral-popliteal bypass graft with 8 mm Propaten Robeline-Brandon on 12/02/[address] Monge. Ivon/sutures remain in place. Pain controlled. Continue gabapentin, norco PRN. HTWB with boot. Vascular did not comeover and see at [facility] [place] this week. Staff to make appt for this week for vascular to see outpt. Dtr to have wound care training today. Assessment & Plan (12/23/2022 1:09 PM CDT): s/p left external and common femoral artery endarterectomy with pericardial patch angioplasty, Left femoral-popliteal bypass graft with 8 mm Propaten Robeline-Brandon on 12/02/[address] Monge. Ivon/sutures remain in place. Increased nerve pain last night - could increase gabapentin if continues. JESSIE wrap left off today to see if helps. Nursing to contact vascular to for wound/staple removal. Assessment & Plan (12/20/2022 12:17 PM CDT): Vasc following. Continue wound care. HTWB with boot. Assessment & Plan (12/16/2022 12:43 PM CDT): Vasc came over and saw patient this week. Dressing changed. Want to leave ivon in place & continue packing daily. Will fu next week. No other concerns or complaints. Assessment & Plan (12/13/2022 11:27 AM CDT): s/p left external and common femoral artery endarterectomy with pericardial patch angioplasty, Left femoral-popliteal bypass graft with 8 mm Propaten Robeline-Brandon on 12/02/[address] Monge[address] SEE PAIN CONTROL ABOVE. [place] in place. Will have nursing contact for staple removal date. Assessment & Plan (12/09/2022 5:20 PM CDT): Pt is s/p left external and common femoral artery endarterectomy with pericardial patch angioplasty, Left femoral-popliteal bypass graft with 8 mm Propaten Robeline- Brandon on 12/02/[address] Monge. Continue wound care. On aspirin statin. Follow up was Vas outpatient Peripheral sensory neuropathy 11/27/2022 Assessment & Plan (12/09/2022 5:24 PM CDT): Symptoms controlled with gabapentin 600 mg b.i.d. Osteoarthritis of left knee 03/08/2022 Meningioma 11/13/2019 01/11/2023 Malignant neoplasm of unspec ified part of left bronchus or lung 11/01/2019 01/11/2023 Coronary artery disease invo lving [place] coronary artery of [place] heart without angina pectoris 08/22/2018 Assessment & Plan (12/09/2022 5:23 PM CDT): Denies any acute chest pain. Continue statin, aspirin, Im[facility] HTN 02/13/2018 Pleural effusion 08/16/2017 01/11/2023 Hypertension associated with diabetes 04/05/2017 Assessment & Plan (10/18/2024 3:45 PM ORACLE PROGRAMMER): Impression: Chronic with elevated blood pressure today. Patient remains asymptomatic. Plan: Recommend patient to monitor blood pressures at home and notify primary care provider for elevated blood pressure for further management. Assessment & Plan (04/11/2024 9:50 AM CDT): Stable continue lisinopril 20 mg Assessment & Plan (12/27/2022 12:03 PM CDT): BP fluctuates - on higher end today but is agitated with weekend care. Will Continue Toprol, Cardizem, Lisinopril. HCTZ to change back to Indapamine. Fu with PCP outpt 1 week to monitor BP. Assessment & Plan (12/20/2022 12:19 PM CDT): BP stable with mild fluctuations. Continue HCTZ, Cardizem, Lisinopril, Toprol. Assessment & Plan (12/16/2022 12:44 PM CDT): BP elevated today, has improved. Received bad new about daughters health and new dx of cancer today. Monitor. Assessment & Plan (12/13/2022 11:29 AM CDT): BP fluctuating. Elevated today. Continue Lisinopril, Toprol, HCTZ, Diltiazem. Assessment & Plan (12/13/2022 8:39 AM CDT): BP with mild fluctuations. Continue to monitor. No changes. Assessment & Plan (12/09/2022 5:23 PM CDT): Blood pressure with mild fluctuation, overall controlled. Continue Toprol-XL 150 mg, lisinopril 40 mg, HCTZ 12.5 mg. 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 T3 on the basis of a 1.5 cm primary with 2 separate foci of adenocarcinoma, each measuring 1 mm. A total of 9 lymph nodes were examined and all were uninvolved. All surgical margins were uninvolved with the closest margin of 2 mm; this margin was of 1 of the separate foci of adenocarcinoma and was parenchymal. There is no evidence of ALK gene rearrangement detected by FISH; positive for EGFR gene mutations, a missense mutation in exon 21 was detected. Mixed diabetic hyperlipidemi a associated with type 2 diabetes mellitus (CMS/HCC) 08/02/2016 Overview (12/18/2016): DM type 2 with diabetic dyslipidemia Assessment & Plan (09/30/2023 1:09 PM ORACLE PROGRAMMER): Impression: Chronic and stable. Plan: Continue Lipitor Assessment & Plan (12/09/2022 5:23 PM CDT): On Lipitor 40 mg daily Chronic anticoagulation 08/02/2016 Overview (12/18/2016): Chronic anticoagulation Other persistent atrial fibrillation 08/02/2016 Overview (12/18/2016): Chronic atrial fibrillation Assessment & Plan (04/11/2024 9:50 AM CDT): Stable continue Xarelto Assessment & Plan (12/09/2022 5:23 PM CDT): Rate controlled. Continue Xarelto 20 mg, Toprol-XL 150 mg History of myocardial infarction 08/02/2016 Overview (12/18/2016): H/O acute myocardial infarction Adenocarcinoma of lung 07/27/2016 Overview (12/23/2017): Description: -ARNULFO ground glass opacity s/p CT guided bx 06/11/16: well- differentiated lung adenocarcinoma, non-mucinous type; positive for EGFR gene mutation Resolved Problems Problem Noted Date Diagnosed Date Resolved Date Ulcer of left foot with fat layer exposed 11/27/2022 12/13/2022 Pain of left calf 11/27/2022 12/13/2022 Cellulitis and abscess of foot 11/27/2022 12/16/2022 Assessment & Plan (12/13/2022 8:38 AM CDT): SEE ABOVE Myalgia 04/05/2017 12/13/2022 Preoperative state 08/02/2016 3 Overview (12/18/2016): Preoperative cardiovascular examination Immunizations Immunization Administration Dates Next Due Influenza, Quadrivalent, Rec ombinant, Egg Free, Preservative Free, Intramuscular 05/29/2019 Influenza, Trivalent, High D ose, Split, Preservative Free, Intramuscular 05/11/2018 ZOSTER Recombinant 11/10/2018,07/24/2018 Social History Tobacco Use Types Packs/Day Years Used Date Smoking Tobacco: Former Cigarettes Smokeless Tobacco: Never Tobacco Cessation:Counseling Given: Not Answered Alcohol Use Standard Drinks/Week Comments No 0 (1 standard drink = 0.6 oz pur e alcohol) Social Connection and Isolat ion Panel [NHANES] Answer Date Recorded In a typical week, how many times do you talk on the phone with family, friends, or neighbors? More than three times a week 11/29/2022 How often do you get togethe r with friends or relatives? More than three times a week 11/29/2022 How often do you attend chur ch or synagogue services? More than 4 times per year 11/29/2022 Do you belong to any clubs o r organizations such as christianity groups, unions, fraternal or athletic groups, or school groups? Yes 11/29/2022 How often do you attend meet ings of the clubs or organizations you belong to? 1 to 4 times per year 11/29/2022 Are you , , di vorced, , never , or living with a partner? 11/29/2022 AUDIT-C Answer Date Recorded Q1: How often do you have a drink containing alcohol? Never 12/01/2022 Q2: How many drinks containi ng alcohol do you have on a typical day when you are drinking? Patient does not drink Q3: How often do you have si x or more drinks on one occasion? Never 12/01/2022 Overall Financial Resource Strain (CARDIA) Answe r Date Recorded How hard is it for you to pa y for the very basics like food, housing, medical care, and heating? Not hard at all 11/29/2022 PRAPARE - Transportation Answer Date Re corded In the past 12 months, has l ack of transportation kept you from medical appointments or from getting medications? No 11/11 In the past 12 months, has l ack of transportation kept you from meetings, work, or from getting things needed for daily living? No 11/29/2022 Personal Safety Answer Date Recorded Have you ever been in or are you currently in a harmful physical or emotional relationship or is someone making you feel afraid or unsafe? Denies 12/01/2022 Comments Unknown Sex and Gender Information Value Date Recorded Sex Assigned at Not on file Legal Sex Female 2:02 AM ORACLE PROGRAMMER Gender Identity Not on file Sexual Orientation Not on file Last Filed Vital Signs Vital Sign Reading Time Taken Comments Blood Pressure 195/84 10/17/2024 9:15 AM ORACLE PROGRAMMER Pulse 74 10/17/2024 9:15 AM ORACLE PROGRAMMER Temperature 36.4 C (97.5 F) 12/27/2022 11:50 AM CDT Respiratory Rate 16 12/27/2022 11:50 AM CDT Oxygen Saturation 99% 10/17/2024 9:15 AM ORACLE PROGRAMMER Inhaled Oxygen Concentration - - Weight 83.9 kg (185 lb) 10/17/2024 9:15 AM ORACLE PROGRAMMER Height 167.6 cm (5' 6 ) 10/17/2024 9:15 AM ORACLE PROGRAMMER Body Mass Index 29.86 10/17/2024 9:15 AM ORACLE PROGRAMMER Plan of Treatment Not on file Medical Devices Implanted Type Area Damage Adjuster Device Identifier Shelf Expiration Date Model / Serial / Lot [employer] Weck Horizon 24 Cartridge Ligate Triangulate Cross Section Heart [id number] - [id number] Implanted:Qty: 2 on 12/02/2022 by Zeeshan Monge MD at [facility] Left: Femur [employer] [id number] / / [employer] Robeline 8mm 80cm Stretch Thin Wall Graft Vascular Heparin Propaten [id number] - [id number] - [id number] Implanted:Qty: 1 on 12/02/2022 by Zeeshan Monge MD at [facility] Left: Femur [employer] [id number] 03/26/2026 [id number] / [id number] [facility] / MicroTransponder Patch Vascuguard 0.88cm [id number] - [id number] Implanted:Qty: 1 on 12/02/2022 by Zeeshan Monge MD at [facility] MicroTransponder [id number] / / [id number] Procedures Procedure Name Priority Date/Time Associated Diagnosis Comments US WILFRED Schedule Routine, Read Routine (OP Routine) 10/08/2024 1:42 PM ORACLE PROGRAMMER PAD (peripheral artery disease) US ARTERIAL DUPLEX LOWER EXTREMITY LEFT LIMITED Schedule Routine, Read Routine (OP Routine) 10/08/2024 1:38 PM ORACLE PROGRAMMER PVD (peripheral vascular disease) POCT LIPID PANEL Routine 02/14/2023 9:48 AM CDT Mixed diabetic hyperlipidemia associated with type 2 diabetes mellitus (CMS/HCC) (HCC) EGFR Routine 12/27/2022 6:43 AM CDT HEMOGLOBIN A1C Routine 11/27/2022 9:56 PM CDT from Last 3 Months or Most Recently Relevant to Health Maintenance Results * US WILFRED (10/08/2024 1:42 PM ORACLE PROGRAMMER) LV EF % CONS SCIMAGE Anatomical Region Laterality Modality Vascular N/A Ultrasound 10/08/2024 12:4 5 PM ORACLE PROGRAMMER Narrative 10/10/2024 1:15 PM ORACLE PROGRAMMER Vascular & Vein Surgery [address] [facility] [place] [address] Lower Extremity Arterial Doppler Report Patient Name: WANDA GARCÍA K : 1945 Study Date: 10/08/2024 12:45:00 PM Gender: F Banana Carrier: Shira Zheng RVT Location: [facility] Ref Provider: HARISH PAULINO Quality: Adequate Order Provider: CROW,HARISH PROCEDURES: Arterial Report: Ankle - Brachial Index Doppler exam. INDICATIONS: S/P Lt fem-pop BPG 12/02/22, L1 & L2 amp. HISTORY: Hypertension. Hyperlipidemia. Diabetic. Coronary artery disease S/P stents. Afib. Lung CA. Former smoker. COMPARISONS: The previous exam was completed on 04/11/24. Compared to prior WILFRED is decreased on the right at the level of the posterior tibial artery. MEASUREMENTS: Right Value Left Value Rt Brachial Pressure 193 mmHg Lt Brachial Pressure 191 mmHg Rt IT ASSOCIATE Pressure 93 mmHg Lt IT ASSOCIATE Pressure >230 mmHg Rt DPA Pressure >230 mmHg Lt DPA Pressure >230 mmHg Rt PT WILFRED Resting 0.48 Lt PT WILFRED Resting >1.19 Rt DP WILFRED Resting >1.19 Lt DP WILFRED Resting >1.19 - FINDINGS: Right Posterior Tibial Artery Analysis: The posterior tibial waveform is monophasic. Right Anterior Tibial Artery Analysis: The anterior tibial waveform is monophasic. Left Posterior Tibial Artery Analysis: The posterior tibial waveform is biphasic. Left Anterior Tibial Artery Analysis: The anterior tibial waveform is biphasic. CONCLUSIONS: 1. Ankle-brachial index of <0.5 is consistent with rest pain and severe arterial disease in the right lower extremity. 2. Ankle-brachial index of >1.3 is non-compressible which is consistent with arterial calcifications, thus the ankle/brachial index is not obtainable in the left lower extremity. ATTESTATION: I have reviewed and interpreted the pertinent images and measurements of this study. I attest to the conclusions in the final report that is provided above. Electronically Signed By: Harish Paulino MD 10/10/2024 1:14:51 PM ORACLE PROGRAMMER Procedure Note Harish Paulino MD - 10/10/2024 Vascular & Vein Surgery [address] [place] [address] Lower Extremity Arterial Doppler Report Patient Name: WANDA GARCÍA K : 1945 Study Date: 10/08/2024 12:45:00 PM Gender: F Banana Carrier: Shira Zheng RVT Location: [facility] Ref Provider: HARISH PAULINO Quality: Adequate Order Provider: HARISH PAULINO PROCEDURES: Arterial Report: Ankle - Brachial Index Doppler exam. INDICATIONS: S/P Lt fem-pop BPG 12/02/22, L1 & L2 amp. HISTORY: Hypertension. Hyperlipidemia. Diabetic. Coronary artery disease S/Pstents. Afib. Lung CA. Former smoker. COMPARISONS: The previous exam was completed on 04/11/24. Compared to prior WILFRED is decreased on the right at the level of theposterior tibial artery. MEASUREMENTS: Right Value Left Value Rt Brachial Pressure 193 mmHg Lt Brachial Pressure 191 mmHg Rt IT ASSOCIATE Pressure 93 mmHg Lt IT ASSOCIATE Pressure >230 mmHg Rt DPA Pressure >230 mmHg Lt DPA Pressure >230 mmHg Rt PT WILFRED Resting 0.48 Lt PT WILFRED Resting >1.19 Rt DP WILFRED Resting >1.19 Lt DP WILFRED Resting >1.19 - FINDINGS: Right Posterior Tibial Artery Analysis: The posterior tibial waveform is monophasic. Right Anterior Tibial Artery Analysis: The anterior tibial waveform is monophasic. Left Posterior Tibial Artery Analysis: The posterior tibial waveform is biphasic. Left Anterior Tibial Artery Analysis: The anterior tibial waveform is biphasic. CONCLUSIONS: 1. Ankle-brachial index of <0.5 is consistent with rest pain and severearterial disease in the right lower extremity. 2. Ankle-brachial index of >1.3 is non-compressible which is consistentwith arterial calcifications, thus the ankle/brachial index is not obtainable in theleft lower extremity. ATTESTATION: I have reviewed and interpreted the pertinent images and measurements ofthis study. I attest to the conclusions in the final report that is provided above. Electronically Signed By: Harish Paulino MD 10/10/2024 1:14:51 PM ORACLE PROGRAMMER us Harish Paulino MD IMG US PROCEDURES Final Result * US Arterial Duplex Lower Extremity Left Limited (10/08/2024 1:38 PM ORACLE PROGRAMMER) LV EF % CONS SCIMAGE Anatomical Region Laterality Modality Vascular Left Ultrasound 10/08/2024 12:5 8 PM ORACLE PROGRAMMER Narrative 10/10/2024 1:15 PM ORACLE PROGRAMMER Vascular & [facility] [address] [place] [address] Lower Extremity Arterial Duplex Report Patient Name: WANDA GARCÍA K : 1945 (79y ) Gender: F Study Date: 10/08/2024 12:58:56 PM Ht(Inch): Wt(Lb): BSA: Banana Carrier: BORIS Location: [facility] Order Provider: HARISH PAULINO Quality: Adequate Ref Provider: HARISH PAULINO PROCEDURES: Arterial Report: A non-invasive vascular imaging study of the left lower extremity arteries and bypass graft was performed using B-mode ultrasound, color flow, and spectral Doppler. INDICATIONS: S/P Lt fem-pop BPG 12/02/22; L1 & L2 amp. HISTORY: Hypertension. Hyperlipidemia. Diabetic. Coronary artery disease S/P stents. Afib. Lung CA. Former smoker. COMPARISONS: No change compared to prior study. The previous exam was completed on 04/11/24. MEASUREMENTS: Left Value Lt FUSING FURNACE LOADER Dst PSV 304.00 cm/sec Lt Ant Tibial Prx PSV 106.00 cm/sec Lt Post Tibial Prx PSV 64.00 cm/sec Lt Post Tibial Mid PSV 81.00 cm/sec Lt Peroneal Prx PSV 0.00 cm/sec Lt Peroneal Mid PSV 63.00 cm/sec - GRAFTS: Left Value Location Lt fem-pop Lt BPG Inflow PSV 286.00 cm/sec Lt Anast Prx PSV 340.00 cm/sec Lt BPG Prx PSV 50.00 cm/sec Lt BPG Mid PSV 34.00 cm/sec Lt BPG Dst PSV 46.00 cm/sec Lt Anast Dst PSV 30.00 cm/sec Lt BPG Outflow PSV 83.00 cm/sec - FINDINGS: Left: Biphasic arteries include the left common femoral artery, anterior tibial artery and posterior tibial artery. Monophasic arteries include the left mid peroneal artery. Increased velocities noted of the left common femoral artery. There is occlusion of the left proximal peroneal artery versus calcified plaque shadowing. Bypass Graft 1: The bypass graft is located in the left femoral-popliteal artery. Patent lower extremity bypass graft with no evidence of stenosis. Elevated PSV 340 cm/s at proximal anastomosis with decreased velocities throughout graft. Homogeneous plaque noted at distal graft with mid to distal perigraft hypoechoic collection. CONCLUSION: 1. There is moderate 50-75% stenosis in the left common femoral artery. 2. Patent left common femoral artery to popliteal artery bypass. Elevated velocities at the proximal anastomosis with decreased velocities representing anastomotic stenosis. ATTESTATION: I have reviewed and interpreted the pertinent images and measurements of this study. I attest to the conclusions in the final report that is provided above. Electronically Signed By: Harish Paulino MD 10/10/2024 1:14:21 PM ORACLE PROGRAMMER Procedure Note Harish Paulino MD - 10/10/2024 [facility] [address] [place] [id number] Lower Extremity Arterial Duplex Report Patient Name: WANDA GARCÍA K : 1945 (79y ) Gender: F Study Date: 10/08/2024 12:58:56 PM Ht(Inch): Wt(Lb): BSA: Banana Carrier: Location: [facility] Order Provider: HARISH PAULINO Quality: Adequate Ref Provider: HARISH PAULINO PROCEDURES: Arterial Report: A non-invasive vascular imaging study of the left lowerextremity arteries and bypass graft was performed using B-mode ultrasound, colorflow, and spectral Doppler. INDICATIONS: S/P Lt fem-pop BPG 12/02/22; L1 & L2 amp. HISTORY: Hypertension. Hyperlipidemia. Diabetic. Coronary artery disease S/Pstents. Afib. Lung CA. Former smoker. COMPARISONS: No change compared to prior study. The previous exam was completed on04/11/24. MEASUREMENTS: Left Value Lt FUSING FURNACE LOADER Dst PSV 304.00 cm/sec Lt Ant Tibial Prx PSV 106.00 cm/sec Lt Post Tibial Prx PSV 64.00 cm/sec Lt Post Tibial Mid PSV 81.00 cm/sec Lt Peroneal Prx PSV 0.00 cm/sec Lt Peroneal Mid PSV 63.00 cm/sec - GRAFTS: Left Value Location Lt fem-pop Lt BPG Inflow PSV 286.00 cm/sec Lt Anast Prx PSV 340.00 cm/sec Lt BPG Prx PSV 50.00 cm/sec Lt BPG Mid PSV 34.00 cm/sec Lt BPG Dst PSV 46.00 cm/sec Lt Anast Dst PSV 30.00 cm/sec Lt BPG Outflow PSV 83.00 cm/sec - FINDINGS: Left: Biphasic arteries include the left common femoral artery, anteriortibial artery and posterior tibial artery. Monophasic arteries include the left midperoneal artery. Increased velocities noted of the left common femoral artery. There isocclusion of the left proximal peroneal artery versus calcified plaque shadowing. Bypass Graft 1: The bypass graft is located in the left femoral-poplitealartery. Patent lower extremity bypass graft with no evidence of stenosis. Elevated OIU680 cm/s at proximal anastomosis with decreased velocities throughout graft.Homogeneous plaque noted at distal graft with mid to distal perigraft hypoechoic collection. CONCLUSION: 1. There is moderate 50-75% stenosis in the left common femoral artery. 2. Patent left common femoral artery to popliteal artery bypass. Elevatedvelocities at the proximal anastomosis with decreased velocities representinganastomotic stenosis. ATTESTATION: I have reviewed and interpreted the pertinent images and measurements ofthis study. I attest to the conclusions in the final report that is provided above. Electronically Signed By: Harish Paulino MD 10/10/2024 1:14:21 PM ORACLE PROGRAMMER Harish Paulino MD IMG US PROCEDURES Final Result * POCT lipid panel (02/14/2023 9:48 AM CDT) Cholesterol, POC 108 mg/dL Comment:GLU = 86 HDL, POC 26 mg/dL Triglycerides, POC 130 mg/dL LDL Cholesterol POC 56 mg/dL Chol/HDL Ratio, POC 4.1 Non-HDL Cholesterol, POC 82 mg/dL Cholesterol Total, POC 108 mg/dL Capillary blood 02/14/2023 9 :48 AM CDT David Garay MD POINT OF CARE TEST ORDER OCTAVIO Final Result * eGFR (12/27/2022 6:43 AM CDT) eGFR 65 mL/min/1. 73 m2 ESSENCENER Comment: Interpretive Data Reference Interval Normal >/= 90 mL/min/1.73m2 Mildly decreased* 60 - 89 mL/min/1.73m2 Mildly to moderately decreased 45 - 59 mL/min/1.73m2 Moderately to severely decreased 30 - 44 mL/min/1.73m2 Severely decreased 15 - 29 mL/min/1.73m2 Kidney Failure < 15 mL/min/1.73m2 *Relative to young adult level Estimated glomerular filtration rate is determined by the 2020 CKD-EPI equation recommended by the National Kidney Foundation (A Unifying Approach to GFR Estimation: Recommendations of the NKF-ASK Task Force on Reassessing the Inclusion of Race in Diagnosing Kidney Disease, JASN 2020). The CKD-EPI equation should not be used for patients with unstable renal function and has not been validated in children and those over 70. Current interpretive data was last reviewed 2021. Testing performed by: [facility], [address] [place] [address]., [id number] Blood 12/27/2022 6:43 AM CDT 12/27/2022 7:02 AM CDT us Birgit Leon NP LAB BLOOD ORDERABLES Final Result Performing Organization Address [facility] Co de Phone Number [place] MIGUEL [address] [place] [address] * (ABNORMAL) Hemoglobin A1c (11/27/2022 9:56 PM CDT) Hgb A1C 7.3(H) 4.0 - 5.6 % [place] Estimated Average Glucose 163 mg/dL [place] Comment: The ADA recommends reporting an estimated Average Glucose (eAG) with all Hemoglobin A1c results using the equation derived from a study of 507 normal and diabetic adults. Minority populations were underrepresented and children were not included. (Diabetes Care 31:9282-1944, 2008). The eAG is not equivalent to a fasting glucose. Blood 11/27/2022 9:56 PM CDT 11/27/2022 10:09 PM CDT us Deepika Roman MD LAB BLOOD ORDERABLES Final Re sult Performing Organization Address [facility] Co de Phone Number [place] [address] [place] [phone] from Last 3 Months or Most Recently Relevant to Health Maintenance Insurance MEDICARE [facility] MEDICARE SUPPLEMENT MEDICARE [facility] Advance Directives For more information, please contact: [phone] * Full Code (Latest Code Status on File) Date Activated Date Inactivated Comments 11/27/2022 8:45 PM 12/08/2022 6:29 PM Care Teams Flight Control Tower Operator Relationship Specialty Start Date End Date Sadia Cloud MD PCP - General Family Practice 02/14/23
--- OUTSIDE RECORDS SUMMARY | 2024-11-26 13:17 | XMS_ITS ---
Author Organization [facility] [address] Address [address] [place] [address] Care Team Providers Care Staff Physician Name Role Phone Sadia Cloud MD Primary Care Provider Active Problems Problem Noted Date Diagnosed Date Atherosclerosis of artery of extremity with intermittent claudication 10/18/2024 Assessment & Plan (10/18/2024 3:44 PM CONTACT PERSON): Impression: Patient is status post left femoral [...] 09/30/2023 Assessment & Plan (10/18/2024 3:45 PM CONTACT PERSON): Impression: Chronic and stable. Plan: Continue glimepiride Assessment & Plan (09/30/2023 1:09 PM CONTACT PERSON): Impression: Chronic with good glucose control. Plan: [...] for DVT proph. Pain controlled with PRN Waldorf. Assessment & Plan (12/16/2022 12:44 PM CDT): Complete abx as ordered. Continue wound care as above. PT/OT. Assessment & Plan (12/13/2022 11:22 AM CDT): Pain well controlled. Was started on nadia Oxy but does not believe needs. Will d/c. Continue Waldorf PRN - reduce Tyl and change to [...] noninvasives. Assessment & Plan (09/30/2023 1:07 PM CONTACT PERSON): Impression: Patient is status post left femoral [...] femoral-popliteal bypass graft with 8 mm Propaten Carter-Brandon on 12/02/[address] Monge. Ivon/sutures remain in place. Pain controlled. Continue gabapentin, norco PRN. HTWB with boot. Vascular did not comeover and see at [facility] this week. Staff to make appt for this week for vascular to see outpt. Dtr to have wound care training today. Assessment & Plan (12/23/2022 1:09 PM CDT): s/p left external and common femoral artery endarterectomy with pericardial patch angioplasty, Left femoral-popliteal bypass graft with 8 mm Propaten Carter-Brandon on 12/02/[address] Monge. Ivon/sutures remain [...] femoral-popliteal bypass graft with 8 mm Propaten Carter-Brandon on 12/02/[address] Monge. SEE PAIN CONTROL ABOVE. Ivon in place. Will have nursing contact for staple removal date. Assessment & Plan (12/09/2022 5:20 PM CDT): Pt is s/p left external and common femoral artery endarterectomy with pericardial patch angioplasty, Left femoral-popliteal bypass graft with 8 mm Propaten Carter- Brandon on 12/02/[address] Monge. Continue wound care. On aspirin statin. Follow up was Vas outpatient Peripheral sensory neuropathy 11/27/2022 Assessment & Plan (12/09/2022 5:24 PM CDT): Symptoms controlled with gabapentin 600 mg b.i.d. Osteoarthritis of left knee 03/08/2022 Meningioma 11/13/2019 01/11/2023 Malignant neoplasm of unspec ified part of left bronchus or lung 11/01/2019 01/11/2023 Coronary artery disease invo lving quileute coronary artery of quileute heart without angina pectoris 08/22/2018 Assessment & Plan (12/09/2022 5:23 PM CDT): Denies any acute chest pain. Continue statin, aspirin, Imdur Pulmonary HTN 02/13/2018 Pleural effusion 08/16/2017 01/11/2023 Hypertension associated with diabetes 04/05/2017 Assessment & Plan (10/18/2024 3:45 PM CONTACT PERSON): Impression: Chronic with elevated blood pressure today. [...] dyslipidemia Assessment & Plan (09/30/2023 1:09 PM CONTACT PERSON): Impression: Chronic and stable. Plan: Continue Lipitor [...] non-mucinous type; positive for EGFR gene mutation Current Treatment and Therapy Plans No current plan information found. Past Treatment and Therapy Plans No past plan information found. Lifetime Dose Tracking * Chemical Lifetime Dose Automatic Entry Manual Entr y Air kerma at the reference point (Ka,r) 77 mGy 0 mGy 77 mGy Resolved Problems Problem Noted Date Diagnosed Date Resolved Date Ulcer of left foot with fat layer exposed 11/27/2022 12/13/2022 Pain of left calf 11/27/2022 12/13/2022 Cellulitis and abscess of foot 11/27/2022 12/16/2022 Assessment & Plan (12/13/2022 8:38 AM CDT): SEE ABOVE Myalgia 04/05/2017 12/13/2022 Preoperative state 08/02/2016 3 Overview (12/18/2016): Preoperative cardiovascular examination
--- OUTSIDE RECORDS SUMMARY | 2024-11-26 13:17 | XMS_ITS | Clinical Summary ---
Author Organization [facility] Address [address] [place] [address] Phone Care Team Providers Care Strand And Binder Controller Name Role Phone Hunter Engel MD Primary Care Provider [phone] Sonali Veliz MD Unavailable [phone] Viral Mclain Unavailable Denzel Avila MD Unavailable [phone] Allergies No known active allergies Medications ALPRAZolam (XANAX) 0.5 MG Tablet Take 0.5 mg by mouth 3 times daily as needed. Active amLODIPine (NORVASC) 10 MG Tablet Take 10 mg by mouth daily. Active digoxin (LANOXIN) 250 MCG Tablet Take 0.25 mg by mouth daily. Active gabapentin (NEURONTIN) 300 MG Capsule Take 1,500 mg by mouth 3 times daily. Active glimepiride (AMARYL) 4 MG Tablet Take 4 mg by mouth every morning. Active indapamide (LOZOL) 1.25 MG Tablet Take 1.25 mg by mouth every morning. Active lisinopril (PRINIVIL) 20 MG Tablet Take 20 mg by mouth 2 times daily. Active losartan (COZAAR) 100 MG Tablet Take 100 mg by mouth daily. Active metoprolol tartrate (LOPRESSOR) 100 MG Tablet Take 100 mg by mouth daily. Active metFORMIN (GLUCOPHAGE) 500 MG Tablet Take 500 mg by mouth 4 times daily. Active simvastatin (ZOCOR) 40 MG Tablet Take 40 mg by mouth every evening. Active levothyroxine (SYNTHROID) 75 MCG Tablet Take 75 mcg by mouth daily. Active rivaroxaban (XARELTO) 20 MG Tablet Take 20 mg by mouth daily (with dinner). Take with food. Active aspirin EC (ECOTRIN LOW STRENGTH) 81 MG Tablet Delayed Response Take 81 mg by mouth daily. Active Cyanocobalamin (VITAMIN B-12 PO) Take by mouth daily. Active Glucosamine-Cho ndroitin (ARTHX DS PO)Indications: 2 capsules Take by mouth daily. Indications: 2 capsules Active magnesium oxide 250 MG Tablet Take 250 mg by mouth daily. Active cholecalciferol 1000 UNIT Tablet Take by mouth daily. Active niacin 500 MG Tablet Take 500 mg by mouth daily. Active Multiple Vitamins-Minera ls (MULTIVITAMIN PO) Take by mouth daily. Active HYDROcodone-channing taminophen (NORCO) 5-325 MG Tablet Take 1 Tab by mouth every 4 hours as needed for Pain. 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 Immunizations Immunization Administration Dates Next Due Covid-19, Mrna, Lnp-s, PF, 1 00 mcg/0.5 mL Dose (Moderna) 11/11/2020,10/09/2020 Family History Medical History Relation Name Comments Heart Attack Brother Heart Attack Father Diabetes Mother Heart Attack Mother Heart Attack Sister Relation Name Status Comments Brother Alive Father Mother Sister Alive Social History Tobacco Use Types Packs/Day Years Used Date Smoking Tobacco: Former Cigarettes Q uit: 12/11/1985 Alcohol Use Standard Drinks/Week Comments No 0 (1 standard drink = 0.6 oz pur e alcohol) Sexually Active Control Partners Comments Never Comments No Sex and Gender Information Value Date Recorded Sex Assigned at Not on file Legal Sex Female 8:56 AM MARKETING COMMUNITY LIAISON Gender Identity Not on file Sexual Orientation Not on file Last Filed Vital Signs Vital Sign Reading Time Taken Comments Blood Pressure 158/80 09/28/2016 9:57 AM MARKETING COMMUNITY LIAISON Pulse 75 09/28/2016 9:57 AM MARKETING COMMUNITY LIAISON Temperature 37.3 C (99.1 F) 09/28/2016 9:57 AM MARKETING COMMUNITY LIAISON Respiratory Rate 16 09/28/2016 9:57 AM MARKETING COMMUNITY LIAISON Oxygen Saturation 96% 09/28/2016 9:57 AM MARKETING COMMUNITY LIAISON Inhaled Oxygen Concentration - - Weight 74.4 kg (164 lb) 09/28/2016 9:57 AM MARKETING COMMUNITY LIAISON Height 167.6 cm (5' 6 ) 09/28/2016 9:57 AM MARKETING COMMUNITY LIAISON Body Mass Index 26.47 09/28/2016 9:57 AM MARKETING COMMUNITY LIAISON Plan of Treatment Health Maintenance Due Date Last Done Comments DEXA Bone Density 1945 Hepatitis C Virus (HCV) Screening 1945 TdaP Immunization 1945 Pneumococcal Immunization (50+ years) (1 of 2 - PCV) 1963 Respiratory Syncytial Virus (RSV) Immunization (Adult) (1 - 1-dose 75+ series) 2019 Influenza Immunization (#1) 2024 05/29/2019, 0 05/11/2018 SARS-COV-2 Immunization ( season) 2024 12/25/2021, 07/21/2021, 11/11/2020, Additional history exists Zoster Immunization Completed 11/10/2018, 8 Hepatitis B Immunization Aged Out No longer eligible based on patient's age to complete this topic Meningococcal Immunization (ACWY) Aged Out No longer eligible based on patient's age to complete this topic Rotavirus Immunization Aged Out No lo nger eligible based on patient's age to complete this topic Insurance MEDICARE [facility] Care Teams Strand And Binder Controller Relationship Specialty Start Date End Date Hunter Engel MD [address] [place] [address] PCP - General Family Medicine 09/21/16 Sonali Veliz MD [address] [facility] [address] [place] [address] Consulting Physician Pulmonary Disease 09/21/16 Viral Mclain [address] [facility] [address] [place] [address] Consulting Physician Medical Oncology 09/21/16 Denzel Avila MD [address] [facility] [address] [place] [address] Consulting Physician Radiation Oncology 09/29/16
--- OUTSIDE RECORDS SUMMARY | 2024-11-26 13:17 | XMS_ITS | Clinical Summary ---
Author Organization [facility] [address] Address [address] [place] [address] Care Team Providers Care Organizational Consultant Name Role Phone Sadia Cloud MD Primary Care Provider Allergies No known active allergies Medications glimepiride (AMARYL) 4 mg tablet take 1 tablet (4MG) by oral route every day 0 07/05/20 12 Active multivitamin-m zj-nvfo-DM-vit K (MULTI FOR HER) 18 mg iron-600 [...] STRIP TO CHECK GLUCOSE TWICE DAILY 05/22/20 20 Active onetouch ultrasoft lancets USE TO CHECK GLUCOSE TWICE DAILY NEEDED 05/23/20 20 Active calcium citrate (CALCITRATE) 950 mg (200 [...] 10/18/2024 Assessment & Plan (10/18/2024 3:44 PM MANAGER PRIVACY): Impression: Patient is status post left femoral [...] 09/30/2023 Assessment & Plan (10/18/2024 3:45 PM MANAGER PRIVACY): Impression: Chronic and stable. Plan: Continue glimepiride Assessment & Plan (09/30/2023 1:09 PM MANAGER PRIVACY): Impression: Chronic with good glucose control. Plan: [...] for DVT proph. Pain controlled with PRN Raymond. Assessment & Plan (12/16/2022 12:44 PM CDT): Complete abx as ordered. Continue wound care as above. PT/OT. Assessment & Plan (12/13/2022 11:22 AM CDT): Pain well controlled. Was started on nadia Oxy but does not believe needs. Will d/c. Continue Raymond PRN - reduce Tyl and change to [...] PM CDT): Dc lispro - continue Novolin /30 16u qam + 10u qpm. Restart Metformin. [...] noninvasives. Assessment & Plan (09/30/2023 1:07 PM MANAGER PRIVACY): Impression: Patient is status post left femoral [...] femoral-popliteal bypass graft with 8 mm Propaten [place]-Brandon on 12/02/[address] Monge. Ivon/sutures remain in place. Pain controlled. Continue gabapentin, norco PRN. HTWB with boot. [place]ascular [place] [facility] [place] Staff to make appt for this week for vascular to see outpt. Dtr to have wound care training today. Assessment & Plan (12/23/2022 1:09 PM CDT): s/p left external and common femoral artery endarterectomy with pericardial patch angioplasty, Left femoral-popliteal bypass graft with 8 mm Propaten Hays-Brandon on 12/02/[address] Monge. Ivon/sutures remain [...] femoral-popliteal bypass graft with 8 mm Propaten Hays-Brandon on 12/02/[address] Monge. SEE PAIN CONTROL ABOVE. Ivon in place. Will have nursing contact for staple removal date. Assessment & Plan (12/09/2022 5:20 PM CDT): Pt is s/p left external and common femoral artery endarterectomy with pericardial patch angioplasty, Left femoral-popliteal bypass graft with 8 mm Propaten [place]- [place] on 12/02/[address] Monge. Continue wound care. On aspirin statin. Follow up was Vas outpatient Peripheral sensory neuropathy 11/27/2022 Assessment & Plan (12/09/2022 5:24 PM CDT): Symptoms controlled with gabapentin 600 mg b.i.d. Osteoarthritis of left knee 03/08/2022 Meningioma 11/13/2019 01/11/2023 Malignant neoplasm of unspec ified part of left bronchus or lung 11/01/2019 01/11/2023 Coronary artery disease invo lving [place] coronary artery of [place] heart without angina pectoris 08/22/2018 Assessment & Plan (12/09/2022 5:23 PM CDT): Denies any acute chest pain. Continue statin, aspirin, Imdur Pulmonary HTN 02/13/2018 Pleural effusion 08/16/2017 01/11/2023 Hypertension associated with diabetes 04/05/2017 Assessment & Plan (10/18/2024 3:45 PM MANAGER PRIVACY): Impression: Chronic with elevated blood pressure today. [...] dyslipidemia Assessment & Plan (09/30/2023 1:09 PM MANAGER PRIVACY): Impression: Chronic and stable. Plan: Continue Lipitor [...] ABOVE Myalgia 04/05/2017 12/13/2022 Preoperative state 08/02/2016 Overview (12/18/2016): Preoperative cardiovascular examination Encounters Date Type Department Care Team Description 10/17/2024 9:30 AM MANAGER PRIVACY Office Visit [facility] Medical [facility] Vascular at [address] [id number] Krystle Grant NP Atherosclerosis of artery of extremity with intermittent claudication (Primary Dx); Type 2 diabetes mellitus with diabetic peripheral angiopathy without gangrene, with long-term current use of insulin (HCC); Hypertension associated with diabetes (HCC) 10/17/2024 Orders Only [facility] Medical Group Vascular at [address] [phone] Harish Paulino MD PVD (peripheral vascular disease) (Primary Dx) 10/08/2024 1:00 PM MANAGER PRIVACY Ancillary Procedure [facility] Vascular and Vein Surgery at [address] [id number] PAD (peripheral artery disease) 10/08/2024 1:00 PM MANAGER PRIVACY Ancillary Procedure [facility] Vascular and Vein Surgery at [address] [phone] PVD (peripheral vascular disease) 09/21/2024 Orders Only [facility] Group Vascular and Vein Surgery [address] [place] [address] Harish Paulino MD PAD (peripheral artery disease) (Primary Dx) from Last 3 Months Immunizations Immunization Administration Dates Next Due Influenza, Quadrivalent, Rec ombinant, Egg Free, Preservative Free, Intramuscular 05/29/2019 Influenza, Trivalent, High D ose, Split, Preservative Free, Intramuscular 05/11/2018 ZOSTER Recombinant 11/10/2018,07/24/2018 Surgical History Surgery Date Site/Laterality Comments OTHER SURGICAL HISTORY breast lumpectomy-benign THYROIDECTOMY, PARTIAL partial thyroidectomy CORONARY STENT PLACEMENT Coronary Stent Placement BILATERAL VATS ABLATION BILATERAL VATS ABLATION 11/12/2015 BREAST SURGERY 1968 CATARACT EXTRACTION 2023 JOINT REPLACEMENT 2015 Medical History Medical History Date Comments Hypertension Hypertension Diabetes mellitus (HCC) diabetes Osteoarthritis osteoarthritis Hx Other Medical cataract Hypothyroidism hypothyroidism Hx Other Medical dyslipidemia Chronic coronary artery disease Coronary Artery Disease CKD (chronic kidney disease) Diabetic peripheral neuropathy (HCC) Cancer (HCC) Lung cancer (HCC) 11/12/2015 Glaucoma Heart disease Family History Medical History Relation Name Comments Other Brother 2 A-Fib; Heart attack Father Corby Serrano () My ocardial Infarction; /Myocardial Infarction; Cause of : Myocardial Infarction Heart attack Mother Letitia Ruvalcaba Myocardial Infarction; Cause of : Myocardial Infarction Alzheimer's disease Sister 1 Letitia Gilbertgler Arthritis Sister 1 Letitia Gilbertgler Hypertension Sister 1 Letitia Ruvalcaba Memory loss Sister 1 Letitia Ruvalcaba Stent Sister 2 Coronary Stent Placement; Relation Name Status Comments Brother 1 Alive Brother 2 Father Corby Serrano () Mother Letitia Ruvalcaba Sister 1 Letitia Ruvalcaba Alive Sister 2 Social History Tobacco Use Types Packs/Day Years [...] 11/29/2022 How often do you attend chur or buddhist services? More than 4 times per year 11/29/2022 Do you belong to any clubs o r organizations such as restorationism groups, unions, fraternal or athletic groups, or [...] on file Legal Sex Female 2:02 AM MANAGER PRIVACY Gender Identity Not on file Sexual Orientation Not on file Obstetrics History Last Filed Vital Signs Vital Sign Reading Time Taken Comments Blood Pressure 195/84 10/17/2024 9:15 AM MANAGER PRIVACY Pulse 74 10/17/2024 9:15 AM MANAGER PRIVACY Temperature 36.4 C (97.5 F) 12/27/2022 11:50 AM CDT Respiratory Rate 16 12/27/2022 11:50 AM CDT Oxygen Saturation 99% 10/17/2024 9:15 AM MANAGER PRIVACY Inhaled Oxygen Concentration - - Weight 83.9 kg (185 lb) 10/17/2024 9:15 AM MANAGER PRIVACY Height 167.6 cm (5' 6 ) 10/17/2024 9:15 AM MANAGER PRIVACY Body Mass Index 29.86 10/17/2024 9:15 AM MANAGER PRIVACY Plan of Treatment Health Maintenance Due Date Last Done Comments Albumin Creatinine Ratio, Urine 1945 Depression Screening 1945 Osteoporosis Screening-Bone Density Scan 1945 Dilated Eye Exam 1945 Foot Exam 1945 DTaP/Tdap/Td Vaccine (1 - Tdap) 1955 Hepatitis B Screening 1962 Pneumococcal vaccine 65+ (1 of 2 - PCV) 1963 Well Visit 65+ 2009 Hemoglobin A1C 05/30/2023 11/27/2022 Fall Risk Assessment 12/08/2023 12/07/2022 eGFR 12/28/2023 12/27/2022, 12/11, 12/13/2022, Additional history exists Lipid Panel 02/15/2024 02/14/2023, 12/11, 10/15/2020, Additional history exists Covid-19 Vaccine (3 - 2023-2 5 season) 2024 11/11/2020, 10/09/2020 Influenza Vaccine (#1) 2024 05/29/2019, 2017 Zoster Vaccine Completed 11/10/2018, 07/24/2018 Medical Devices Implanted Type Area Side Door Worker Device Identifier Shelf Expiration Date Model / Serial / Lot [employer] Weck Horizon 24 Cartridge Ligate Triangulate Cross Section Heart [id number] - [id number] Implanted:Qty: 2 on 12/02/2022 by Zeeshan Monge MD at [facility] Left: Femur [employer] [id number] / / [employer] Hays 8mm 80cm Stretch Thin Wall Graft Vascular Heparin Propaten [id number] - [id number] - [id number] Implanted:Qty: 1 on 12/02/2022 by Zeeshan Monge MD at [facility] Left: Femur [employer] [id number] 03/26/2026 [id number] / [id number] / [email or web address] Patch Vascuguard 0.88cm [id number] - [id number] Implanted:Qty: 1 on 12/02/2022 by Zeeshan Monge MD at [facility] [email or web address] [id number] / [id number] Procedures Procedure Name Priority Date/Time Associated Diagnosis Comments US WILFRED Schedule Routine, Read Routine (OP Routine) 10/08/2024 1:42 PM MANAGER PRIVACY PAD (peripheral artery disease) US ARTERIAL DUPLEX LOWER EXTREMITY LEFT LIMITED Schedule Routine, Read Routine (OP Routine) 10/08/2024 1:38 PM MANAGER PRIVACY PVD (peripheral vascular disease) POCT LIPID PANEL Routine 02/14/2023 9:48 AM CDT Mixed diabetic hyperlipidemia associated with type 2 diabetes mellitus (CMS/HCC) (HCC) EGFR Routine 12/27/2022 6:43 AM CDT HEMOGLOBIN A1C Routine 11/27/2022 9:56 PM CDT from Last 3 Months or Most Recently Relevant to Health Maintenance Results * US WILFRED (10/08/2024 1:42 PM MANAGER PRIVACY) LV EF % CONS SCIMAGE Anatomical Region Laterality Modality Vascular N/A Ultrasound 10/08/2024 12:4 5 PM MANAGER PRIVACY Narrative 10/10/2024 1:15 PM MANAGER PRIVACY Vascular & Vein Surgery [address] [place] [address] Lower Extremity Arterial Doppler Report Patient Name: WANDA GARCÍA K : 1945 Study Date: 10/08/2024 12:45:00 PM Gender: F News Writer: Shira Zheng RVT Location: [facility] Ref Provider: [...] mmHg Lt Brachial Pressure 191 mmHg Rt ACTIVITIES ATTENDANT Pressure 93 mmHg Lt ACTIVITIES ATTENDANT Pressure >230 mmHg Rt DPA Pressure >230 [...] By: Harish Paulino MD 10/10/2024 1:14:51 PM MANAGER PRIVACY Procedure Note Harish Paulino MD - 10/10/2024 Vascular & Vein Surgery [address] [facility] [place] [address] Lower Extremity Arterial Doppler Report Patient Name: WANDA GARCÍA K : 1945 Study Date: 10/08/2024 12:45:00 PM Gender: F News Writer: Shira Zheng RVT Location: [facility] Ref Provider: [...] mmHg Lt Brachial Pressure 191 mmHg Rt ACTIVITIES ATTENDANT Pressure 93 mmHg Lt ACTIVITIES ATTENDANT Pressure >230 mmHg Rt DPA Pressure >230 [...] By: Harish Paulino MD 10/10/2024 1:14:51 PM MANAGER PRIVACY us Harish Paulino MD IMG US PROCEDURES Final Result * US Arterial Duplex Lower Extremity Left Limited (10/08/2024 1:38 PM MANAGER PRIVACY) LV EF % CONS SCIMAGE Anatomical Region Laterality Modality Vascular Left Ultrasound 10/08/2024 12:5 8 PM MANAGER PRIVACY Narrative 10/10/2024 1:15 PM MANAGER PRIVACY Vascular & Vein Surgery [address] [place] [address] Lower Extremity Arterial Duplex Report Patient Name: WANDA GARCÍA K : 1945 (79y ) Gender: F Study Date: 10/08/2024 12:58:56 PM Ht(Inch): Wt(Lb): BSA: News Writer: BORIS Location: [facility] Order Provider: HARISH PAULINO [...] completed on 04/11/24. MEASUREMENTS: Left Value Lt KEYCASE ASSEMBLER Dst PSV 304.00 cm/sec Lt Ant Tibial [...] By: Harish Paulino MD 10/10/2024 1:14:21 PM MANAGER PRIVACY Procedure Note Harish Paulino MD - 10/10/2024 Vascular & Vein Surgery [address] [place] [id number] Lower Extremity Arterial Duplex Report Patient Name: WANDA GARCÍA K : 1945 (79y ) Gender: F Study Date: 10/08/2024 12:58:56 PM Ht(Inch): Wt(Lb): BSA: News Writer: Location: [facility] Order Provider: HARISH PAULINO Quality: Adequate Ref [...] was completed on04/11/24. MEASUREMENTS: Left Value Lt KEYCASE ASSEMBLER Dst PSV 304.00 cm/sec Lt Ant Tibial [...] graft with no evidence of stenosis. Elevated GVJ690 cm/s at proximal anastomosis with decreased velocities [...] By: Harish Paulino MD 10/10/2024 1:14:21 PM MANAGER PRIVACY Harish Paulino MD IMG US PROCEDURES Final [...] AM CDT) eGFR 65 mL/min/1. 73 m2 [facility] MIGUEL Comment: Interpretive Data Reference Interval Normal >/= [...] was last reviewed 2021. Testing performed by: [facility], [address] [place] [address]., [id number] Blood 12/27/2022 6:43 AM CDT 12/27/2022 7:02 AM CDT us Birgit Leon NP LAB BLOOD ORDERABLES Final Result Performing Organization Address [facility] Co de Phone Number [place] [address] [facility] [place] [address] * (ABNORMAL) Hemoglobin A1c (11/27/2022 9:56 PM CDT) Hgb A1C 7.3(H) 4.0 - 5.6 % [place] Estimated Average Glucose 163 mg/dL [place] Comment: The ADA recommends reporting an estimated Average Glucose (eAG) with all Hemoglobin A1c results using the equation derived from a study of 507 normal and diabetic adults. Minority populations were underrepresented and children were not included. (Diabetes Care 31:4171-7111, 2008). The eAG is not equivalent to a fasting glucose. Blood 11/27/2022 9:56 PM CDT 11/27/2022 10:09 PM CDT us Deepika Roman MD LAB BLOOD ORDERABLES Final Re sult Performing Organization Address City/[facility] Co de Phone Number [place] [address] [facility] [place] [address] from Last 3 Months or Most Recently Relevant to Health Maintenance Insurance MEDICARE BLUE CROSS MEDICARE SUPPLEMENT MEDICARE [facility] Member Subscriber Plan / Payer (Ef fective 2009-Present) Name:Wanda García Relation to Subscriber:Self Name:Wanda García Payer ID:[id number] (NAIC) Type:[employer] OTHER Address: [address] [place] [address] [place] [phone] Advance Directives For more information, please contact: [phone] * Full Code (Latest Code Status on File) Date Activated Date Inactivated Comments 11/27/2022 8:45 PM 12/08/2022 6:29 PM Care Teams Organizational Consultant Relationship Specialty Start Date End Date Sadia Cloud MD PCP - General Family Practice 02/14/23
[2024-11-26 13:58] LABS: Basophils Percent Auto 0.4 % (0.2-1.2); Eosinophils Absolute Auto 0.1 K/mm3 (0-0.3); Eosinophils Percent Auto 1.5 % (0-4.4); Hemoglobin 15.2 g/dL (12.0-15.0); Immature Granulocyte Absolute 0.01 K/mm3 (0.00-0.031); Immature Granulocyte Percent A 0.1 % (0-0.5); Lymphocytes Absolute Auto 0.65 K/mm3 (0.9-3.2); Lymphocytes Percent Auto 9.5 % (18.3-44.2); Mean Corpuscular HGB Conc 32.3 g/dl (32-36); Mean Corpuscular Hemoglobin 30.5 pg (26-34); Mean Corpuscular Volume 94.2 fl (80-100); Monocytes Absolute Auto 0.6 K/mm3 (0.1-0.6); Monocytes Percent Auto 9.1 % (2.6-8.5); Neutrophils Absolute Auto 5.4 K/mm3 (1.3-6.7); Neutrophils Percent Auto 79.4 % (45.5-73.1); Platelet Count Result 163 k/mm3 (150-375); Red Blood Count 4.99 M/mm3 (4.2-5.4); Red Cell Distribution Width 12.7 % (11.5-14.5); White Blood Count 6.8 K/mm3 (4.5-10.0)
[2024-11-26 15:22] LABS: Lipase 159 U/L (23-300)
[2024-11-26 16:13] LABS: Alanine Aminotransferase 39 U/L (6-35); Albumin Level 4.2 g/dL (3.5-5.1); Alkaline Phosphatase 127 U/L (38-126); Anion Gap 9 mmol/L (4-12); Aspartate Amino Transferase 45 U/L (14-36); Blood Urea Nitrogen 31 mg/dL (7-17); Calcium 9.6 mg/dL (8.4-10.2); Carbon Dioxide 29 mmol/L (22-30); Chloride 102 mmol/L (98-107); Cholesterol 129 mg/dL (0-200); Estimated Glomerular Filt Rate 47; Glucose 289 mg/dL (65-110); HDL Direct 29 mg/dL; Potassium 4.6 mmol/L (3.4-5.0); Sodium 140 mmol/L (137-145); Triglycerides 203 mg/dL (<150)
[2024-11-26 16:26] LABS: LDL Cholesterol Direct 59 mg/dL
[2024-11-26 16:39] LABS: Thyroid Stimulating Hormone 0.179 uIU/mL (0.465-4.680)
[2024-11-26 19:22] LABS: Hemoglobin A1C 9.6 % (<5.7)
[2024-11-27 09:58] LABS: CA 19-9 28 U/mL (<34)
[2024-11-30 05:03] LABS: Immunoglobulin G, Serum 808 mg/dL (600-1540); Immunoglobulin G1 456 mg/dL (382-929); Immunoglobulin G2 193 mg/dL (241-700); Immunoglobulin G3 28 mg/dL (22-178); Immunoglobulin G4 77.5 mg/dL (4.0-86.0)
== END 2024-11-26 10:51 | disposition home or self-care (01) ==
PROVIDERS: Student in an Organized Health Care Education/Training Program; PCP Family Medicine; Visit Provider Nurse Practitioner Family
DX: K86.89 Other specified diseases of pancreas (principal); E03.9 Hypothyroidism, unspecified; E78.2 Mixed hyperlipidemia; R74.8 Abnormal levels of other serum enzymes; E11.22 Type 2 diabetes mellitus with diabetic chronic kidney disease; N18.30 Chronic kidney disease, stage 3 unspecified; D75.1 Secondary polycythemia; I27.20 Pulmonary hypertension, unspecified; E11.40 Type 2 diabetes mellitus with diabetic neuropathy, unspecified; Z79.4 Long term (current) use of insulin
CPT/HCPCS: 36415; 80053; 80061; 82784; 82787; 83036; 83690; 84443; 85025; 86301

== ENCOUNTER 2025-01-12 08:10 | Outpatient (CLI) | payer MEDICARE, SELFPAY ==
--- NOTE | ~2025-01-12 | MM_ITS ---
EXAMINATION: MM screening francisca BI w jf HISTORY: Screening TECHNIQUE: Craniocaudal and mediolateral oblique 3-D tomosynthesis images were obtained and synthetic 2-D images were generated. CAD analysis was submitted and interpreted. COMPARISON: Comparison to multiple prior studies sequentially, with oldest reviewed study dated 05/23. BREAST PARENCHYMAL COMPOSITION: Not dense: There are scattered areas of fibroglandular density. FINDINGS: There is no evidence of suspicious mass, calcification, or architectural distortion to sugg est malignancy in either breast. There has been no suspicious interval change. IMPRESSION: 1. No mammographic evidence of malignancy. 2. Recommend routine screening mammography in one year. BI-RADS Category 1: Negative Reviewed, dictated and finalized at location A.
== END 2025-01-12 08:11 | disposition home or self-care (01) ==
LOC: MICIMG 08:11
PROVIDERS: PCP Family Medicine; Visit Provider Family Medicine
DX: Z12.31 Encounter for screening mammogram for malignant neoplasm of breast (principal)
CPT/HCPCS: 77063; 77067

== ENCOUNTER 2025-01-14 14:04 | Outpatient (CLI) | payer MEDICARE, SELFPAY ==
--- OUTSIDE RECORDS SUMMARY | 2025-01-14 14:43 | XMS_ITS | Referral Summary ---
Author Organization [facility] [place] [address] Address [address] [place] [address] Care Team Providers Care Lumber Carrier Name Role Phone Sadia Cloud MD Primary Care Provider Encounters Date Type Department Care Team Description 10/17/[address] [facility] V[facility] at [address] [place] [address] Brennan Paulino MD PVD (peripheral vascular disease) (Primary Dx) 10/17/2024 9:30 AM DIRECTOR OF ACADEMIC Office Visit [facility] at [address] [place] [address] Krystle Gratn NP Atherosclerosis of artery of extremity with intermittent claudication (Primary Dx); Type 2 diabetes mellitus with diabetic peripheral angiopathy without gangrene, with long-term current use of insulin (HCC); Hypertension associated with diabetes (HCC) from Last 3 Months Allergies No known active allergies Medications glimepiride (AMARYL) 4 mg tablet take 1 tablet (4MG) by oral route every day 0 2 Active multivitamin-mi d-kqyc-BP-vit K (MULTI FOR HER) 18 mg iron-600 mcg-40 mcg capsule take as directed 0 2 Active rivaroxaban (XARELTO) tablet take 1 tablet by oral route every day with the evening meal 0 0 3 Active aspirin (ASPIR-81) 81 mg tablet take 1 tablet by oral route every day 0 0 5 Active lisinopril (PRINIVIL,ZESTR [place]) 20 mg tablet Take 2 tablets (40 mg total) by mouth daily. 30 tablet 11 7 Active diltiazem LA (CARDIZEM LA) 180 mg 24 hr tablet Take 1 tablet (180 mg total) by mouth Active magnesium oxide (MAG-OX) 250 mg (150.8 mg elemental) tabletIndicatio ns:hypomagnesem ia Take 1 tablet (250 mg total) by mouth daily Active OneTouch Ultra Blue Test Strip strip USE STRIP TO CHECK GLUCOSE TWICE DAILY 0 Active onetouch ultrasoft lancets USE TO CHECK GLUCOSE TWICE DAILY NEEDED 0 Active calcium citrate (CALCITRATE) 950 mg (200 mg of elemental calcium) tablet Take 1 tablet (950 mg total) by mouth daily Active gabapentin (NEURONTIN) 300 mg capsule Take 1 capsule (300 mg total) by mouth 5 (five) times a day Active vitamin B complex with C-folic acid (NEPHROCAP) 1 mg capsuleIndicati ons:Vitamin Deficiency Prevention Take 1 capsule by mouth daily Active ALPRAZolam (XANAX) 0.5 mg tablet Take 1 tablet (0.5 mg total) by mouth 2 (two) times a day as needed for anxiety 30 tablet 1 3 Active indapamide (LOZOL) 1.25 mg tablet Take 1 tablet (1.25 mg total) by mouth every morning 30 tablet 3 08/21/20 25 Active NovoLIN 70/30 100 unit/mL vial for injection 16 units subq before breakfast & 10 units subq before dinner. 3 Active nitroglycerin (NITROSTAT) 0.[address] 1 tablet (0.4 mg total) under the tongue every 5 (five) minutes as needed for chest pain 25 tablet 2 3 Active levothyroxine (SYNTHROID) 50 mcg tablet Take 1 tablet (50 mcg total) by mouth daily 3 Active cyanocobalamin (Vitamin B-12) 1,000 mcg tabletIndicatio ns:Prevention of Vitamin B12 Deficiency Take 1 tablet (1,000 mcg total) by mouth daily Active cholecalciferol 25 mcg (1,000 unit) tablet Take 1 tablet (1,000 Units total) by mouth daily Active latanoprost (XALATAN) 0.005 % ophthalmic solution 1 drop nightly 4 Active atorvastatin (LIPITOR) 40 mg tablet Take 1 tablet by mouth once daily 90 tablet 5 Active metoprolol XL (TOPROL-XL) 100 mg 24 hr tablet TAKE 1 & 1/2 (ONE & ONE-HALF) TABLETS BY MOUTH ONCE DAILY 135 tablet 1 5 Active Active Problems Problem Noted Date Diagnosed Date Atherosclerosis of artery of extremity with intermittent claudication 10/18/2024 Assessment & Plan (10/18/2024 3:44 PM DIRECTOR OF ACADEMIC): Impression: Patient is status post left femoral [...] 09/30/2023 Assessment & Plan (10/18/2024 3:45 PM DIRECTOR OF ACADEMIC): Impression: Chronic and stable. Plan: Continue glimepiride Assessment & Plan (09/30/2023 1:09 PM DIRECTOR OF ACADEMIC): Impression: Chronic with good glucose control. Plan: [...] for DVT proph. Pain controlled with PRN [place]. Assessment & Plan (12/16/2022 12:44 PM CDT): Complete abx as ordered. Continue wound care as above. PT/OT. Assessment & Plan (12/13/2022 11:22 AM CDT): Pain well controlled. Was started on nadia Oxy but does not believe needs. Will d/c. Continue [place] PRN - reduce Tyl and change to [...] noninvasives. Assessment & Plan (09/30/2023 1:07 PM DIRECTOR OF ACADEMIC): Impression: Patient is status post left femoral [...] femoral-popliteal bypass graft with 8 mm Propaten [place]-Brandon on 12/02/[address] Monge. [place]/sutures remain in place. Pain controlled. Continue gabapentin, norco PRN. HTWB with boot. Vascular did not comeover and see at [facility] this week. Staff to make appt for this week for vascular to see outpt. Dtr to have wound care training today. Assessment & Plan (12/23/2022 1:09 PM CDT): s/p left external and common femoral artery endarterectomy with pericardial patch angioplasty, Left femoral-popliteal bypass graft with 8 mm Propaten [place]-Brandon on 12/02/[address] Monge. [place]/sutures remain [...] femoral-popliteal bypass graft with 8 mm Propaten [place]-Brandon on 12/02/[address] Monge. SEE PAIN CONTROL ABOVE. [place] in place. Will have nursing contact for staple removal date. Assessment & Plan (12/09/2022 5:20 PM CDT): Pt is s/p left external and common femoral artery endarterectomy with pericardial patch angioplasty, Left femoral-popliteal bypass graft with 8 mm Propaten [place]- Brandon on 12/02/[address] Monge. Continue wound care. On aspirin statin. Follow up was Vas outpatient Peripheral sensory neuropathy 11/27/2022 Assessment & Plan (12/09/2022 5:24 PM CDT): Symptoms controlled with gabapentin 600 mg b.i.d. Osteoarthritis of left knee 03/08/2022 Meningioma 11/13/2019 01/11/2023 Malignant neoplasm of unspec ified part of left bronchus or lung 11/01/2019 01/11/2023 Coronary artery disease invo lving [place] coronary artery of [place] heart without angina pectoris 08/22/2018 Assessment & Plan (12/09/2022 5:23 PM CDT): Denies any acute chest pain. Continue statin, aspirin, Imdur Pulmonary HTN 02/13/2018 Pleural effusion 08/16/2017 01/11/2023 Hypertension associated with diabetes 04/05/2017 Assessment & Plan (10/18/2024 3:45 PM DIRECTOR OF ACADEMIC): Impression: Chronic with elevated blood pressure today. [...] dyslipidemia Assessment & Plan (09/30/2023 1:09 PM DIRECTOR OF ACADEMIC): Impression: Chronic and stable. Plan: Continue Lipitor [...] state 08/02/2016 Overview (12/18/2016): Preoperative cardiovascular examination Immunizations Immunization [...] often do you attend chur ch or episcopalian services? More than 4 times per year 11/29/2022 Do you belong to any clubs o r organizations such as catholic groups, unions, fraternal or athletic groups, or [...] on file Legal Sex Female 2:02 AM DIRECTOR OF ACADEMIC Gender Identity Not on file Sexual Orientation Not on file Last Filed Vital Signs Vital Sign Reading Time Taken Comments Blood Pressure 195/84 10/17/2024 9:15 AM DIRECTOR OF ACADEMIC Pulse 74 10/17/2024 9:15 AM DIRECTOR OF ACADEMIC Temperature 36.4 C (97.5 F) 12/27/2022 11:50 AM CDT Respiratory Rate 16 12/27/2022 11:50 AM CDT Oxygen Saturation 99% 10/17/2024 9:15 AM DIRECTOR OF ACADEMIC Inhaled Oxygen Concentration - - Weight 83.9 kg (185 lb) 10/17/2024 9:15 AM DIRECTOR OF ACADEMIC Height 167.6 cm (5' 6 ) 10/17/2024 9:15 AM DIRECTOR OF ACADEMIC Body Mass Index 29.86 10/17/2024 9:15 AM DIRECTOR OF ACADEMIC Plan of Treatment Not on file Medical Devices Implanted Type Area Quality Rn Device Identifier Shelf Expiration Date Model / Serial / Lot PharmAtheneflex Medical Inc Weck Horizon 24 Cartridge Ligate Triangulate Cross Section Heart [id number] - [id number] Implanted:Qty: 2 on 12/02/2022 by Zeeshan Monge MD at [facility] Left: Femur Teleflex Medical Inc [id number] / / Wl [employer] [place] 8mm 80cm Stretch Thin Wall Graft Vascular Heparin Propaten [id number] - [id number] - [id number] Implanted:Qty: 1 on 12/02/2022 by Zeeshan Monge MD at [facility] Left: Femur Wl [place] [employer] [id number] 03/26/2026 [id number] / [id number] / [facility] Yenny Patch Vascuguard 0.88cm [id number] - [id number] Implanted:Qty: 1 on 12/02/2022 by Zeeshan Monge MD at [facility] Yenny [id number] / / [id number] Procedures Procedure Name Priority Date/Time Associated Diagnosis Comments POCT LIPID PANEL Routine 02/14/2023 9:48 AM CDT Mixed diabetic hyperlipidemia associated with type 2 diabetes mellitus (CMS/HCC) (HCC) EGFR Routine 12/27/2022 6:43 AM CDT HEMOGLOBIN A1C Routine 11/27/2022 9:56 PM CDT from Last 3 Months or Most Recently Relevant to Health Maintenance Results * POCT lipid panel (02/14/2023 9:48 AM CDT) Cholesterol, POC 108 mg/dL Comment:GLU = 86 HDL, POC 26 mg/dL Triglycerides, POC 130 mg/dL LDL Cholesterol POC 56 mg/dL Chol/HDL Ratio, POC 4.1 Non-HDL Cholesterol, POC 82 mg/dL Cholesterol Total, POC 108 mg/dL Capillary blood 02/14/2023 9 :48 AM CDT us David Garay MD POINT OF CARE TEST ORDER OCTAVIO Final Result * eGFR (12/27/2022 6:43 AM CDT) eGFR 65 mL/min/1. 73 m2 [facility] Comment: Interpretive Data Reference Interval Normal >/= [...] was last reviewed 2021. Testing performed by: [facility], [facility], [place]., [address] Blood 12/27/2022 6:43 AM CDT 12/27/2022 7:02 AM CDT us Birgit Leon NP LAB BLOOD ORDERABLES Final Result [facility] [address] [facility] [place] [address] * (ABNORMAL) Hemoglobin A1c (11/27/2022 9:56 PM CDT) Hgb A1C 7.3(H) 4.0 - 5.6 % [facility]UEL Estimated Average Glucose 163 mg/dL [facility] Comment: The ADA recommends reporting an estimated Average Glucose (eAG) with all Hemoglobin A1c results using the equation derived from a study of 507 normal and diabetic adults. Minority populations were underrepresented and children were not included. (Diabetes Care 31:6609-0152, 2008). The eAG is not equivalent to a fasting glucose. Blood 11/27/2022 9:56 PM CDT 11/27/2022 10:09 PM CDT us Deepika Roman MD LAB BLOOD ORDERABLES Final Re sult Performing Organization Address [facility] de Phone Number [facility] [place] [address] from Last 3 Months or Most Recently Relevant to Health Maintenance Insurance MEDICARE [facility] MEDICARE SUPPLEMENT MEDICARE FORMERLY [facility] Advance Directives For more information, please contact: [phone] * Full Code (Latest Code Status on File) Date Activated Date Inactivated Comments 11/27/2022 8:45 PM 12/08/2022 6:29 PM Care Teams Lumber Carrier Relationship Specialty Start Date End Date Sadia Cloud MD PCP - General Family Practice 02/14/23
--- OUTSIDE RECORDS SUMMARY | 2025-01-14 14:43 | XMS_ITS | Clinical Summary ---
Author Organization [facility] [place] [address] Address [address] [place] [address] Care Team Providers Care Cartridge Assembler Name Role Phone Sadia Cloud MD Primary Care Provider Allergies No known active allergies Medications glimepiride (AMARYL) 4 mg tablet take 1 tablet (4MG) by oral route every day 0 2 Active multivitamin-mi w-wuix-ZW-vit K (MULTI FOR HER) 18 mg iron-600 [...] 10/18/2024 Assessment & Plan (10/18/2024 3:44 PM ASSEMBLER MOVEMENT): Impression: Patient is status post left femoral [...] 09/30/2023 Assessment & Plan (10/18/2024 3:45 PM ASSEMBLER MOVEMENT): Impression: Chronic and stable. Plan: Continue glimepiride Assessment & Plan (09/30/2023 1:09 PM ASSEMBLER MOVEMENT): Impression: Chronic with good glucose control. Plan: [...] for DVT proph. Pain controlled with PRN [place]. Assessment & Plan (12/16/2022 12:44 PM CDT): Complete abx as ordered. Continue wound care as above. PT/OT. Assessment & Plan (12/13/2022 11:22 AM CDT): Pain well controlled. Was started on nadia Oxy but does not believe needs. Will d/c. Continue [place] PRN - reduce Tyl and change to [...] noninvasives. Assessment & Plan (09/30/2023 1:07 PM ASSEMBLER MOVEMENT): Impression: Patient is status post left femoral [...] femoral-popliteal bypass graft with 8 mm Propaten Snyder-Brandon on 12/02/[address] Monge. [place]/sutures remain in place. Pain controlled. Continue gabapentin, norco PRN. HTWB with boot. Vascular did not comeover and see at [facility] this week. Staff to make appt for this week for vascular to see outpt. Dtr to have wound care training today. Assessment & Plan (12/23/2022 1:09 PM CDT): s/p left external and common femoral artery endarterectomy with pericardial patch angioplasty, Left femoral-popliteal bypass graft with 8 mm Propaten [place]-Brandon on 12/02/[address] Monge. [place]/sutures remain in place. Increased nerve pain last [...] femoral-popliteal bypass graft with 8 mm Propaten [place]-Brandon on 12/02/[address] Monge. SEE PAIN CONTROL ABOVE. Ivon in place. Will have nursing contact for staple removal date. Assessment & Plan (12/09/2022 5:20 PM CDT): Pt is s/p left external and common femoral artery endarterectomy with pericardial patch angioplasty, Left femoral-popliteal bypass graft with 8 mm Propaten [place]- Brandon on 12/02/[address] Monge. Continue wound care. On aspirin statin. Follow up was Vas outpatient Peripheral sensory neuropathy 11/27/2022 Assessment & Plan (12/09/2022 5:24 PM CDT): Symptoms controlled with gabapentin 600 mg b.i.d. Osteoarthritis of left knee 03/08/2022 Meningioma 11/13/2019 01/11/2023 Malignant neoplasm of unspec ified part of left bronchus or lung 11/01/2019 01/11/2023 Coronary artery disease invo lving [place] coronary artery of [place] heart without angina pectoris 08/22/2018 Assessment & Plan (12/09/2022 5:23 PM CDT): Denies any acute chest pain. Continue statin, aspirin, Imdur Pulmonary HTN 02/13/2018 Pleural effusion 08/16/2017 01/11/2023 Hypertension associated with diabetes 04/05/2017 Assessment & Plan (10/18/2024 3:45 PM ASSEMBLER MOVEMENT): Impression: Chronic with elevated blood pressure today. [...] dyslipidemia Assessment & Plan (09/30/2023 1:09 PM ASSEMBLER MOVEMENT): Impression: Chronic and stable. Plan: Continue Lipitor [...] Department Care Team Description 10/17/2024 9:30 AM ASSEMBLER MOVEMENT Office Visit [facility] Medical Group Vascular at [address] [place] [address] Krystle Grant NP Atherosclerosis of artery of extremity with intermittent claudication (Primary Dx); Type 2 diabetes mellitus with diabetic peripheral angiopathy without gangrene, with long-term current use of insulin (HCC); Hypertension associated with diabetes (HCC) 10/17/2024 Orders Only [facility] Vascular at [address] [place] [address] Brennan Paulino MD PVD (peripheral vascular disease) (Primary Dx) from Last 3 Months [...] Myocardial Infarction Alzheimer's disease Sister 1 Letitia Ruvalcaba Arthritis Sister 1 Letitia Gilbertgler Hypertension Sister [...] week 11/29/2022 How often do you attend [facility] or anabaptist services? More than 4 times per year 11/29/2022 Do you belong to any clubs o r organizations such as yarsanism groups, unions, fraternal or athletic groups, or [...] on file Legal Sex Female 2:02 AM ASSEMBLER MOVEMENT Gender Identity Not on file Sexual Orientation Not on file Obstetrics History Last Filed Vital Signs Vital Sign Reading Time Taken Comments Blood Pressure 195/84 10/17/2024 9:15 AM ASSEMBLER MOVEMENT Pulse 74 10/17/2024 9:15 AM ASSEMBLER MOVEMENT Temperature 36.4 C (97.5 F) 12/27/2022 11:50 AM CDT Respiratory Rate 16 12/27/2022 11:50 AM CDT Oxygen Saturation 99% 10/17/2024 9:15 AM ASSEMBLER MOVEMENT Inhaled Oxygen Concentration - - Weight 83.9 kg (185 lb) 10/17/2024 9:15 AM ASSEMBLER MOVEMENT Height 167.6 cm (5' 6 ) 10/17/2024 9:15 AM ASSEMBLER MOVEMENT Body Mass Index 29.86 10/17/2024 9:15 AM ASSEMBLER MOVEMENT Plan of Treatment Health Maintenance Due Date [...] 12/11, 10/15/2020, Additional history exists Covid-19 Vaccine (2023-2 5 season) 2024 11/11/2020, 10/09/2020 Influenza Vaccine (Season Ended) 2025 05/29/20, 05/11/2018 Zoster Vaccine Completed 11/10/2018, 07/24/2018 Medical Devices Implanted Type Area Associate Professor Plant Pathology Device Identifier Shelf Expiration Date Model / Serial / Lot Teleflex Medical Inc Weck Horizon 24 Cartridge Ligate Triangulate Cross Section Heart [id number] - [id number] Implanted:Qty: 2 on 12/02/2022 by Zeeshan Monge MD at [facility] Left: Femur Teleflex Medical Inc [id number] / / Wl Snyder [employer] Inc Snyder 8mm 80cm Stretch Thin Wall Graft Vascular Heparin Propaten [id number] - [id number] - [id number] Implanted:Qty: 1 on 12/02/2022 by Zeeshan Monge MD at [facility] Left: Femur Wl Snyder [employer] Inc [id number] 03/26/2026 [id number] / [id number] / [facility] Yenny Patch Vascuguard 0.88cm [id number] - [id number] Implanted:Qty: 1 on 12/02/2022 by Zeeshan Monge MD at [facility] Yenny [id number] / / [id number] Procedures Procedure Name Priority Date/Time Associated Diagnosis [...] was last reviewed 2021. Testing performed by: [facility], [address] [place] [address]., [address] Blood 12/27/2022 6:43 AM CDT 12/27/2022 7:02 AM CDT us Birgit Leon NP LAB BLOOD ORDERABLES Final Result Performing Organization Address City/[facility]/ZIP Co de Phone Number [facility] [address] [facility] [place] [address] * (ABNORMAL) Hemoglobin A1c (11/27/2022 9:56 PM CDT) Hgb A1C 7.3(H) 4.0 - 5.6 % [facility] Estimated Average Glucose 163 mg/dL [facility] Comment: The ADA recommends reporting an estimated Average Glucose (eAG) with all Hemoglobin A1c results using the equation derived from a study of 507 normal and diabetic adults. Minority populations were underrepresented and children were not included. (Diabetes Care 31:1873-7609, 2008). The eAG is not equivalent to a fasting glucose. Blood 11/27/2022 9:56 PM CDT 11/27/2022 10:09 PM CDT Deepika Roman MD LAB BLOOD ORDERABLES Final Re sult Performing Organization Address City/[facility] Co de Phone Number [facility] [address] [place] [address] from Last 3 Months or Most Recently Relevant to Health Maintenance Insurance MEDICARE [facility] MEDICARE SUPPLEMENT MEDICARE [facility]MERLY [facility] Advance Directives For more information, please contact: [phone] * Full Code (Latest Code Status on File) Date Activated Date Inactivated Comments 11/27/2022 8:45 PM 12/08/2022 6:29 PM Care Teams Cartridge Assembler Relationship Specialty Start Date End Date Sadia Cloud MD PCP - General Family Practice 02/14/23
--- OUTSIDE RECORDS SUMMARY | 2025-01-14 14:43 | XMS_ITS ---
Author Organization [facility] [address] Address [address] [place] [address] Care Team Providers Care Licensed Vocational Nurse Name Role Phone Sadia Cloud MD Primary Care Provider Active Problems Problem Noted Date Diagnosed Date Atherosclerosis of artery of extremity with intermittent claudication 10/18/2024 Assessment & Plan (10/18/2024 3:44 PM PACKERHEAD MACHINE OPERATOR): Impression: Patient is status post left femoral [...] 09/30/2023 Assessment & Plan (10/18/2024 3:45 PM PACKERHEAD MACHINE OPERATOR): Impression: Chronic and stable. Plan: Continue glimepiride Assessment & Plan (09/30/2023 1:09 PM PACKERHEAD MACHINE OPERATOR): Impression: Chronic with good glucose control. Plan: [...] for DVT proph. Pain controlled with PRN [place]. Assessment & Plan (12/16/2022 12:44 PM CDT): Complete abx as ordered. Continue wound care as above. PT/OT. Assessment & Plan (12/13/2022 11:22 AM CDT): Pain well controlled. Was started on nadia Oxy but does not believe needs. Will d/c. Continue [place] PRN - reduce Tyl and change to [...] noninvasives. Assessment & Plan (09/30/2023 1:07 PM PACKERHEAD MACHINE OPERATOR): Impression: Patient is status post left femoral [...] femoral-popliteal bypass graft with 8 mm Propaten [place]-Brandon on 12/02/[address] Monge. Ivon/sutures remain in place. Pain controlled. Continue gabapentin, norco PRN. HTWB with boot. Vascular did not comeover and see at [facility] this week. Staff to make appt for this week for vascular to see outpt. Dtr to have wound care training today. Assessment & Plan (12/23/2022 1:09 PM CDT): s/p left external and common femoral artery endarterectomy with pericardial patch angioplasty, Left femoral-popliteal bypass graft with 8 mm Propaten [place]-Brandon on 12/02/[address] Monge. [place]/sutures remain in place. Increased nerve pain last [...] femoral-popliteal bypass graft with 8 mm Propaten [place]-Brandon on 12/02/[address] Monge. SEE PAIN CONTROL ABOVE. [place] in place. Will have nursing contact for staple removal date. Assessment & Plan (12/09/2022 5:20 PM CDT): Pt is s/p left external and common femoral artery endarterectomy with pericardial patch angioplasty, Left femoral-popliteal bypass graft with 8 mm Propaten [place]- Brandon on 12/02/[address] Monge. Continue wound care. On aspirin statin. Follow up was Vas outpatient Peripheral sensory neuropathy 11/27/2022 Assessment & Plan (12/09/2022 5:24 PM CDT): Symptoms controlled with gabapentin 600 mg b.i.d. Osteoarthritis of left knee 03/08/2022 Meningioma 11/13/2019 01/11/2023 Malignant neoplasm of unspec ified part of left bronchus or lung 11/01/2019 01/11/2023 Coronary artery disease invo lving [place] coronary artery of [place] heart without angina pectoris 08/22/2018 Assessment & Plan (12/09/2022 5:23 PM CDT): Denies any acute chest pain. Continue statin, aspirin, Imdur Pulmonary HTN 02/13/2018 Pleural effusion 08/16/2017 01/11/2023 Hypertension associated with diabetes 04/05/2017 Assessment & Plan (10/18/2024 3:45 PM PACKERHEAD MACHINE OPERATOR): Impression: Chronic with elevated blood pressure today. [...] dyslipidemia Assessment & Plan (09/30/2023 1:09 PM PACKERHEAD MACHINE OPERATOR): Impression: Chronic and stable. Plan: Continue Lipitor [...]
--- OUTSIDE RECORDS SUMMARY | 2025-01-14 14:43 | XMS_ITS | Clinical Summary ---
Author Organization [facility] Address [address] [place] [address] Care Team Providers Care Phone Specialist Name Role Phone Sadia Cloud MD Primary [...] tablet Take 1.25 mg by mouth daily early childhood. Active lisinopril (PRINIVIL) 20 mg tablet Take 20 mg by mouth 2 times daily . Active metoprolol tartrate (LOPRESSOR) 100 mg tablet Take 100 mg by mouth daily. Active levothyroxine 75 mcg tablet Take 75 mcg by mouth daily early childhood. Active rivaroxaban (XARELTO) 20 mg Tablet Take [...] DAILY NEEDED 0 Active Calcium Cmb 2-D3-Min Wno94-Vnl (Citracal + Bone Density) 300-200-13.5 mg-unit-mg Tablet [...] on file Legal Sex Female 10:39 AM RESEARCH WORKER KITCHEN Gender Identity Not on file Sexual Orientation [...] MEDICARE PART A AND B BCBS SUPP [facility] SUPP MEDICARE PART A AND B Care Teams Phone Specialist Relationship Specialty Start Date End Date Sadia Cloud MD [address] [place] [phone] PCP - General Family Practice 06/09/23
--- OUTSIDE RECORDS SUMMARY | 2025-01-14 14:43 | XMS_ITS | Clinical Summary ---
Author Organization [facility] Address [address] [place] [address] Phone Care Team Providers Care Channel Turner Name Role Phone Hunter Engel MD Primary Care Provider [phone] Sonali Veliz MD Unavailable [phone] Viral Mclain Unavailable Denzel Avila MD Unavailable [phone] Allergies No known active allergies Medications ALPRAZolam [...] on file Legal Sex Female 8:56 AM DIGITAL PROJECT MANAGER Gender Identity Not on file Sexual Orientation Not on file Last Filed Vital Signs Vital Sign Reading Time Taken Comments Blood Pressure 158/80 09/28/2016 9:57 AM DIGITAL PROJECT MANAGER Pulse 75 09/28/2016 9:57 AM DIGITAL PROJECT MANAGER Temperature 37.3 C (99.1 F) 09/28/2016 9:57 AM DIGITAL PROJECT MANAGER Respiratory Rate 16 09/28/2016 9:57 AM DIGITAL PROJECT MANAGER Oxygen Saturation 96% 09/28/2016 9:57 AM DIGITAL PROJECT MANAGER Inhaled Oxygen Concentration - - Weight 74.4 kg (164 lb) 09/28/2016 9:57 AM DIGITAL PROJECT MANAGER Height 167.6 cm (5' 6 ) 09/28/2016 9:57 AM DIGITAL PROJECT MANAGER Body Mass Index 26.47 09/28/2016 9:57 AM DIGITAL PROJECT MANAGER Plan of Treatment Health Maintenance Due Date Last Done Comments Hepatitis C Virus (HCV) Screening 1945 TdaP [...] age to complete this topic Insurance MEDICARE [facility] Care Teams Channel Turner Relationship Specialty Start Date End Date Hunter Engel MD [address] [place] [id number] PCP - General Family Medicine 09/21/16 Sonali Veliz MD [address] [facility] [address] [place] [address] Consulting Physician Pulmonary Disease 09/21/16 Viral Mclain [address] [place] [address] [place] [address] Consulting Physician Medical Oncology 09/21/16 Denzel Avila MD [facility] [address] [place] [phone] Consulting Physician Radiation Oncology 09/29/16
[2025-01-14 19:44] LABS: Alanine Aminotransferase 56 U/L (6-35); Albumin Level 4.4 g/dL (3.5-5.1); Alkaline Phosphatase 113 U/L (38-126); Anion Gap 10 mmol/L (4-12); Aspartate Amino Transferase 52 U/L (14-36); Bilirubin,Total 0.8 mg/dL (0.2-1.3); Blood Urea Nitrogen 40 mg/dL (7-17); Calcium 9.9 mg/dL (8.4-10.2); Carbon Dioxide 28 mmol/L (22-30); Chloride 105 mmol/L (98-107); Estimated Glomerular Filt Rate 55; Glucose 116 mg/dL (65-110); Potassium 4.2 mmol/L (3.4-5.0); Sodium 143 mmol/L (137-145)
== END 2025-01-14 14:05 | disposition home or self-care (01) ==
LOC: ANHGOSHLAB 14:05
PROVIDERS: PCP Family Medicine; Visit Provider Family Medicine
DX: E03.9 Hypothyroidism, unspecified (principal); I10 Essential (primary) hypertension
CPT/HCPCS: 36415; 80053; 84443

== ENCOUNTER 2025-04-12 08:00 | Outpatient (CLI) | payer MEDICARE, SELFPAY ==
--- OUTSIDE RECORDS SUMMARY | 2025-04-12 08:04 | XMS_ITS | Referral Summary ---
Author Organization [facility] [address] Address [address] [place] [address] Care Team Providers Care Database Administrator Name Role Phone Sadia Cloud MD Primary Care Provider Encounters Date Type Department Care Team Description 01/15/2025 9:45 AM CDT Office Visit [facility] Cardiology at [address] [place] [address] Israel Quiros MD Other persistent atrial fibrillation (HCC) (Primary Dx); S/P drug eluting coronary stent placement from Last 3 Months Allergies No known active allergies Medications glimepiride (AMARYL) 4 mg tablet take 1 tablet (4MG) by oral route every day 0 2 Active multivitamin-mi j-plim-MY-vit K (MULTI FOR HER) 18 mg iron-600 [...] 10 units subq before dinner. 3 Active levothyroxine sodium (LEVOTHYROXINE ORAL) Take 25 mcg by mouth daily 3 Active cyanocobalamin (Vitamin B-12) 1,000 mcg tabletIndicatio ns:Prevention of Vitamin B12 Deficiency Take 1 tablet (1,000 mcg total) by mouth daily Active cholecalciferol 25 mcg (1,000 unit) tablet Take 1 tablet (1,000 Units total) by mouth daily Active latanoprost (XALATAN) 0.005 % ophthalmic solution 1 drop nightly 4 Active metoprolol XL (TOPROL-XL) 100 mg 24 hr tablet TAKE 1 & 1/2 (ONE & ONE-HALF) TABLETS BY MOUTH ONCE DAILY 135 tablet 1 5 Active nitroglycerin (NITROSTAT) 0.[address] 1 tablet (0.4 mg total) under the tongue every 5 (five) minutes as needed for chest pain 25 tablet 2 5 Active atorvastatin (LIPITOR) 40 mg tablet Take 1 tablet by mouth once daily 90 tablet 5 Active Active Problems Problem Noted Date Diagnosed Date S/P drug eluting coronary stent placement 2024 Atherosclerosis of artery of extremity with intermittent claudication 10/18/2024 Assessment & Plan (10/18/2024 3:44 PM PULP ROLLER): Impression: Patient is status post left femoral [...] 09/30/2023 Assessment & Plan (10/18/2024 3:45 PM PULP ROLLER): Impression: Chronic and stable. Plan: Continue glimepiride Assessment & Plan (09/30/2023 1:09 PM PULP ROLLER): Impression: Chronic with good glucose control. Plan: [...] for DVT proph. Pain controlled with PRN [place]. Assessment & Plan (12/16/2022 12:44 PM CDT): Complete abx as ordered. Continue wound care as above. PT/OT. Assessment & Plan (12/13/2022 11:22 AM CDT): Pain well controlled. Was started on nadia Oxy but does not believe needs. Will d/c. Continue [place] PRN - reduce Tyl and change to [...] PM CDT): Dc lispro - continue Novolin 16u qam + 10u qpm. Restart Metformin. [...] noninvasives. Assessment & Plan (09/30/2023 1:07 PM PULP ROLLER): Impression: Patient is status post left femoral [...] femoral-popliteal bypass graft with 8 mm Propaten [place] on 12/02/[address] Monge. [place]/sutures remain in place. Pain controlled. Continue gabapentin, norco PRN. HTWB with boot. Vascular did not come[place] and [place] [facility] [place] Staff to make appt for this week for vascular to see outpt. Dtr to have wound care training today. Assessment & Plan (12/23/2022 1:09 PM CDT): s/p left external and common femoral artery endarterectomy with pericardial patch angioplasty, Left femoral-popliteal bypass graft with 8 mm Propaten [place] on 12/02/[address] Monge. [place]/sutures remain [...] femoral-popliteal bypass graft with 8 mm Propaten [place] on 12/02/[address] Monge. SEE PAIN CONTROL ABOVE. [place] in place. Will have nursing contact for staple removal date. Assessment & Plan (12/09/2022 5:20 PM CDT): Pt is s/p left external and common femoral artery endarterectomy with pericardial patch angioplasty, Left femoral-popliteal bypass graft with 8 mm Propaten [place]- [place] on 12/02/[address] Monge. Continue wound care. On aspirin statin. Follow up was Vas outpatient Peripheral sensory neuropathy 11/27/2022 Assessment & Plan (12/09/2022 5:24 PM CDT): Symptoms controlled with gabapentin 600 mg b.i.d. Osteoarthritis of left knee 03/08/2022 Meningioma 11/13/2019 01/11/2023 Malignant neoplasm of unspec ified part of left bronchus or lung 11/01/2019 01/11/2023 Coronary artery disease invo lving [place] coronary artery of [place] heart without angina pectoris 08/22/2018 Assessment & Plan (12/09/2022 5:23 PM CDT): Denies any acute chest pain. Continue statin, aspirin, Imdur Pulmonary HTN 02/13/2018 Pleural effusion 08/16/2017 01/11/2023 Hypertension associated with diabetes 04/05/2017 Assessment & Plan (10/18/2024 3:45 PM PULP ROLLER): Impression: Chronic with elevated blood pressure today. [...] dyslipidemia Assessment & Plan (09/30/2023 1:09 PM PULP ROLLER): Impression: Chronic and stable. Plan: Continue Lipitor [...] often do you attend chur ch or advent services? More than 4 times per year 11/29/2022 Do you belong to any clubs o r organizations such as alevism groups, unions, fraternal or athletic groups, or [...] on file Legal Sex Female 2:02 AM PULP ROLLER Gender Identity Not on file Sexual Orientation Not on file Last Filed Vital Signs Vital Sign Reading Time Taken Comments Blood Pressure 142/78 01/15/2025 9:35 AM CDT Pulse 86 01/15/2025 9:35 AM CDT Temperature 36.4 C (97.5 F) 12/27/2022 11:50 AM CDT Respiratory Rate 16 12/27/2022 11:50 AM CDT Oxygen Saturation 98% 01/15/2025 9:35 AM CDT Inhaled Oxygen Concentration - - Weight 85 kg (187 lb 4.8 oz) 01/15/2025 9:35 AM CDT Height 167.6 cm (5' 6) 01/15/2025 9:35 AM CDT Body Mass Index 30.23 01/15/2025 9:35 AM CDT Plan of Treatment Not on file Medical Devices Implanted Type Area Accordion Maker Device Identifier Shelf Expiration Date Model / Serial / Lot [employer] Weck Horizon 24 Cartridge Ligate Triangulate Cross Section Heart [id number] - [id number] Implanted:Qty: 2 on 12/02/2022 by Zeeshan Monge MD at [facility] Left: Femur [employer] [id number] / / Wl [employer] [employer] [place] 8mm 80cm Stretch Thin Wall Graft Vascular Heparin Propaten [id number] - [id number] - [id number] Implanted:Qty: 1 on 12/02/2022 by Zeeshan Monge MD at [facility] Left: Femur Wl [employer] [id number] 03/26/2026 [id number] / [id number] / [facility] Yenny Patch Vascuguard 0.88cm [id number] - [id number] Implanted:Qty: 1 on 12/02/2022 by Zeeshan Monge MD at [facility] [employer] Yenny [id number] / / [id number] Procedures Procedure Name Priority Date/Time Associated Diagnosis [...] was last reviewed 2021. Testing performed by: [facility], [address] [place] [address]., [id number] Blood 12/27/2022 6:43 AM CDT 12/27/2022 7:02 AM CDT us Birgit Leon NP LAB BLOOD ORDERABLES Final Result [facility] [address] Department [place] [address] * (ABNORMAL) Hemoglobin A1c (11/27/2022 9:56 PM CDT) Hgb A1C 7.3(H) 4.0 - 5.6 % [facility] Estimated Average Glucose 163 mg/dL [facility] Comment: The ADA recommends reporting an estimated Average Glucose (eAG) with all Hemoglobin A1c results using the equation derived from a study of 507 normal and diabetic adults. Minority populations were underrepresented and children were not included. (Diabetes Care 31:8793-6683, 2008). The eAG is not equivalent to a fasting glucose. Blood 11/27/2022 9:56 PM CDT 11/27/2022 10:09 PM CDT us Deepika Roman MD LAB BLOOD ORDERABLES Final Re sult [facility] [address] [facility] Department [place] [address] from Last 3 Months or Most Recently Relevant to Health Maintenance Insurance MEDICARE [facility] MEDICARE SUPPLEMENT MEDICARE [facility] Advance Directives For more information, please contact: [phone] * Full Code (Latest Code Status on File) Date Activated Date Inactivated Comments 11/27/2022 8:45 PM 12/08/2022 6:29 PM Care Teams Database Administrator Relationship Specialty Start Date End Date Sadia Cloud MD PCP - General Family Practice 02/14/23
--- OUTSIDE RECORDS SUMMARY | 2025-04-12 08:04 | XMS_ITS | Encounter Summary ---
Author Organization [facility] Healthcare Address [address] [place] [address] Care Team Providers Care Disability Program Navigator Name Role Phone Johan Engel MD Primary Care Provider [phone] Sadia Cloud MD Primary Care Provider Encounter Details Date Type Department Care Team (Late st Contact Info) Description 12/07/2017 Orders Only [facility] Health Information Management [address] [place] [address] Scanning, Provider Social History Tobacco Use Types Packs/Day Years Used Date Smoking Tobacco: Former Smokeless Tobacco: Never Alcohol Use Standard Drinks/Week Comments No 0 (1 standard drink = 0.6 oz pur e alcohol) Comments Unknown Sex and Gender Information Value Date Recorded Sex Assigned at Not on file Legal Sex Female 2:02 AM BAND MANAGER Gender Identity Not on file Sexual Orientation Not on file documented as of this encounter Plan of Treatment Not on file documented as of this encounter Procedures Procedure Name Priority Date/Time Associated Diagnosis Comments PULMONARY - RESULT SCAN 12/07/2017 documented in this encounter Results * PULMONARY - RESULT SCAN (12/07/2017) Anatomical Region Laterality Modality Other us Provider Scanning Edited Result - Final documented in this encounter Visit Diagnoses Not on filedocumented in this encounter Care Teams Disability Program Navigator Relationship Specialty Start Date End Date Johan Engel MD [address] [place] [address] PCP - General 11/13/15 02/13/23 Sadia Cloud MD [address] [place] [address] PCP - General Family Practice 02/14/23 documented as of this encounter
--- OUTSIDE RECORDS SUMMARY | 2025-04-12 08:04 | XMS_ITS | Clinical Summary ---
Author Organization [facility] [address] Address [address] [place] [address] Care Team Providers Care Zigzag Elastic Attacher Name Role Phone Sadia Cloud MD Primary Care Provider Allergies No known active allergies Medications glimepiride (AMARYL) 4 mg tablet take 1 tablet (4MG) by oral route every day 0 2 Active multivitamin-mi s-mwot-WT-vit K (MULTI FOR HER) 18 mg iron-600 [...] 10/18/2024 Assessment & Plan (10/18/2024 3:44 PM SHEET METAL LAY OUT WORKER): Impression: Patient is status post left femoral [...] 09/30/2023 Assessment & Plan (10/18/2024 3:45 PM SHEET METAL LAY OUT WORKER): Impression: Chronic and stable. Plan: Continue glimepiride Assessment & Plan (09/30/2023 1:09 PM SHEET METAL LAY OUT WORKER): Impression: Chronic with good glucose control. Plan: [...] for DVT proph. Pain controlled with PRN [place]. Assessment & Plan (12/16/2022 12:44 PM CDT): Complete abx as ordered. Continue wound care as above. PT/OT. Assessment & Plan (12/13/2022 11:22 AM CDT): Pain well controlled. Was started on nadia Oxy but does not believe needs. Will d/c. Continue [place] PRN - reduce Tyl and change to [...] noninvasives. Assessment & Plan (09/30/2023 1:07 PM SHEET METAL LAY OUT WORKER): Impression: Patient is status post left femoral [...] femoral-popliteal bypass graft with 8 mm Propaten [place] on 12/02/[address] Monge. Ivon/sutures remain in place. Pain controlled. Continue gabapentin, norco PRN. HTWB with boot. Vascular did [place] and [place] [facility] [place] Staff to make appt for this week for vascular to see outpt. Dtr to have wound care training today. Assessment & Plan (12/23/2022 1:09 PM CDT): s/p left external and common femoral artery endarterectomy with pericardial patch angioplasty, Left femoral-popliteal bypass graft with 8 mm Propaten [place]-Br[place] on 12/02/[address] oMnge. [place]/sutures remain in place. Increased nerve pain last [...] femoral-popliteal bypass graft with 8 mm Propaten [place] on 12/02/[address] Monge. SEE PAIN CONTROL ABOVE. [place] in place. Will have nursing contact for staple removal date. Assessment & Plan (12/09/2022 5:20 PM CDT): Pt is s/p left external and common femoral artery endarterectomy with pericardial patch angioplasty, Left femoral-popliteal bypass graft with 8 mm Propaten [place]- [place] on 12/02/[address] Monge. Continue wound care. On aspirin statin. Follow up was Vas outpatient Peripheral sensory neuropathy 11/27/2022 Assessment & Plan (12/09/2022 5:24 PM CDT): Symptoms controlled with gabapentin 600 mg b.i.d. Osteoarthritis of left knee 03/08/2022 Meningioma 11/13/2019 01/11/2023 Malignant neoplasm of unspec ified part of left bronchus or lung 11/01/2019 01/11/2023 Coronary artery disease invo lving [place] coronary artery of [place] heart without angina pectoris 08/22/2018 Assessment & Plan (12/09/2022 5:23 PM CDT): Denies any acute chest pain. Continue statin, aspirin, Imdur Pulmonary HTN 02/13/2018 Pleural effusion 08/16/2017 01/11/2023 Hypertension associated with diabetes 04/05/2017 Assessment & Plan (10/18/2024 3:45 PM SHEET METAL LAY OUT WORKER): Impression: Chronic with elevated blood pressure today. [...] dyslipidemia Assessment & Plan (09/30/2023 1:09 PM SHEET METAL LAY OUT WORKER): Impression: Chronic and stable. Plan: Continue Lipitor [...] Description 01/15/2025 9:45 AM CDT Office Visit [facility] Cardiology at [address] [place] [address] Israel Quiros MD Other persistent atrial fibrillation (HCC) (Primary Dx); S/P drug eluting coronary stent placement from Last 3 Months Immunizations Immunization Administration [...] 1 Letitia Ruvalcaba Arthritis Sister 1 Letitia Ruvalcaba Hypertension Sister 1 Letitia Ruvalcaba Memory loss [...] often do you attend chur ch or orthodoxy services? More than 4 times per year 11/29/2022 Do you belong to any clubs o r organizations such as rastafarian groups, unions, fraternal or athletic groups, or [...] on file Legal Sex Female 2:02 AM SHEET METAL LAY OUT WORKER Gender Identity Not on file Sexual Orientation [...] 01/15/2025 9:35 AM CDT Plan of Treatment Health Maintenance [...] Additional history exists Lipid Panel 02/15/2024 02/14/2023, 0412/2021, 10/15/2020, Additional history exists Covid-19 Vaccine (2023-2 5 season) 2024 11/11/2020, 10/09/2020 Influenza Vaccine (#1) 2025 05/29/2019, 2017 Zoster Vaccine Completed 11/10/2018, 07/24/2018 Medical Devices Implanted Type Area Ocean Transportation Intermediary Device Identifier Shelf Expiration Date Model / Serial / Lot [employer] Weck Horizon 24 Cartridge [place] Triangulate Cross Section Heart [id number] - [id number] Implanted:Qty: 2 on 12/02/2022 by Zeeshan Monge MD at [facility] Left: Femur [employer] Inc [id number] / / Wl [employer] [place] 8mm 80cm Stretch Thin Wall Graft Vascular Heparin Propaten [id number] - [id number] - [id number] Implanted:Qty: 1 on 12/02/2022 by Zeeshan Monge MD at [facility] Left: Femur Wl [employer] Inc [id number] 03/26/2026 [id number] / [id number] / [facility] Yenny Patch Vascuguard 0.88cm [id number] - [id number] Implanted:Qty: 1 on 12/02/2022 by Zeeshan Monge MD at [facility] Yenny [id number] / / [id number] Procedures Procedure Name Priority Date/Time Associated Diagnosis [...] was last reviewed 2021. Testing performed by: [facility], [address] [place] [address]., [address] Blood 12/27/2022 6:43 AM CDT 12/27/2022 7:02 AM CDT Birgit Leon NP LAB BLOOD ORDERABLES Final Result [facility] [address] Department [place] [address] * (ABNORMAL) Hemoglobin A1c (11/27/2022 9:56 PM CDT) Hgb A1C 7.3(H) 4.0 - 5.6 % [facility] Estimated Average Glucose 163 mg/dL [facility] Comment: The ADA recommends reporting an estimated Average Glucose (eAG) with all Hemoglobin A1c results using the equation derived from a study of 507 normal and diabetic adults. Minority populations were underrepresented and children were not included. (Diabetes Care 31:0327-3999, 2008). The eAG is not equivalent to a fasting glucose. Blood 11/27/2022 9:56 PM CDT 11/27/2022 10:09 PM CDT us Deepika Roman MD LAB BLOOD ORDERABLES Final Re sult [facility] [address] [facility] Department [place] [address] from Last 3 Months or Most Recently Relevant to Health Maintenance Insurance MEDICARE [facility] MEDICARE SUPPLEMENT MEDICARE [facility] [address] [place] [phone] Advance Directives For more information, please contact: [phone] * Full Code (Latest Code Status on File) Date Activated Date Inactivated Comments 11/27/2022 8:45 PM 12/08/2022 6:29 PM Care Teams Zigzag Elastic Attacher Relationship Specialty Start Date End Date Sadia Cloud MD PCP - General Family Practice 02/14/23
--- OUTSIDE RECORDS SUMMARY | 2025-04-12 08:04 | XMS_ITS | Clinical Summary ---
Author Organization [facility] Address [address] [place] [address] Care Team Providers Care Truck Despatcher Name Role Phone Sadia Cloud MD Primary [...] tablet Take 1.25 mg by mouth daily coupler. Active lisinopril (PRINIVIL) 20 mg tablet Take 20 mg by mouth 2 times daily . Active metoprolol tartrate (LOPRESSOR) 100 mg tablet Take 100 mg by mouth daily. Active levothyroxine 75 mcg tablet Take 75 mcg by mouth daily coupler. Active rivaroxaban (XARELTO) 20 mg Tablet Take [...] DAILY NEEDED 0 Active Calcium Cmb 2-D3-Min Rhu15-Idm (Citracal + Bone Density) 300-200-13.5 mg-unit-mg Tablet [...] on file Legal Sex Female 10:39 AM TRANSFORMATION CONSULTANT Gender Identity Not on file Sexual Orientation [...] 9:37 AM CDT Height 167.6 cm (5' 6) 05/29/2021 9:37 AM CDT Body Mass Index [...] MONTHS 01/18/20242022, 11/28/2022, 02/19/2022, Additional history exists COVID-19 Vaccine (3 - 2023-2 5 season) 2024 11/11/2020, 10/09/2020 INFLUENZA VACCINE (#1) 2025 05/29/2019, 2017 ZOSTER VACCINE Completed 11/10/2018, 07/24/2018 Insurance MEDICARE PART A AND B BCBS SUPP [facility] SUPP MEDICARE PART A AND B Care Teams Truck Despatcher Relationship Specialty Start Date End Date Sadia Cloud MD [address] [place] [id number] PCP - General Family Practice 06/09/23
--- OUTSIDE RECORDS SUMMARY | 2025-04-12 08:04 | XMS_ITS ---
Author Organization [facility] [address] Address [address] [place] [address] Care Team Providers Care Buccaro Name Role Phone Sadia Cloud MD Primary Care Provider Active Problems Problem Noted Date Diagnosed Date S/P drug eluting coronary stent placement 2024 Atherosclerosis of artery of extremity with intermittent claudication 10/18/2024 Assessment & Plan (10/18/2024 3:44 PM TRAWL NET MAKER): Impression: Patient is status post left femoral [...] 09/30/2023 Assessment & Plan (10/18/2024 3:45 PM TRAWL NET MAKER): Impression: Chronic and stable. Plan: Continue glimepiride Assessment & Plan (09/30/2023 1:09 PM TRAWL NET MAKER): Impression: Chronic with good glucose control. Plan: [...] for DVT proph. Pain controlled with PRN [place]. Assessment & Plan (12/16/2022 12:44 PM CDT): Complete abx as ordered. Continue wound care as above. PT/OT. Assessment & Plan (12/13/2022 11:22 AM CDT): Pain well controlled. Was started on nadia Oxy but does not believe needs. Will d/c. Continue [place] PRN - reduce Tyl and change to [...] noninvasives. Assessment & Plan (09/30/2023 1:07 PM TRAWL NET MAKER): Impression: Patient is status post left femoral [...] femoral-popliteal bypass graft with 8 mm Propaten [place]-Brandon on 12/02/[address] Monge. Ivon/sutures remain in place. Pain controlled. Continue gabapentin, norco PRN. HTWB with boot. Vascular did not comeover and see at [facility] [place] this week. Staff to make appt for this week for vascular to see outpt. Dtr to have wound care training today. Assessment & Plan (12/23/2022 1:09 PM CDT): s/p left external and common femoral artery endarterectomy with pericardial patch angioplasty, Left femoral-popliteal bypass graft with 8 mm Propaten [place]-Br[place] on 12/02/[address] Monge. I[place]/sutures remain [...] femoral-popliteal bypass graft with 8 mm Propaten [place] on 12/02/[address] Monge. SEE PAIN CONTROL ABOVE. [place] in place. Will have nursing contact for staple removal date. Assessment & Plan (12/09/2022 5:20 PM CDT): Pt is s/p left external and common femoral artery endarterectomy with pericardial patch angioplasty, Left femoral-popliteal bypass graft with 8 mm Propaten [place]- [place] on 12/02/[address] Monge. Continue wound care. On aspirin statin. Follow up was Vas outpatient Peripheral sensory neuropathy 11/27/2022 Assessment & Plan (12/09/2022 5:24 PM CDT): Symptoms controlled with gabapentin 600 mg b.i.d. Osteoarthritis of left knee 03/08/2022 Meningioma 11/13/2019 01/11/2023 Malignant neoplasm of unspec ified part of left bronchus or lung 11/01/2019 01/11/2023 Coronary artery disease invo lving [place] coronary artery of [place] heart without angina pectoris 08/22/2018 Assessment & Plan (12/09/2022 5:23 PM CDT): Denies any acute chest pain. Continue statin, aspirin, Imdur Pulmonary HTN 02/13/2018 Pleural effusion 08/16/2017 01/11/2023 Hypertension associated with diabetes 04/05/2017 Assessment & Plan (10/18/2024 3:45 PM TRAWL NET MAKER): Impression: Chronic with elevated blood pressure today. [...] dyslipidemia Assessment & Plan (09/30/2023 1:09 PM TRAWL NET MAKER): Impression: Chronic and stable. Plan: Continue Lipitor [...]
--- OUTSIDE RECORDS SUMMARY | 2025-04-12 08:04 | XMS_ITS | Clinical Summary ---
Author Organization [facility] Address [address] [place] [address] Phone Care Team Providers Care Cash Crop Farmer Name Role Phone Hunter Engel MD Primary Care Provider [phone] Sonali Veliz MD Unavailable [phone] Viral Mclain Unavailable Denzel Avila MD Unavailable [phone] Allergies No known active allergies Medications ALPRAZolam [...] on file Legal Sex Female 8:56 AM INDUSTRIAL GARAGE SERVICER Gender Identity Not on file Sexual Orientation Not on file Last Filed Vital Signs Vital Sign Reading Time Taken Comments Blood Pressure 158/80 09/28/2016 9:57 AM INDUSTRIAL GARAGE SERVICER Pulse 75 09/28/2016 9:57 AM INDUSTRIAL GARAGE SERVICER Temperature 37.3 C (99.1 F) 09/28/2016 9:57 AM INDUSTRIAL GARAGE SERVICER Respiratory Rate 16 09/28/2016 9:57 AM INDUSTRIAL GARAGE SERVICER Oxygen Saturation 96% 09/28/2016 9:57 AM INDUSTRIAL GARAGE SERVICER Inhaled Oxygen Concentration - - Weight 74.4 kg (164 lb) 09/28/2016 9:57 AM INDUSTRIAL GARAGE SERVICER Height 167.6 cm (5' 6) 09/28/2016 9:57 AM INDUSTRIAL GARAGE SERVICER Body Mass Index 26.47 09/28/2016 9:57 AM INDUSTRIAL GARAGE SERVICER Plan of Treatment Health Maintenance Due Date Last Done Comments Hepatitis C Virus (HCV) Screening 1945 TdaP Immunization 1945 Pneumococcal Immunization (50+ years) (1 of 2 - PCV) 1963 Respiratory Syncytial Virus (RSV) Immunization (Adult) (1 - 1-dose 75+ series) 2019 SARS-COV-2 Immunization ( season) 2024 12/25/2021, 07/21/2021, 11/11/2020, Additional history exists Influenza Immunization (#1) 2025 05/29/2019, 0 05/11/2018 Zoster Immunization Completed 11/10/2018, 8 Hepatitis B Immunization Aged Out No longer eligible based on patient's age to complete this topic Human Papillomavirus (HPV) Immunization Aged Out No longer eligible based on patient's age to complete this topic Meningococcal Immunization (ACWY) Aged Out No longer eligible based on patient's age to complete this topic Rotavirus Immunization Aged Out No lo nger eligible based on patient's age to complete this topic Insurance MEDICARE [facility] Care Teams Cash Crop Farmer Relationship Specialty Start Date End Date Hunter Engel MD [address] [place] [address] PCP - General Family Medicine 09/21/16 Sonali Veliz MD [address] [place] [address] Consulting Physician Pulmonary Disease 09/21/16 Viral Mclain [address] [place] [address] Consulting Physician Medical Oncology 09/21/16 Denzel Avila MD [address] [place] [address] Consulting Physician Radiation Oncology 09/29/16
[2025-04-12 14:44] LABS: Hematocrit 48.3 % (37.0-47.0); Hemoglobin 15.8 g/dL (12.0-15.0); Immature Granulocyte Percent A 0.3 % (0-0.5); Lymphocytes Absolute Auto 0.89 K/mm3 (0.9-3.2); Mean Corpuscular HGB Conc 32.7 g/dl (32-36); Mean Corpuscular Hemoglobin 30.2 pg (26-34); Mean Corpuscular Volume 92.2 fl (80-100); Nucleated Red Blood Cells Absolute Auto 0.000 K/mm3 (0.0-0.012); Nucleated Red Blood Cells Perc 0.0 % (0.0-0.2); Platelet Count Result 168 k/mm3 (150-375); Red Blood Count 5.24 M/mm3 (4.2-5.4); White Blood Count 8.9 K/mm3 (4.5-10.0)
[2025-04-12 15:13] LABS: Hemoglobin A1C 6.2 % (<5.7)
[2025-04-12 15:15] LABS: MALB Creatinine Ratio 32.0 mg/g (0-30)
[2025-04-12 15:22] LABS: Alanine Aminotransferase 41 U/L (6-35); Albumin Level 4.3 g/dL (3.5-5.1); Alkaline Phosphatase 101 U/L (38-126); Anion Gap 7 mmol/L (4-12); Aspartate Amino Transferase 59 U/L (14-36); Bilirubin,Total 0.7 mg/dL (0.2-1.3); Blood Urea Nitrogen 41 mg/dL (7-17); Calcium 9.9 mg/dL (8.4-10.2); Carbon Dioxide 28 mmol/L (22-30); Chloride 102 mmol/L (98-107); Cholesterol 126 mg/dL (0-200); Estimated Glomerular Filt Rate 45; Glucose 102 mg/dL (65-110); HDL Direct 27 mg/dL; Potassium 4.2 mmol/L (3.4-5.0); Sodium 137 mmol/L (137-145); Total Protein 7.7 g/dL (6.3-8.2); Triglycerides 116 mg/dL (<150)
[2025-04-12 15:27] LABS: Thyroid Stimulating Hormone Reflex 0.250 uIU/mL (0.465-4.68)
[2025-04-12 16:43] LABS: Free T4 Free Thyroxine Reflex 1.47 ng/dL (0.78-2.19)
[2025-04-12 17:30] LABS: Total Triiodothyronine (T3) 1.13 NG/ML (0.82-1.58)
== END 2025-04-12 08:01 | disposition home or self-care (01) ==
LOC: ANHGOSHLAB 08:01
PROVIDERS: PCP Nurse Practitioner Family; Visit Provider Nurse Practitioner Family
DX: E78.5 Hyperlipidemia, unspecified (principal); E03.9 Hypothyroidism, unspecified; I10 Essential (primary) hypertension; E11.9 Type 2 diabetes mellitus without complications
CPT/HCPCS: 36415; 80053; 80061; 82043; 83036; 84439; 84443; 84480; 85025

== ENCOUNTER 2025-06-13 06:36 | Outpatient (CLI) | payer MEDICARE, SELFPAY ==
--- NOTE | ~2025-06-13 | CT_ITS ---
Exam: CT chest without contrast Clinical History: [Malignant neoplasm of left bronchus ] Comparison: [ Chest CT 06/19/2024] Technique: Multiple axial CT images of the chest without with IV contrast. Sagittal and coronal reformatted images were obtained. FINDINGS: Lungs and pleura: [ Status post left upper lobectomy]. Small left-sided pleural effusion. Redemonstration of linear scarring and postoperative distortion in the left lung. Grossly stable 3 mm right upper lobe pulmonary nodule. Grossly stable 12 mm groundglass nodule in the left lung. Grossly stable 7 mm nodule at the anterior left lung base. There are a few additional stable small pulmonary nodules and groundglass opacities. No new pulmonary nodule identified. Mediastinum and pulmonary brandyn: [ No mass or adenopathy.] Axillary/intramammary and supraclavicular: [ No mass or adenopathy.] There are a few nonenlarged, nonspecific mediastinal and hilar lymph nodes similar to the prior study. Heart and great vessels: [ Normal heart size.[ [ No pericardial effusion.] [ No aneurysm.] Coronary artery calcifications are present. Moderate atherosclerotic disease in the thoracic aorta. Thyroid gland: Left thyroid lobe is enlarged and heterogeneous with a few scattered calcifications similar to the prior study. Probable prior right hemithyroidectomy. Upper Abdomen: Small hiatal hernia. Osseous structures: [ No acute fracture or destructive lesion.] [ Multilevel degenerative change in the visualized spine.] Additional findings: [ None of significance.] IMPRESSION: 1. Overall, grossly stable chest CT study as compared to the chest CT study from 06/19/2024. 2. Stable pulmonary nodules and groundglass opacities. 3. Status post left upper lobectomy 4. Small left pleural effusion. Reviewed, dictated and finalized at location Q. IMPRESSION: 1. Overall, grossly stable chest CT study as compared to the chest CT study fro 06/19/2024. 2. Stable pulmonary nodules and groundglass opacities. 3. Status post left upper lobectomy 4. Small left pleural effusion.
--- NOTE | ~2025-06-13 | XR_ITS ---
XR chest 2V 06/13/2025 06:55 Indication: Pleural effusion Procedure: PA and lateral views of the chest Comparison: Comparison to multiple prior studies sequentially, with oldest reviewed study dated 05/06/2018. Findings: Persistent left basilar atelectasis. No focal pneumonia, edema, pleural effusion or pneumothorax. Heart size normal. There is atherosclerosis of the aorta. No acute osseous abnormality. Impression: 1: Left basilar atelectasis. Reviewed, dictated and finalized at location B. Impression: 1: Left basilar atelectasis.
--- OUTSIDE RECORDS SUMMARY | 2025-06-13 06:39 | XMS_ITS | Encounter Summary ---
Author Organization [facility] Address [address] [place] [address] Care Team Providers Care Respiratory Scientist Name Role Phone Johan Engel MD Primary Care Provider [phone] Sadia Cloud MD Primary Care Provider Encounter Details Date Type Department Care Team (Late st Contact Info) Description 12/07/2017 [place] [facility] [place] [address] [place] [address] Scanning, Provider Social History Tobacco Use Types Packs/Day Years Used Date Smoking Tobacco: Former Smokeless Tobacco: Never Alcohol Use Standard Drinks/Week Comments No 0 (1 standard drink = 0.6 oz pur e alcohol) Comments Unknown Sex and Gender Information Value Date Recorded Sex Assigned at Not on file Legal Sex Female 2:02 AM EC TEACHER Gender Identity Not on file Sexual Orientation [...] on filedocumented in this encounter Care Teams Respiratory Scientist Relationship Specialty Start Date End Date Johan Engel MD [address] [place] [address] PCP - General 11/13/15 02/13/23 Sadia Cloud MD [address] [place] [address] PCP - General Family Practice 02/14/23 documented as of this encounter
--- OUTSIDE RECORDS SUMMARY | 2025-06-13 06:39 | XMS_ITS | Data Portability ---
Author Organization [place] [facility], Main Office Address [address] [place] [address] Care Team Providers Care Histotechnologist Name Role Phone HAROLDO MARCELINO Primary Care Provider [phone] HAROLDO MARCELINO Referring Provider Assessment Encounter Date Assessment Date Assessment LastModified by Organization Details LastModified Time 11/23/2024 11/23/2024 The patient has severe primary osteoarthritis left knee joint as described. Under sterile conditions I injected the patient's left knee joint in the office with Euflexxa injection number 2. I will see her back next week for the 3rd injection left knee she voiced understanding and agreed with the above plan she will call for any further problems difficulties or questions. Not available 11/23/2024 10:34:42 11/29/2024 11/29/2024 The patient has severe primary osteoarthritis left knee joint. Under sterile conditions I injected the patient's left knee joint in the office with Euflexxa injection number 3. The patient tolerated the procedure well. I will see her back as needed we can do this again in 6 months if necessary versus cortisone in between she voiced understanding and agreed with the above plan she will call for any further problems difficulties or questions. Not available 11/29/2024 10:08:13 02/28/2025 02/28/2025 The patient has severe primary osteoarthritis left knee joint. Under sterile conditions I injected the patient's left knee joint in the office today with 4 cc of 0.5% bupivacaine and 20 mg of Kenalog. Patient tolerated procedure well. I will see her back as needed we can do this again in 3 months if necessary versus gel shots in the future. She voiced understanding and agreed with the above plan. Not available 02/28/2025 10:20:15 05/31/2025 05/31/2025 The patient has severe primary osteoarthritis left knee joint as described. At her request under sterile conditions I injected the patient's left knee joint in the office today with Orthovisc injection number 1. I will see her back next week for the 2nd injection left knee she voiced understanding agrees above plan she will call for any further problems difficulties or questions. Not available 05/31/2025 10:31:42 06/07/2025 06/07/2025 The patient has severe primary osteoarthritis of the left knee joint as described. Under sterile conditions I injected the patient's left knee joint in the office today with Orthovisc injection number 2. I will see her back next week for the 3rd injection left knee she voiced understanding agrees above plan she will call for any further problems difficulties or questions. Not available 06/07/2025 10:37:34 Plan of Treatment Reminders Order Date Submit Date Provider Last Modified By Organization Details Last Modified Time Details Appointments Any 5 2024 09:30A M SARAH Smiley Not available Not available Not available Lab None recorded. Referral None recorded. Procedures knee aspiratio n/injecti on (PROC) 2024 025 In-Office Order, Internal Use Only DO Not Attach Compendium DO Not Attach Compendium, Do Not Delete/merge, [id number] 06/07/2025 10:26:49 knee aspiratio n/injecti on (PROC) 2024 025 In-Office Order, Internal Use Only DO Not Attach Compendium DO Not Attach Compendium, Do Not Delete/merge, [id number] 05/31/2025 10:22:08 injection /aspirati on joint/bur sa (PROC) 2024 025 In-Office Order, Internal Use Only DO Not Attach Compendium DO Not Attach Compendium, Do Not Delete/merge, [id number] 02/28/2025 10:05:57 knee aspiratio n/injecti on (PROC) 2024 025 In-Office Order, Internal Use Only DO Not Attach Compendium DO Not Attach Compendium, Do Not Delete/merge, [id number] 11/29/2024 09:44:24 knee aspiratio n/injecti on (PROC) 2024 025 In-Office Order, Internal Use Only DO Not Attach Compendium DO Not Attach Compendium, Do Not Delete/merge, [id number] 11/23/2024 10:24:17 Surgeries None recorded. Imaging None recorded. Medication Orders ORTHOVISC 30 mg/2 mL intra-art icular syringe [address] [facility], [address], [place], [place], [address], 06/07/2025 12:27:00 ORTHOVISC 30 mg/2 mL intra-art icular syringe [address] [place] [address] [facility], [address], [place], [address], 05/31/2025 12:09:55 bupivacai ne HCl 0.5 % (5 mg/mL) injection solution [address] [place] [address] [facility], [address], [place], [address], 02/28/2025 10:36:11 Kenalog 10 mg/mL suspensio n for injection [address] [place] [address] [facility], [address], [place], [address], 02/28/2025 10:36:11 Euflexxa 10 mg/mL (mw 2.4-3.6 million) intra-art icular syringe [address] [facility], [address], [place], [place], [address], 11/29/2024 10:31:59 Euflexxa 10 mg/mL (mw 2.4-3.6 million) intra-art icular syringe 2024 025 [email or web address], [address], [place], [address], 11/23/2024 11:53:01 Patient TargetsNo targets recorded. Patient InstructionsNo instructions recorded. Reason for Referral None Reported. Problems Name Problem SNOMED Code Status Onset Date Resolution Date Notes Provider Name and Address Organization Details Recorded Time Spinal stenosis of lumbar region 32529156 Active Not Available [facility] 3 17:28:54 Enthesopat hy of hip region 27922768 Active Not Available [facility] 3 17:28:54 Knee pain Active Not Available [facility] 3 17:28:54 Osteoarthr itis 333482872 Active Not Available [facility] 3 17:28:54 Osteoarthr itis of left knee joint 1879719316555 09 Active 2021 Nya Ordoñez CNA null, [facility] [employer] [facility] 5 10:23:36 Pain of left knee joint 9816904714987 07 Active 2022 Nya Ordoñez CNA null, [facility] [employer] 5 10:23:51 Acquired trigger finger of left ring finger 7124003446720 09 Active 2023 Adriana Youngblood ATC L null, [facility] [employer] 4 12:10:32 Problem Notes None recorded. Procedures Surgical History Date Name Laterality Status Provider Name and Address Organization Details Recorded Time Thyroid Surgery completed Not Available [facility] 11/10/2022 17:28:29 Foot completed Nya Ordoñez CNA CT - [facility] [employer] [facility] 11/15/2024 10:02:12 Imaging Results None recorded. Procedure Notes None recorded. Medical Equipment None Reported. Allergies No known drug allergies Medications Name Sig Start Date Stop Date Status Note LastModified by Organization Details LastModified Time amoxicill in 500 mg capsule TAKE 4 CAPSULES BY MOUTH 1 HOUR PRIOR TO APPOINTM ENT active Not Available Not Available No t Available latanopro st 0.005 % eye drops INSTILL 1 DROP INTO EACH EYE AT BEDTIME active Not Available Not Available No t Available atorvasta tin 40 mg tablet TAKE 1 TABLET BY MOUTH ONCE DAILY active Not Available Not Available No t Available metformin 500 mg tablet TAKE 2 TABLETS BY MOUTH TWICE DAILY 11/10 completed Not Available Not Available Not Available Xylocaine -MPF 20 mg/mL (2 %) injection solution Take 80 mg by injectio n route. 09/02 completed Not Available Not Available Not Available Novolin 70/30 U-100 Insulin 100 unit/mL subcutane ous suspensio n INJECT 26 UNITS SUBCUTAN EOUSLY TWICE DAILY active Not Available Not Available No t Available prednison e 10 mg tablet 07/16 completed Not Available Not Available Not Available atorvasta tin 20 mg tablet TAKE 1 TABLET BY MOUTH ONCE DAILY 07/21 completed Not Available Not Available Not Available diltiazem ER 180 mg capsule,2 4 hr,extend ed release TAKE 1 CAPSULE BY MOUTH ONCE DAILY active Not Available Not Available No t Available clindamyc in HCl 300 mg capsule TAKE 1 CAPSULE BY MOUTH TWICE DAILY 11/10 completed Not Available Not Available Not Available ofloxacin 0.3 % eye drops INSTILL 1 DROP THREE TIMES DAILY STARTING 2 DAYS PRIOR TO SURGERY AND CONTINUE FOR 1 WEEK AFTER SURGERY. 11/10 completed Not Available Not Available Not Available valacyclo vir 1 gram tablet TAKE 1 TABLET BY MOUTH BY MOUTH EVERY 8 HOURS FOR 7 DAYS 11/15 completed Not Available Not Available Not Available ranitidin e 300 mg tablet 07/12 completed Not Available Not Available Not Available hydrocodo ne 5 mg-acetam inophen 325 mg tablet TAKE 1 TABLET BY MOUTH EVERY 4 HOURS NEEDED FOR PAIN 11/10 completed Not Available Not Available Not Available lisinopri l 20 mg tablet TAKE 2 TABLETS BY MOUTH ONCE DAILY AT BEDTIME 11/10 completed Not Available Not Available Not Available bupivacai ne HCl 0.5 % (5 mg/mL) injection solution Take 20 mg by injectio n route. 2024 active Not Available Not Available Not Avai lable metoprolo l succinate ER 100 mg tablet,ex tended release 24 hr TAKE 1 & 1/2 (ONE & ONE-HALF ) TABLETS BY MOUTH ONCE DAILY active Not Available Not Available No t Available digoxin 250 mcg (0.25 mg) tablet 07/12 completed Not Available Not Available Not Available sulfameth oxazole 800 mg-trimet hoprim 160 mg tablet TAKE 1 TABLET BY MOUTH TWICE DAILY 11/10 completed Not Available Not Available Not Available vancomyci n 125 mg capsule TAKE 1 CAPSULE BY MOUTH 4 TIMES DAILY FOR 10 DAYS THEN 1 TWICE DAILY FOR 7 DAYS THEN 1 ONCE DAILY FOR 7 DAYS THEN 1 EVERY OTHER DAY FOR 14 DAYS 11/10 completed Not Available Not Available Not Available simvastat in 40 mg tablet 07/12 completed Not Available Not Available Not Available levothyro xine 75 mcg tablet 11/10 completed Not Available Not Available Not Available ketorolac 0.5 % eye drops INSTILL 1 DROP THREE TIMES DAILY STARTING 2 DAYS PRIOR TO SURGERY, CONTINUI NG FOR 1 WEEK AFTER SURGERY 11/10 completed Not Available Not Available Not Available levothyro xine 100 mcg tablet 07/12 completed Not Available Not Available Not Available alprazola m 0.5 mg tablet TAKE 1 TABLET BY MOUTH TWICE DAILY NEEDED FOR ANXIETY active Not Available Not Available No t Available prednisol one acetate 1 % eye drops,ophelia pension INSTILL 1 DROP THREE TIMES DAILY STARTING AFTER SURGERY, CONTINUI NG FOR 3 WEEKS AFTER SURGERY. 11/10 completed Not Available Not Available Not Available OneTouch Ultra Test strips USE TO CHECK BLOOD SUGAR TWICE DAILY active Not Available Not Available No t Available Kenalog 10 mg/mL suspensio n for injection Take 20 mg by injectio n route. [address] [facility]: [phone] Not Available Not Available Not Available amlodipin e 10 mg tablet 07/12 completed Not Available Not Available Not Available levothyro xine 50 mcg tablet TAKE 1/2 (ONE-CALIN F) TABLET BY MOUTH ONCE DAILY active Not Available Not Available No t Available hydrocodo ne 7.5 mg-acetam inophen 325 mg tablet 07/12 completed Not Available Not Available Not Available cephalexi n 500 mg capsule TAKE 1 CAPSULE BY MOUTH THREE TIMES DAILY 11/10 completed Not Available Not Available Not Available glimepiri de 4 mg tablet TAKE 1 TABLET BY MOUTH ONCE DAILY active Not Available Not Available No t Available indapamid e 1.25 mg tablet TAKE 1 TABLET BY MOUTH ONCE DAILY active Not Available Not Available No t Available nitroglyc lashay 0.4 mg sublingua l tablet DISSOLVE ONE TABLET UNDER THE TONGUE EVERY 5 MINUTES NEEDED FOR CHEST PAIN. DO NOT EXCEED A TOTAL OF 3 DOSES IN 15 MINUTES active Not Available Not Available No t Available gabapenti n 300 mg capsule TAKE 2 CAPSULES BY MOUTH IN THE MORNING, 2 CAPSULES AT NOON AND 1 CAPSULE IN THE EVENING active Not Available Not Available No t Available mupirocin 2 % topical ointment APPLY TO AFFECTED AREA TWICE DAILY. active Not Available Not Available No t Available Cheratuss in AC 10 mg-100 mg/5 mL oral liquid TAKE 10 ML (CC) BY MOUTH EVERY 4 HOURS NEEDED 07/12 completed Not Available Not Available Not Available timolol maleate 0.5 % eye drops INSTILL 1 DROP INTO EACH EYE IN THE MORNING active Not Available Not Available No t Available lisinopri l 40 mg tablet TAKE 1 TABLET BY MOUTH ONCE DAILY active Not Available Not Available No t Available losartan 100 mg tablet 07/12 completed Not Available Not Available Not Available Asprin Ec Low Dose 81 mg tablet,de layed release Take 1 tablet every day by oral route. 2018 active Not Available Not Available Not Avai lable Marcaine (PF) 0.5 % (5 mg/mL) injection solution Take 2 mL by injectio n route. 11/15 completed Not Available Not Available Not Available ORTHOVISC 30 mg/2 mL intra-art icular syringe Inject 2 mL every week by intra-ar ticular route. 2024 active Not Available Not Available Not Avai lable DILT-XR 180 mg capsule, extended release TAKE 1 CAPSULE BY MOUTH ONCE DAILY 11/10 completed Not Available Not Available Not Available OneTouch UltraSoft Lancets USE NEW LANCET TO CHECK GLUCOSE TWICE DAILY 11/10 completed Not Available Not Available Not Available Antifunga l (clotrima zole) 1 % topical cream APPLY CREAM TOPICALL Y TO THE AFFECTED AREA(S) ON FOOT ONCE DAILY active Not Available Not Available No t Available Euflexxa 10 mg/mL (mw 2.4-3.6 million) intra-art icular syringe Inject 2 mL by intra-ar ticular route for 35 days. 03/20/ 2025 active Not Available Not Available Not Avai lable magnesium 2018 active Not Available Not Available Not Avai lable Glucosami ne 11/10 completed Not Available Not Available Not Available Citracal 2018 active Not Available Not Available Not Avai lable metformin 02/13 completed duplicat e Not Available Not Available Not Available lidocaine (PF) 10 mg/mL (1 %) injection solution In office injectio n administ ered by the provider 01/[address] [facility]: [phone] Not Available Not Available Not Available Januvia 100 mg tablet 07/12 completed Not Available Not Available Not Available diclofena c 1 % topical gel 07/12 completed Not Available Not Available Not Available Onglyza 2.5 mg tablet 07/12 completed Not Available Not Available Not Available B12 2018 active Not Available Not Available Not Avai lable ropivacai ne (PF) 5 mg/mL (0.5 %) injection solution Take 20 mg by injectio n route. 11/[address] [facility] [phone] Not Available Not Available Not Available Xarelto 20 mg tablet TAKE 1 TABLET BY MOUTH AT BEDTIME active Not Available Not Available No t Available BD Insulin Syringe Ultra-Fin e 0.5 mL 31 gauge x 01/25 USE DIRECTED active Not Available Not Available No t Available naloxone 4 mg/actuat ion nasal spray CALL 911. ADMINIST ER A SINGLE SPRAY INTRANAS ALLY INTO ONE NOSTRIL UPON SIGNS OF OPIOID OVERDOSE . MAY REPEAT AFTER 3 MINUTES IF NO RESPONSE . 11/15 completed Not Available Not Available Not Available Shingrix (PF) 50 mcg/0.5 mL intramusc ular suspensio n, kit 07/16 completed Not Available Not Available Not Available Ozempic 0.25 mg or 0.5 mg (2 mg/1.5 mL) subcutane ous pen injector Inject by subcutan eous route. 01/13 completed Not Available Not Available Not Available OneTouch Ultra Blue Test Strip USE STRIP TO CHECK GLUCOSE TWICE DAILY active Not Available Not Available No t Available OneTouch Delica Plus Lancet 33 gauge USE NEW LANCET TO CHECK GLUCOSE TWICE DAILY active Not Available Not Available No t Available Lagevrio 200 mg capsule (EUA) TAKE 4 CAPSULES BY MOUTH EVERY 12 HOURS FOR 5 DAYS 11/15 completed Not Available Not Available Not Available Dexcom G7 Automation Design Engineer USE DIRECTED active Not Available Not Available No t Available Dexcom G7 Sensor device CHANGE EVERY 10 DAYS. USE TO MONITOR BLOOD SUGARS active Not Available Not Available No t Available OneTouch UltraSoft 2 Lancet 30 gauge USE NEW LANCET TO CHECK GLUCOSE TWICE DAILY active Not Available Not Available No t Available Ultra-Fin e Insulin Syringe 1/2 mL 31 gauge x 15/64 USE NEW SYRINGE TWICE DAILY WITH NOVOLIN active Not Available Not Available No t Available Vitals Date Recorded Body height Body mass index (BMI) Body weight Provider Name and Address Organization Details Last Updated DateTime 11/23/2024 167.64 cm 29.5 kg/m2 17320.4 g [employer] 11/23/2024 10:22:00 Date Recorded Body height Body mass index (BMI) Body weight Provider Name and Address Organization Details Last Updated DateTime 11/29/2024 167.64 cm 29.5 kg/m2 48507.4 g [employer] 11/29/2024 09:42:08 Date Recorded Body height Body mass index (BMI) Body weight Provider Name and Address Organization Details Last Updated DateTime 02/28/2025 167.64 cm 29.2 kg/m2 04070.22 g Nya Tiago, [employer] 02/28/2025 10:03:46 Date Recorded Body height Body mass index (BMI) Body weight Provider Name and Address Organization Details Last Updated DateTime 05/31/2025 167.64 cm 29.7 kg/m2 02003 g [employer] Level 05/31/2025 10:20:05 Date Recorded Body height Body mass index (BMI) Body weight Provider Name and Address Organization Details Last Updated DateTime 06/07/2025 167.64 cm 29.7 kg/m2 28602 g [employer] 06/07/2025 10:24:12 Social History Question Answer Notes LastModified by Organizat ion Details LastModified Time Tobacco Smoking Status Former Smoker Nya Bonillas, JUAN null, [place] [facility] 11/15/2024 10:01:58 When Did You Quit Smoking? 15+yearssin regulo ette 1 Pack Per Day Until 1986 Information not available 11/15/2024 What Was The Date Of Your Most Recent Tobacco Screening? 06/07/2025 Information not available 06/07/2025 How Many Years Have You Smoked Tobacco? 18 Information not available 11/15/2024 Sex: Unknown Functional Status Question Answer Note LastModified by Organization D etails LastModified Time What is your level of alcohol consumption? None Information not available 11/11/2023 Mental Status None recorded. Family History Relationship Description Onset Age of this Age Resolved Age Notes LastModified by Organization Details LastModified Time Father Heart disease Not available 2023 11:27:20 Mother Hypertensive disorder Not available 2023 11:29:39 Mother Diabetes mellitus nephew Not available 2023 11:30:09 Mother Heart disease Not available 2023 11:27:25 Maternal Grandmother Cerebrovascu lar accident [email or web address] Not available 10:22:17 Maternal Grandmother Diabetes mellitus Not available 2023 11:30:27 Sister Heart disease Not available 2023 11:27:30 Sister Hypertensive disorder Not available 2023 11:29:51 Maternal Grandfather Family history of stroke [email or web address] Not available 06/07 10:22:17 Brother Heart disease Not available 2024 10:00:13 Unspecified Relation Kidney disease nephew Not available 2024 10:00:53 Notes:cancer-nephew Medical History Condition Response CANCER: SPECIFY Y ARTHRITIS Y USE OF BLOOD THINNERS Y VASCULAR DISEASE Y DIABETES, TYPE Y HEART DISEASE/HEART PROBLEMS Y LUNG DISEASE/DISORDER Y HEART ARRHYTHMIA Y HYPERTENSION Y Gynecological HistoryNo gynecological history recorded. Obstetrics History GPAL:G 0 P 0 0 0 0 Past Encounters Encounter ID Performer Location Encounter Start Date Encounter Closed Date Diagnosis/Indication Diagnosis SNOMED-CT Code Diagnosis ICD10 Code Diagnosis IMO Codes Diagnosis Note [id number] SARAH Smiley [facility] [address] [place] [address] 12/16/2020 00:00:00 12/16/2020 15:52:21 [id number] SARAH Smiley [facility] [address] [place] [address] 03/23/2021 00:00:00 03/23/2021 13:51:38 [id number] Jose Francisco MD [facility] [address] [place] [address] 06/29/2021 00:00:00 06/29/2021 10:25:55 [id number] Jose Francisco MD [facility] [address] [place] [address] 08/31/2021 00:00:00 08/31/2021 09:40:15 [id number] Jose Francisco MD [facility] [address] [place] [address] 12/11/2021 00:00:00 12/11/2021 15:28:43 [id number] Evans Pteers MD [facility] [address] [place] [address] 01/13/2022 00:00:00 01/24/2022 14:24:21 [id number] Jose Francisco MD [facility] [address] [place] [address] 03/08/2022 00:00:00 03/08/2022 09:47:05 [id number] Jose Francisco MD [facility] [address] [place] [address] 06/11/2022 00:00:00 06/11/2022 15:09:18 [id number] Jose Francisco MD [facility] [address] [place] [address] 09/02/2022 00:00:00 09/02/2022 11:40:44 [id number] Jose Francisco MD [facility] [address] [place] [address] 03/28/2023 10:40:10 03/28/2023 11:43:38 Osteoarthritis of left knee joint 9998658046 44737 M17.12 History of total knee arthroplasty 9318761187 105 Z96.928 [id number] Evans Peters MD [facility] [address] [place] [address] 06/23/2023 13:46:45 06/23/2023 14:21:49 Osteoarthritis of left knee joint 0263894331 27075 M17.12 [id number] Evans Peters MD [facility] [address] [place] [address] 08/11/2023 11:03:29 08/11/2023 13:33:07 Osteoarthritis of left knee joint 7445200516 57027 M17.12 Pain of le ft knee joint 6100314292 16125 M25.562 History of right total knee replacement 4056193085 144799 Z96.759 [id number] SARAH Smiley [facility] [address] [place] [address] 08/18/2023 11:03:52 08/18/2023 11:28:20 Osteoarthritis of left knee joint 1073631515 37213 M17.12 Pain of le ft knee joint 6695294766 55992 M25.161 [id number] SARAH Smiley [facility] [address] [place] [address] 08/25/2023 11:04:21 08/25/2023 13:48:36 Osteoarthritis of left knee joint 5902671064 00055 M17.12 Pain of le ft knee joint 9661363374 94594 M25.562 History of right total knee replacement 6278697044 110450 Z96.154 [id number] Evans Peters MD [facility] [address] [place] [address] 11/11/2023 11:02:25 11/11/2023 12:24:28 Osteoarthritis of left knee joint 6240719125 21498 M17.12 Pain of le ft knee joint 7714076071 29430 M25.735 [id number] Jonnathan Vazquez MD [facility] 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 [place] [address] 04/30/2024 09:40:56 04/30/2024 10:03:03 Acquired trigger finger of left ring finger 2429477054 55245 M65.342 Osteoarthr itis of left knee joint 1475547720 14537 M17.12 Pain of le ft knee joint 3643103044 76489 M25.713 [id number] Jonnathan Vazquez MD [facility] [address] [place] [address] 05/07/2024 10:45:00 05/07/2024 11:23:22 Osteoarthritis of left knee joint 7108566448 97034 M17.12 Pain of le ft knee joint 5271753419 27950 M25.642 [id number] Jonnathan Vazquez MD [facility] [address] [place] [address] 05/15/2024 14:48:17 05/15/2024 15:19:33 Osteoarthritis of left knee joint 0568572850 85187 M17.12 Pain of le ft knee joint 9136835572 50864 M25.169 [id number] Jonnathan Vazquez MD [facility] [address] [place] [address] 10/11/2024 09:29:09 10/11/2024 09:49:29 Osteoarthritis of left knee joint 5616994001 05914 M17.12 Pain of le ft knee joint 9011452534 76699 M25.562 History of right total knee replacement 7922385675 277020 Z96.900 [id number] Jonnathan Vazquez MD [facility] [address] [place] [address] 11/15/2024 09:34:49 11/15/2024 10:13:22 Osteoarthritis of left knee joint 1998286429 36292 M17.12 Pain of le ft knee joint 5874057317 40372 M25.430 [id number] Jonnathan Vazquez MD [facility] [address] [place] [address] 11/23/2024 10:19:43 11/23/2024 10:35:47 Osteoarthritis of left knee joint 1501020098 32836 M17.12 Pain of le ft knee joint 9745254606 82496 M25.668 [id number] Jonnathan Vazquez MD [facility] [address] [place] [address] 11/29/2024 09:37:43 11/29/2024 10:14:25 Osteoarthritis of left knee joint [id number] M17.12 Pain of le ft knee joint [id number] M25.121 [id number] Jonnathan Vazquez MD [facility] [address] [place] [address] 02/28/2025 09:59:05 02/28/2025 11:40:02 Osteoarthritis of left knee joint [id number] [id number] M17.12 Pain of le ft knee joint [id number] M25.585 [id number] Jonnathan Vazquez MD [facility] [place] [address] [place] [address] 05/31/2025 10:17:15 05/31/2025 10:28:44 Osteoarthritis of left knee joint [id number] 91762 M17.12 Pain of le ft knee joint [id number] M25.625 [id number] Jonnathan Vazquez MD [facility] [place] [address] [facility] [address] [place] [address] 06/07/2025 10:20:39 06/07/2025 11:33:16 Osteoarthritis of left knee joint [id number] 59490 M17.12 Pain of le ft knee joint [id number] 76246 M25.562 Health Concerns Section Related Observation LastModified by Organization Detai ls LastModified Time None Recorded Concern Status LastModified by Organization Details LastModified Time None Recorded Advance Directives Directive None Recorded Payers Insurance Date Sequence Insurance Name Policy Number Policy Tejeda Covered Member ID Tejeda Member ID Guarantor Name 06/13/2025 1 [place] Wanda García [id number] Wanda García 06/12/2025 2 [place] [id number] Wanda García [id number] Wanda García Notes Date Note Type Note Provider Name and Address Organization Details Recorded Time 11/23/2024 text/html The patient returns for Euflexxa injection number 2 left knee. The patient has severe primary osteoarthritis with fynj-mq-yews changes and valgus deformity. The worst changes on the lateral and patellofemoral compartments. She is coming in for gel shots she has gotten pretty good relief from this previously. Today she denies any problems after the last injection. No effusion or swelling no erythema heat or other signs of infection. SARAH Smiley [address], [place], [address], [employer] 11/23/2024 10:35:16 11/29/2024 text/html The patient returns for Euflexxa injection number 3. The patient has severe primary osteoarthritis of the left knee joint. The patient is lateral and patellofemoral compartments. The patient is coming in for gel shots gets pretty good relief previously she is getting good relief so far. SARAH Smiley [address], [place], [address], [employer] 11/29/2024 10:08:37 02/28/2025 text/html The patient returns for cortisone injection left knee. I saw her 3 months ago we completed a round of gel shots. She states this gave her very good relief until about a week ago then her pain started to return. It is about a 7 on a scale of 1-10 today. She denies any new trauma or injury no erythema effusion or signs of infection. She does have severe primary osteoarthritis left knee joint the patient has tjix-lv-fzna changes lateral and patellofemoral compartments. She would like a shot of cortisone today. SARAH Smiley [address], [place], [address], [facility] [employer] 02/28/2025 10:20:57 05/31/2025 text/html The patient returns for Orthovisc injection number 1 into the left knee. She has a previous right total knee arthroplasty this is doing well the left knee however shows severe primary osteoarthritis with valgus deformity chlv-sb-iawq changes lateral and patellofemoral compartments previous injections worked well for her she would like to repeat the gel shots today pain is about a 7 on a scale of 1-10 denies any new trauma or injury no new symptoms or complaints. SARAH Smiley [address], [place], [address], [facility] [employer] 05/31/2025 10:32:16 06/07/2025 text/html Patient returns for Orthovisc injection number 2 left knee. The patient has severe primary osteoarthritis with valgus iuwb-aj-uxtg deformity in the lateral and patellofemoral compartments. She is doing fairly well with the 1st injection states it gave her some decent relief already she comes in today for the 2nd 1 denies any other problems. SARAH Smiley [address], [place], [address], [facility] [employer] 06/07/2025 10:37:56 OBGyn Episode No OBEpisode recorded.
--- OUTSIDE RECORDS SUMMARY | 2025-06-13 06:40 | XMS_ITS | Clinical Summary ---
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 Active lisinopril (PRINIVIL) 20 mg tablet Take 20 mg by mouth 2 times daily . Active metoprolol tartrate (LOPRESSOR) 100 mg tablet Take 100 mg by mouth daily. Active levothyroxine 75 mcg tablet Take 75 mcg by mouth daily internal communications manager. 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
--- OUTSIDE RECORDS SUMMARY | 2025-06-13 06:40 | XMS_ITS | Clinical Summary ---
Author Organization [facility] [place] [address] Address [address] [place] [address] Care Team Providers Care Burial Vault Deliverer And Installer Name Role Phone Sadia Cloud MD Primary Care Provider Allergies No known active allergies Medications glimepiride (AMARYL) 4 mg tablet take 1 tablet (4MG) by oral route every day 0 2 Active multivitamin-mi n-ixsw-GJ-vit K (MULTI FOR HER) 18 mg iron-600 [...] ophthalmic solution 1 drop nightly 4 Active nitroglycerin (NITROSTAT) 0.[address] 1 tablet (0.4 mg total) under the tongue every 5 (five) minutes as needed for chest pain 25 tablet 2 5 Active metoprolol XL (TOPROL-XL) 100 mg 24 hr tablet TAKE 1 & 1/2 (ONE & ONE-HALF) TABLETS BY MOUTH ONCE DAILY 135 tablet 1 5 Active atorvastatin (LIPITOR) 40 mg tablet Take 1 tablet by mouth once daily 90 tablet 1 5 Active Active Problems Problem Noted Date Diagnosed Date S/P drug eluting coronary stent placement 2024 Atherosclerosis of artery of extremity with intermittent claudication 10/18/2024 Assessment & Plan (10/18/2024 3:44 PM HEALTH CARE / MEDICAL JOB TITLES): Impression: Patient is status post left femoral [...] 09/30/2023 Assessment & Plan (10/18/2024 3:45 PM HEALTH CARE / MEDICAL JOB TITLES): Impression: Chronic and stable. Plan: Continue glimepiride Assessment & Plan (09/30/2023 1:09 PM HEALTH CARE / MEDICAL JOB TITLES): Impression: Chronic with good glucose control. Plan: [...] for DVT proph. Pain controlled with PRN Nunez. Assessment & Plan (12/16/2022 12:44 PM CDT): Complete abx as ordered. Continue wound care as above. PT/OT. Assessment & Plan (12/13/2022 11:22 AM CDT): Pain well controlled. Was started on nadia Oxy but does not believe needs. Will d/c. Continue Nunez PRN - reduce Tyl and change to [...] (peripheral artery disease) 11/27/2022 Assessment & Plan (04/30/2025 1:59 PM CDT): Elevated velocities in the proximal portion of her left fem-pop bypass, we will re-evaluate in 3 months. If velocities increased further will need an angiogram with possible intervention. Continue risk factor modification with ASA statin therapy. Assessment & Plan (04/11/2024 9:50 AM CDT): Status post left fem-pop bypass and toe amputations, overall doing well. No recurrent claudication or wounds. Continue risk factor modification with ASA statin therapy and good blood sugar control follow up in 6 months for repeat noninvasives. Assessment & Plan (09/30/2023 1:07 PM HEALTH CARE / MEDICAL JOB TITLES): Impression: Patient is status post left femoral [...] femoral-popliteal bypass graft with 8 mm Propaten Gadsden-Brandon on 12/02/[address] Monge. Ivon/sutures remain in place. Pain controlled. Continue gabapentin, norco PRN. HTWB with boot. Vascular did not comeover and see at [facility] [place] this week. Staff to make appt for this week for vascular to see outpt. Dtr to have wound care training today. Assessment & Plan (12/23/2022 1:09 PM CDT): s/p left external and common femoral artery endarterectomy with pericardial patch angioplasty, Left femoral-popliteal bypass graft with 8 mm Propaten Gadsden-Brandon on 12/02/[address] Monge. Ivon/sutures remain [...] femoral-popliteal bypass graft with 8 mm Propaten Gadsden-Brandon on 12/02/[address] Monge. SEE PAIN CONTROL ABOVE. Ivon in place. Will have nursing contact for staple removal date. Assessment & Plan (12/09/2022 5:20 PM CDT): Pt is s/p left external and common femoral artery endarterectomy with pericardial patch angioplasty, Left femoral-popliteal bypass graft with 8 mm Propaten Gadsden- Brandon on 12/02/[address] Monge. Continue wound care. On aspirin statin. Follow up was Vas outpatient Peripheral sensory neuropathy 11/27/2022 Assessment & Plan (12/09/2022 5:24 PM CDT): Symptoms controlled with gabapentin 600 mg b.i.d. Osteoarthritis of left knee 03/08/2022 Meningioma 11/13/2019 01/11/2023 Malignant neoplasm of unspec ified part of left bronchus or lung 11/01/2019 01/11/2023 Coronary artery disease invo lving aniak coronary artery of aniak heart without angina pectoris 08/22/2018 Assessment & Plan (04/30/2025 1:58 PM CDT): Stable continue ASA statin Assessment & Plan (12/09/2022 5:23 PM CDT): Denies any acute chest pain. Continue statin, aspirin, Imdur Pulmonary HTN 02/13/2018 Pleural effusion 08/16/2017 01/11/2023 Hypertension associated with diabetes 04/05/2017 Assessment & Plan (04/30/2025 1:58 PM CDT): Stable continue lisinopril metoprolol Assessment & Plan (10/18/2024 3:45 PM HEALTH CARE / MEDICAL JOB TITLES): Impression: Chronic with elevated blood pressure today. [...] dyslipidemia Assessment & Plan (09/30/2023 1:09 PM HEALTH CARE / MEDICAL JOB TITLES): Impression: Chronic and stable. Plan: Continue Lipitor [...] Encounters Date Type Department Care Team Description 04/24/2025 10:30 AM CDT Office Visit [facility] Medical [facility] Vascular at [address] [place] [address] Harish Paulino MD PAD (peripheral artery disease) (Primary Dx); Hypertension associated with diabetes (HCC); Coronary artery disease involving aniak coronary artery of aniak heart without angina pectoris 04/24/2025 Orders Only [facility] Medical [facility] Vascular at [address] [place] [address] Harish Paulino MD Atherosclerosis of aniak artery of both lower extremities with intermittent claudication (Primary Dx) 04/15/2025 2:00 PM CDT Ancillary Procedure [facility] Vascular and Vein Surgery at [address] [place] [address] PVD (peripheral vascular disease) 04/15/2025 2:00 PM CDT Ancillary Procedure [facility] Vascular and Vein Surgery at [address] [place] [address] PVD (peripheral vascular disease) from Last 3 Months Immunizations Immunization Administration [...] History Date Comments Hypertension Hypertension Diabetes mellitus diabetes Osteoarthritis osteoarthritis Hx Other Medical cataract Hypothyroidism hypothyroidism Hx Other Medical dyslipidemia Chronic coronary artery disease Coronary Artery Disease CKD (chronic kidney disease) Diabetic peripheral neuropathy Cancer (HCC) Lung cancer (HCC) 11/12/2015 Glaucoma Heart disease Family History Medical History Relation Name Comments Other Brother 2 A-Fib; Heart attack Father Corby Serrano () My ocardial Infarction; /Myocardial Infarction; Cause of : Myocardial Infarction Heart attack Mother Letitia Ruvalcaba Myocardial Infarction; Cause of : Myocardial Infarction Alzheimer's disease Sister 1 Letitia Peg Arthritis Sister 1 Letitiajacky Gilbertgler Hypertension Sister 1 Letitiajacky Gilbertgler Memory loss Sister 1 Letitiajacky Gilbertgler Stent Sister 2 Coronary Stent Placement; Relation [...] oz pur e alcohol) Social Connection and Isolation Panel Answer Date Recorded In a typical week, how many times do you talk on the phone with family, friends, or neighbors? More than three times a week 11/29/2022 How often do you get togethe r with friends or relatives? More than three times a week 11/29/2022 How often do you attend chur ch or restorationism services? More than 4 times per year 11/29/2022 Do you belong to any clubs o r organizations such as baptist groups, unions, fraternal or athletic groups, or [...] on file Legal Sex Female 2:02 AM HEALTH CARE / MEDICAL JOB TITLES Gender Identity Not on file Sexual Orientation Not on file Obstetrics History Last Filed Vital Signs Vital Sign Reading Time Taken Comments Blood Pressure 208/72 04/24/2025 11:10 AM CDT Pulse 66 04/24/2025 11:10 AM CDT Temperature 36.4 C (97.5 F) 12/27/2022 11:50 AM CDT Respiratory Rate 16 12/27/2022 11:50 AM CDT Oxygen Saturation 95% 04/24/2025 11:10 AM CDT Inhaled Oxygen Concentration - - Weight 83.5 kg (184 lb) 04/24/2025 11:10 AM CDT Height 167.6 cm (5' 6) 04/24/2025 11:10 AM CDT Body Mass Index 29.7 04/24/2025 11:10 AM CDT Plan of Treatment Health Maintenance [...] Additional history exists Covid-19 Vaccine (3 - 2024-2 6 season) 2025 11/11/2020, 10/09/2020 Influenza Vaccine (#1) 2025 05/29/2019, 2017 Zoster Vaccine Completed 11/10/2018, 07/24/2018 Medical Devices Implanted Type Area Financial Services Intern Device Identifier Shelf Expiration Date Model / Serial / Lot Divers[employer] Weck Horizon 24 Cartridge Ligate Triangulate Cross Section Heart [id number] - [id number] Implanted:Qty: 2 on 12/02/2022 by Zeeshan Monge MD at [facility] Left: Femur [employer] [id number] / / [employer]den [employer] Gadsden 8mm 80cm Stretch Thin Wall Graft Vascular Heparin Propaten [id number] - [id number] - [id number] Implanted:Qty: 1 on 12/02/2022 by Zeeshan Monge MD at [facility] Left: Femur W[employer]den [employer] [id number] 03/26/2026 [id number] / [id number] / [facility] Yenny Patch Vascuguard 0.88cm [id number] - [id number] Implanted:Qty: 1 on 12/02/2022 by Zeeshan Monge MD at [facility] LIANAI [id number] / / [id number] Procedures Procedure Name Priority Date/Time Associated Diagnosis Comments VL US ARTERIAL DUPLEX LOWER EXTREMITY BILATERAL Schedule Routine, Read Routine (OP Routine) 04/15/2025 4:06 PM CDT PVD (peripheral vascular disease) US WILFRED Schedule Routine, Read Routine (OP Routine) 04/15/2025 2:56 PM CDT PVD (peripheral vascular disease) POCT LIPID PANEL Routine 02/14/2023 9:48 AM CDT Mixed diabetic hyperlipidemia associated with type 2 diabetes mellitus (CMS/HCC) (HCC) EGFR Routine 12/27/2022 6:43 AM CDT HEMOGLOBIN A1C Routine 11/27/2022 9:56 PM CDT from Last 3 Months or Most Recently Relevant to Health Maintenance Results * US Arterial Duplex Lower Extremity Bilateral (04/15/2025 4:06 PM CDT) Anatomical Region Laterality Modality Vascular Bilateral Ultrasound 04/15/2025 1:49 PM CDT Narrative 04/17/2025 11:24 AM CDT Vascular & Vein Surgery [address] [facility] [place] [address] Lower Extremity Arterial Duplex Report Patient Name: KAFWANDA HEATON K : 1945 (79y 6m) Gender: F Study Date: 04/15/2025 01:49:26 PM Ht(Inch): Wt(Lb): BSA: Embedded Case Manager: BORIS Location: [facility] Order Provider: HARISH PAULINO Quality: Adequate Ref Provider: HARISH PAULINO PROCEDURES: Arterial Report: A non-invasive vascular imaging study of the bilateral lower extremity arteries and bypass grafts was performed using B-mode ultrasound, color flow, and spectral Doppler. INDICATIONS: S/P Lt fem-pop BPG 12/02/22; L1 & L2 amp. HISTORY: HTN. HLD. DM. CAD S/P stents. Afib. Lung CA. Former smoker. COMPARISONS: The previous exam was completed on 10/08/24: Lt BATTERY TESTER FIELD 50-75, patent LLE BPG with elevated velocities at prox anast with decreased velocities throughout. Compared to prior there is a slight increase in velocity at the bypass. MEASUREMENTS: Right Value Left Value Rt BATTERY TESTER FIELD Dst PSV 165.00 cm/sec Lt BATTERY TESTER FIELD Dst PSV 304.00 cm/sec Rt Profunda Prx PSV 231.00 cm/sec Lt Ant Tibial Prx PSV 76.00 cm/sec Rt SFA Prx PSV 310.00 cm/sec Lt Post Tibial Prx PSV 53.00 cm/sec Rt SFA Mid PSV 340.00 cm/sec Lt Post Tibial Mid PSV 87.00 cm/sec Rt SFA Dst PSV 88.00 cm/sec Lt Peroneal Prx PSV 48.00 cm/sec Rt Pop Prx PSV 83.00 cm/sec Lt Peroneal Mid PSV 62.00 cm/sec Rt Pop Dst PSV 61.00 cm/sec Rt Ant Tibial Prx PSV 34.00 cm/sec Rt Post Tibial Prx PSV 17.00 cm/sec Rt Post Tibial Mid PSV 21.00 cm/sec Rt Peroneal Prx PSV 32.00 cm/sec Rt Peroneal Mid PSV 54.00 cm/sec GRAFTS: Left Value Location Lt fem-pop BPG Lt BPG Inflow PSV 321.00 cm/sec Lt Anast Prx PSV 440.00 cm/sec Lt BPG Prx PSV 66.00 cm/sec Lt BPG Mid PSV 33.00 cm/sec Lt BPG Dst PSV 67.00 cm/sec Lt Anast Dst PSV 134.00 cm/sec Lt BPG Outflow PSV 76.00 cm/sec FINDINGS: Right: Triphasic arteries include the right common femoral artery and profunda femoral artery. Monophasic arteries include the right proximal superficial femoral artery, mid superficial femoral artery, distal superficial femoral artery, popliteal artery, tibeoperoneal trunk, anterior tibial artery, posterior tibial artery and peroneal artery. Increased velocities noted of the right profunda femoral artery, proximal superficial femoral artery and mid superficial femoral artery. Left: Triphasic arteries include the left common femoral artery. Biphasic arteries include the left anterior tibial artery and posterior tibial artery. Monophasic arteries include the left peroneal artery. Increased velocities noted of the left common femoral artery. Bypass Graft 1: The bypass graft is located in the left femoral to popliteal artery. Increased velocities at the inflow and arterial anastomosis. CONCLUSION: 1. There is moderate 50-75% stenosis in the right profunda femoral artery and superficial femoral artery. 2. Left common femoral artery to popliteal bypass with evidence of stenosis near the proximal anastomosis. ATTESTATION: I have reviewed and interpreted the pertinent images and measurements of this study. I attest to the conclusions in the final report that is provided above. Electronically Signed By: Harish Paulino MD 04/17/2025 10:35:11 AM CDT Procedure Note Harish Paulino MD - 04/17/2025 Vascular & Vein Surgery [address] [place] [address] Lower Extremity Arterial Duplex Report Patient Name: WANDA GARCÍA K : 1945 (79y 6m) Gender: F Study Date: 04/15/2025 01:49:26 PM Ht(Inch): Wt(Lb): BSA: Embedded Case Manager: BORIS Location: [facility] Order Provider: HARISH PAULINO Quality: Adequate Ref Provider: HARISH PAULINO PROCEDURES: Arterial Report: A non-invasive vascular imaging study of the bilaterallower extremity arteries and bypass grafts was performed using B-mode ultrasound, colorflow, and spectral Doppler. INDICATIONS: S/P Lt fem-pop BPG 12/02/22; L1 & L2 amp. HISTORY: HTN. HLD. DM. CAD S/P stents. Afib. Lung CA. Former smoker. COMPARISONS: The previous exam was completed on 10/08/24: Lt BATTERY TESTER FIELD 50-75, patent LLE BPGwith elevated velocities at prox anast with decreased velocities throughout. Comparedto prior there is a slight increase in velocity at the bypass. MEASUREMENTS: Right Value Left Value Rt BATTERY TESTER FIELD Dst PSV 165.00 cm/sec Lt BATTERY TESTER FIELD Dst PSV 304.00 cm/sec Rt Profunda Prx PSV 231.00 cm/sec Lt Ant Tibial Prx PSV 76.00 cm/sec Rt SFA Prx PSV 310.00 cm/sec Lt Post Tibial Prx PSV 53.00 cm/sec Rt SFA Mid PSV 340.00 cm/sec Lt Post Tibial Mid PSV 87.00 cm/sec Rt SFA Dst PSV 88.00 cm/sec Lt Peroneal Prx PSV 48.00 cm/sec Rt Pop Prx PSV 83.00 cm/sec Lt Peroneal Mid PSV 62.00 cm/sec Rt Pop Dst PSV 61.00 cm/sec Rt Ant Tibial Prx PSV 34.00 cm/sec Rt Post Tibial Prx PSV 17.00 cm/sec Rt Post Tibial Mid PSV 21.00 cm/sec Rt Peroneal Prx PSV 32.00 cm/sec Rt Peroneal Mid PSV 54.00 cm/sec GRAFTS: Left Value Location Lt fem-pop BPG Lt BPG Inflow PSV 321.00 cm/sec Lt Anast Prx PSV 440.00 cm/sec Lt BPG Prx PSV 66.00 cm/sec Lt BPG Mid PSV 33.00 cm/sec Lt BPG Dst PSV 67.00 cm/sec Lt Anast Dst PSV 134.00 cm/sec Lt BPG Outflow PSV 76.00 cm/sec FINDINGS: Right: Triphasic arteries include the right common femoral artery andprofunda femoral artery. Monophasic arteries include the right proximal superficial femoralartery, mid superficial femoral artery, distal superficial femoral artery, poplitealartery, tibeoperoneal trunk, anterior tibial artery, posterior tibial artery andperoneal artery. Increased velocities noted of the right profunda femoral artery, proximalsuperficial femoral artery and mid superficial femoral artery. Left: Triphasic arteries include the left common femoral artery. Biphasicarteries include the left anterior tibial artery and posterior tibial artery.Monophasic arteries include the left peroneal artery. Increased velocities noted of the leftcommon femoral artery. Bypass Graft 1: The bypass graft is located in the left femoral topopliteal artery. Increased velocities at the inflow and arterial anastomosis. CONCLUSION: 1. There is moderate 50-75% stenosis in the right profunda femoral arteryand superficial femoral artery. 2. Left common femoral artery to popliteal bypass with evidence ofstenosis near the proximal anastomosis. ATTESTATION: I have reviewed and interpreted the pertinent images and measurements ofthis study. I attest to the conclusions in the final report that is provided above. Electronically Signed By: Harish Paulino MD 04/17/2025 10:35:11 AM CDT us Harish Paulino MD IMG US PROCEDURES Final Result * US WILFRED (04/15/2025 2:56 PM CDT) Anatomical Region Laterality Modality Vascular N/A Ultrasound 04/15/2025 1:44 PM CDT Narrative 04/17/2025 11:24 AM CDT Vascular & Vein Surgery [address] [place] [address] Lower Extremity Arterial Doppler Report Patient Name: WANDA GARCÍA K : 1945 Study Date: 04/15/2025 1:44:00 PM Gender: F Embedded Case Manager: Shira Zheng RVT Location: [facility] Ref Provider: HARISH PAULINO Quality: Adequate Order Provider: HARISH PAULINO PROCEDURES: Arterial Report: Ankle - Brachial Index Doppler exam. INDICATIONS: S/P Lt fem-pop BPG 12/02/22; L1 amp. HISTORY: HTN. HLD. DM. CAD S/P stents. Afib. Lung CA. Former smoker. COMPARISONS: No change compared to prior study. The previous exam was completed on 1/27/25: Rt >1.19, Lt >1.19. MEASUREMENTS: Right Value Left Value Rt Brachial Pressure 158 mmHg Lt Brachial Pressure 174 mmHg Rt PERSONAL LINES APPRAISER Pressure >220 mmHg Lt PERSONAL LINES APPRAISER Pressure >220 mmHg Rt DPA Pressure >220 mmHg Lt DPA Pressure >220 mmHg Rt 1st Digit Pressure 32 mmHg Lt PT WILFRED Resting >1.26 Rt PT WILFRED Resting >1.26 Lt DP WILFRED Resting >1.26 Rt DP WILFRED Resting >1.26 Rt Digit 1/Arm Index 0.18 FINDINGS: Right Posterior Tibial Artery Analysis: The posterior tibial waveform is retrograde. Right Anterior Tibial Artery Analysis: The anterior tibial waveform is monophasic. Right Digits: The right digit waveform is dampened. Left Posterior Tibial Artery Analysis: The posterior tibial waveform is biphasic. Left Anterior Tibial Artery Analysis: The anterior tibial waveform is biphasic. Left Digits: The left digit is amputated. CONCLUSIONS: 1. Ankle-brachial index of >1.3 is non-compressible which is consistent with arterial calcifications, thus the ankle/brachial index is not obtainable in the bilateral lower extremities. 2. There is evidence of right leg arterial insufficiency at the level of posterior tibial and anterior tibial arteries. ATTESTATION: I have reviewed and interpreted the pertinent images and measurements of this study. I attest to the conclusions in the final report that is provided above. Electronically Signed By: Harish Paulino MD 04/17/2025 10:34:23 AM CDT Procedure Note Harish Paulino MD - 04/17/2025 Vascular & Vein Surgery [address] [facility] [place] [address] Lower Extremity Arterial Doppler Report Patient Name: WANDA GARCÍA K : 1945 Study Date: 04/15/2025 1:44:00 PM Gender: F Embedded Case Manager: Shira Zheng RVT Location: [facility] Ref Provider: HARISH PAULINO Quality: Adequate Order Provider: HARISH PAULINO PROCEDURES: Arterial Report: Ankle - Brachial Index Doppler exam. INDICATIONS: S/P Lt fem-pop BPG 12/02/22; L1 amp. HISTORY: HTN. HLD. DM. CAD S/P stents. Afib. Lung CA. Former smoker. COMPARISONS: No change compared to prior study. The previous exam was completed on 10/08/24: Rt >1.19, Lt >1.19. MEASUREMENTS: Right Value Left Value Rt Brachial Pressure 158 mmHg Lt Brachial Pressure 174 mmHg Rt PERSONAL LINES APPRAISER Pressure >220 mmHg Lt PERSONAL LINES APPRAISER Pressure >220 mmHg Rt DPA Pressure >220 mmHg Lt DPA Pressure >220 mmHg Rt 1st Digit Pressure 32 mmHg Lt PT WILFRED Resting >1.26 Rt PT WILFRED Resting >1.26 Lt DP WILFRED Resting >1.26 Rt DP WILFRED Resting >1.26 Rt Digit 1/Arm Index 0.18 FINDINGS: Right Posterior Tibial Artery Analysis: The posterior tibial waveform is retrograde. Right Anterior Tibial Artery Analysis: The anterior tibial waveform is monophasic. Right Digits: The right digit waveform is dampened. Left Posterior Tibial Artery Analysis: The posterior tibial waveform is biphasic. Left Anterior Tibial Artery Analysis: The anterior tibial waveform is biphasic. Left Digits: The left digit is amputated. CONCLUSIONS: 1. Ankle-brachial index of >1.3 is non-compressible which is consistentwith arterial calcifications, thus the ankle/brachial index is not obtainable in thebilateral lower extremities. 2. There is evidence of right leg arterial insufficiency at the level ofposterior tibial and anterior tibial arteries. ATTESTATION: I have reviewed and interpreted the pertinent images and measurements ofthis study. I attest to the conclusions in the final report that is provided above. Electronically Signed By: Harish Paulino MD 04/17/2025 10:34:23 AM CDT Harish Paulino MD IMG US PROCEDURES Final [...] was last reviewed 2021. Testing performed by: [facility], [address] [place] [address]., [id number] Blood 12/27/2022 6:43 AM CDT 12/27/2022 7:02 AM CDT us Birgit Leon NP LAB BLOOD ORDERABLES Final Result Performing Organization Address [facility] Co de Phone Number [place] [address] [address] * (ABNORMAL) Hemoglobin A1c (11/27/2022 9:56 PM CDT) Hgb A1C 7.3(H) 4.0 - 5.6 % [place] Estimated Average Glucose 163 mg/dL [place] Comment: The ADA recommends reporting an estimated Average Glucose (eAG) with all Hemoglobin A1c results using the equation derived from a study of 507 normal and diabetic adults. Minority populations were underrepresented and children were not included. (Diabetes Care 31:2417-6806, 2008). The eAG is not equivalent to a fasting glucose. Blood 11/27/2022 9:56 PM CDT 11/27/2022 10:09 PM CDT us Deepika Roman MD LAB BLOOD ORDERABLES Final Re sult Performing Organization Address [facility] Co de Phone Number [facility] [address] from Last 3 Months or Most Recently Relevant to Health Maintenance Insurance MEDICARE BLUE CROSS MEDICARE SUPPLEMENT MEDICARE [facility] [address] [place] [id number] Advance Directives For more information, please contact: [phone] * Full Code (Latest Code Status on File) Date Activated Date Inactivated Comments 11/27/2022 8:45 PM 12/08/2022 6:29 PM Care Teams Burial Vault Deliverer And Installer Relationship Specialty Start Date End Date Saida Cloud MD PCP - General Family Practice 02/14/23
--- OUTSIDE RECORDS SUMMARY | 2025-06-13 06:40 | XMS_ITS ---
Author Organization [facility] [address] Address [address] [place] [address] Care Team Providers Care Door To Door Sales Representative Name Role Phone Sadia Cloud MD Primary Care Provider Active Problems Problem Noted Date Diagnosed Date S/P drug eluting coronary stent placement 2024 Atherosclerosis of artery of extremity with intermittent claudication 10/18/2024 Assessment & Plan (10/18/2024 3:44 PM BUFFET RUNNER): Impression: Patient is status post left femoral [...] 09/30/2023 Assessment & Plan (10/18/2024 3:45 PM BUFFET RUNNER): Impression: Chronic and stable. Plan: Continue glimepiride Assessment & Plan (09/30/2023 1:09 PM BUFFET RUNNER): Impression: Chronic with good glucose control. Plan: [...] for DVT proph. Pain controlled with PRN [place]. Assessment & Plan (12/16/2022 12:44 PM CDT): Complete abx as ordered. Continue wound care as above. PT/OT. Assessment & Plan (12/13/2022 11:22 AM CDT): Pain well controlled. Was started on nadia Oxy but does not believe needs. Will d/c. Continue [place] PRN - reduce Tyl and change to [...] noninvasives. Assessment & Plan (09/30/2023 1:07 PM BUFFET RUNNER): Impression: Patient is status post left femoral [...] femoral-popliteal bypass graft with 8 mm Propaten [place] on 12/02/[address] Monge. Geronimo/sutures remain in place. Pain controlled. Continue gabapentin, norco PRN. HTWB with boot. Vascular did not comeover and see at [facility] this week. Staff to make appt for this week for vascular to see outpt. Dtr to have wound care training today. Assessment & Plan (12/23/2022 1:09 PM CDT): s/p left external and common femoral artery endarterectomy with pericardial patch angioplasty, Left femoral-popliteal bypass graft with 8 mm Propaten [place] on 12/02/[address] Monge. Ivon/sutures remain in place. Increased nerve pain last night - could increase gabapentin if continues. JESSIE wrap left off today to see if helps. Nursing to contact vascular to for wound/staple removal. Assessment & Plan (12/20/2022 12:17 PM CDT): Vasc following. Continue wound care. HTWB with boot. Assessment & Plan (12/16/2022 12:43 PM CDT): Vas came over and saw patient this week. Dressing changed. Want to leave ivon in place & continue packing daily. Will fu next week. No other concerns or complaints. Assessment & Plan (12/13/2022 11:27 AM CDT): s/p left external and common femoral artery endarterectomy with pericardial patch angioplasty, Left femoral-popliteal bypass graft with 8 mm Propaten [place] on 12/02/[address] Monge. SEE PAIN CONTROL ABOVE. Geronimo in place. Will have nursing contact for staple removal date. Assessment & Plan (12/09/2022 5:20 PM CDT): Pt is s/p left external and common femoral artery endarterectomy with pericardial patch angioplasty, Left femoral-popliteal bypass graft with 8 mm Propaten [place] on 12/02/[address] Monge. Continue wound care. On aspirin statin. Follow up was Vas outpatient Peripheral sensory neuropathy 11/27/2022 Assessment & Plan (12/09/2022 5:24 PM CDT): Symptoms controlled with gabapentin 600 mg b.i.d. Osteoarthritis of left knee 03/08/2022 Meningioma 11/13/2019 01/11/2023 Malignant neoplasm of unspec ified part of left bronchus or lung 11/01/2019 01/11/2023 Coronary artery disease invo lving [place] coronary artery of [place] heart without angina pectoris 08/22/2018 Assessment & Plan (04/30/2025 1:58 PM CDT): Stable continue ASA statin Assessment & Plan (12/09/2022 5:23 PM CDT): Denies any acute chest pain. Continue statin, aspirin, Imdur Pulmonary HTN 02/13/2018 Pleural effusion 08/16/2017 01/11/2023 Hypertension associated with diabetes 04/05/2017 Assessment & Plan (04/30/2025 1:58 PM CDT): Stable continue lisinopril metoprolol Assessment & Plan (10/18/2024 3:45 PM BUFFET RUNNER): Impression: Chronic with elevated blood pressure today. [...] dyslipidemia Assessment & Plan (09/30/2023 1:09 PM BUFFET RUNNER): Impression: Chronic and stable. Plan: Continue Lipitor [...] Lifetime Dose Automatic Entry Manual Entr y Fluoro Time 0.7 minutes 0 minutes 0.7 minutes Air kerma at the reference point (Ka,r) 77 mGy 0 mGy 77 mGy DAP 30.8 Gy-cm2 0 Gy-cm2 30.8 Gy-cm2 Resolved Problems Problem Noted Date Diagnosed Date Resolved Date Ulcer of left foot with fat layer exposed 11/27/2022 12/13/2022 Pain of left calf 11/27/2022 12/13/2022 Cellulitis and abscess of foot 11/27/2022 12/16/2022 Assessment & Plan (12/13/2022 8:38 AM CDT): SEE ABOVE Myalgia 04/05/2017 12/13/2022 Preoperative state 08/02/2016 Overview (12/18/2016): Preoperative cardiovascular examination
== END 2025-06-13 06:37 | disposition home or self-care (01) ==
PROVIDERS: PCP Nurse Practitioner Family; Visit Provider Nurse Practitioner Family
DX: R91.8 Other nonspecific abnormal finding of lung field (principal); J98.11 Atelectasis; J90 Pleural effusion, not elsewhere classified; Z90.2 Acquired absence of lung [part of]; Z85.118 Personal history of other malignant neoplasm of bronchus and lung
CPT/HCPCS: 71046; 71250